=== PATIENT | female | born 1985 | race Caucasian/White ===

== ENCOUNTER 2017-04-26 08:56 | Emergency (ER) | payer SELFPAY ==
[~2017-04-26] VITALS: Ht 180.3 cm; Wt 77.0 kg
[2017-04-26 08:58] VITALS: BP 102/67; PULSE 74; RESP 20; TEMP 98.7; O2SAT 95
[2017-04-26] MEDS ORDERED: MACR100C2 PO (09:23)
--- NOTE | 2017-04-26 09:24 | PD ---
HPI Chief Complaint: Flank/Kidney Pain Time Seen by Provider: 09:09 Travel History International Travel<30 days: No Contact w/Intl Traveler<30days: No Traveled to known affect area: No History of Present Illness HPI Is a 32-year-old woman who presents to the emergency department complaining of sharp pelvic pain and back pain setting about 4 days ago with increased urination. No dysuria. No vaginal discharge or vaginal bleeding. Her last initial period was about 2 weeks ago. She is abnormal menstrual cycle since she had a ParaGard IUD placed about 4 years ago. She otherwise has been feeling generally well. No fevers or chills. No nausea or vomiting. She was incarcerated about 3 months ago and was diagnosed with chlamydia at that time. The ceiling time she's been treated for STI. She's not been sexually active since then. She has had kidney stones in the past but states that her pain was more severe at those times. History Past Medical History Narrative Medical Kidney Stones LMP: 3 weeks ago Social History Alcohol Use: No Tobacco Use: Yes Review of Systems Except as stated in HPI: all other systems reviewed are Neg Physical Exam Narrative GENERAL: Well-appearing 32-year-old woman, no acute distress. SKIN: Focused skin assessment warm/dry. NECK: Trachea midline. No JVD. CARDIOVASCULAR: Regular rate and rhythm. No murmur appreciated. RESPIRATORY: No accessory muscle use. Clear to auscultation. Breath sounds equal bilaterally. GASTROINTESTINAL: Abdomen soft, non-tender, nondistended. Hepatic and splenic margins not palpable. No CVA tenderness to percussion. MUSCULOSKELETAL: No obvious deformities. Data Data Last Documented VS Vital Signs Date Time Temp Pulse Resp B/P Pulse Ox O2 Delivery O2 Flow Rate FiO2 04/26/17 08:58 98.7 74 20 102/67 95 Room Air Orders Urinalysis - C+S If Indicated (04/26/17 09:09) Ed Urine Pregnancytest Poc (04/26/17 09:09) [facility] Medical Decision Making Medical Screen Exam Complete: Yes Emergency Medical Condition: Yes Differential Diagnosis UTI, STI, kidney stone, pyelonephritis, other Narrative Course Medical decision making This a 32 year-old woman presents to the emergency department complaining of pelvic pain, and polyuria suggestive of cystitis. She looks well. She's no abdominal tenderness or CVA tenderness to percussion. She has not been sexually active recently. Kidney stone and PID are also possible. We'll check urine, strongly suggestive of cystitis, we'll treat, otherwise reassess. Diagnosis Primary Impression: Acute cystitis Additional Instructions: Take antibiotics as prescribed. Return to the emergency department for any worsening abdominal pain, fevers, vomiting, or any other new or worsening symptoms. Follow up with your primary doctor in 3-5 days if you're not completely well. Med/Other Pt SpecificInfo: Prescription(s) given Scripts Nitrofurantoin Monohydrate Macrocrystals (Macrobid)100 Mg [id number] Mg PO BID 14 Days Ref 0 Prov:Danis Webber MD 04/26/17 Disposition: 01 DISCHARGE HOME Condition: Stable Danis Webber MD Apr 26, 2017 09:24
[2017-04-26 09:41] LABS: BLOOD, URINE NEG (NEG); GLUCOSE,URINE NEG (NEG); KETONE, URINE NEG (NEG); NITRITE,URINE NEG (NEG); SQUAMOUS EPITHELIAL CELL URINE 2 /hpf (0-5); URINE COLOR YELLOW (YELLW/STRAW)
[2017-04-26 09:43] LABS: COMMENT (UR) CULT NOT INDICATED; CULTURE IF INDICATED CULT NOT INDICATED
[2017-04-26] MEDS ORDERED: NAPR500 PO (09:57)
--- NOTE | 2017-04-26 09:58 | PD ---
Data Data Last Documented VS Vital Signs Date Time Temp Pulse Resp B/P Pulse Ox O2 Delivery O2 Flow Rate FiO2 04/26/17 08:58 98.7 74 20 102/67 95 Room Air Orders Urinalysis - C+S If Indicated (04/26/17 09:09) Ed Urine Pregnancytest Poc (04/26/17 09:09) Labs Laboratory Tests Test 04/26/17 09:10 Urine Color YELLOW Urine Turbidity CLEAR Urine pH 7.0 Urine Specific [place] 1.022 Urine Protein TRACE mg/dL Urine Glucose (UA) NEG mg/dL Urine Ketones NEG mg/dL Urine Occult Blood NEG Urine Nitrite NEG Urine Bilirubin NEG Urine Urobilinogen LESS THAN 2.0 MG/DL Urine Leukocyte Esterase NEG Urine RBC LESS THAN 1 /hpf Urine WBC 1 /hpf Urine Squamous Epithelial 2 /hpf Cells Microscopic Urinalysis Comment CULT NOT INDICATED MDM Supervised Visit with SEAN: No Narrative Course Previous note was inadvertently signed prior to patient's full evaluation. Patient with polyuria and flank pain felt to probably have a urinary tract infection. Urinalysis doesn't really support that. Wide GC and chlamydia on. She is not sexually active but did have treatment for chlamydia couple months ago. She is reportedly penicillin allergic and so they gave her azithromycin. We'll add GC and chlamydia onto her previous urine sample. We'll treat supportively with NSAIDs. Patient declines pelvic exam at this time but will follow-up is symptoms persist. Diagnosis Primary Impression: Pelvic pain in female Additional Instruction: Return to the emergency department for any worsening abdominal pain, fevers, vomiting, or any other new or worsening symptoms. Follow up with your primary doctor in 3-5 days if you're not completely well. Scripts Naproxen (Naprosyn)500 Mg [id number] Mg PO BID PRN (PAIN SCALE 1 TO 10) #20 TAB Prov:Danis Webber MD 04/26/17 Disposition: 01 DISCHARGE HOME Condition: Stable Danis Webber MD Apr 26, 2017 09:58
[2017-04-26] MEDS ORDERED: NAPROXEN 500 MG TAB PO ONE (10:00)
== END 2017-04-26 10:20 | disposition home or self-care (01) ==
LOC: NEPD 08:56
DX: R10.2 Pelvic and perineal pain (principal); R35.8 Other polyuria; M54.9 Dorsalgia, unspecified; Z87.442 Personal history of urinary calculi
CPT/HCPCS: 81001; 84703; 99283

== ENCOUNTER 2017-05-31 10:51 | Emergency (ER) | payer SELFPAY ==
[~2017-05-31 10:51] MED LIST: NAPR500 PO
[2017-05-31 10:55] VITALS: BP 115/77; PULSE 81; RESP 12; TEMP 98.2; O2SAT 99
--- NOTE | 2017-05-31 11:02 | PD ---
Physical Exam Date Seen by Provider: May 31, 2017 Time Seen by Provider: 11:00 Data Data Last Documented VS Vital Signs Date Time Temp Pulse Resp B/P Pulse Ox O2 Delivery O2 Flow Rate FiO2 05/31/17 10:55 98.2 81 12 115/77 99 MDM Supervised Visit with SEAN: No Narrative Course 32 YO F with complaint of 3 day history of 6/10 posterior ear pain radiating to the jaw. --F/C. Vitals reviewed. Patient seen in triage, awaiting bed placement. Demetria Everett May 31, 2017 11:01
[2017-05-31] MEDS ORDERED: NAPR500T PO (11:31)
--- NOTE | 2017-05-31 11:31 | PD ---
HPI Chief Complaint: Pain: Acute or Chronic Time Seen by Provider: 11:06 Travel History International Travel<30 days: No Contact w/Intl Traveler<30days: No Traveled to known affect area: No History of Present Illness HPI This is a 32-year-old female who presents to the emergency department with pain in her left face that's been going on for about 3 days, constant, moderate severity, radiating from behind her ear down her left jaw. She denies any fevers or chills and denies any discharge from her ear. She says she's been feeling a clicking sensation in her left jaw. She also has some wisdom teeth or haven't completely come in. 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 [facility] Social History Alcohol Use: No Tobacco Use: Yes Substance Use: No Allergies-Medications (Allergen,Severity, Reaction): Coded Allergies: Penicillin (Verified Allergy, Unknown, 04/26/17) Reported Meds & Prescriptions Reported Meds & Active Scripts Active Naprosyn (Naproxen) 500 Mg Tab 500 Mg PO BID PRN Review of Systems Except as stated in HPI: all other systems reviewed are Neg Physical Exam Narrative GENERAL:Well appearing, no acute distress SKIN: Focused skin assessment warm and dry. HEAD: Atraumatic. Normocephalic. EYES: Pupils equal and round. No injection or drainage. ENT: Moist mucous membranes. Tender to palpation over the left temporomandibular joint. No focal tenderness along the posterior left molars. No swelling. Tympanic membrane on the left is normal in appearance with no drainage in the ear canal or pain with manipulation of the auricle. NECK: Trachea midline. CARDIOVASCULAR: Regular rate and rhythm. No murmur appreciated. RESPIRATORY: Clear to auscultation. Breath sounds equal bilaterally. GASTROINTESTINAL: Abdomen soft, non-tender, nondistended. MUSCULOSKELETAL: No obvious deformities. NEUROLOGICAL: Awake and alert. No obvious cranial nerve deficits. Moving all extremities. PSYCHIATRIC: Appropriate mood and affect; insight and judgment normal. Data Data Last Documented VS Vital Signs Date Time Temp Pulse Resp B/P Pulse Ox O2 Delivery O2 Flow Rate FiO2 05/31/17 10:55 98.2 81 12 115/77 99 MDM Medical Decision Making Medical Screen Exam Complete: Yes Emergency Medical Condition: Yes Interpretation(s) Afebrile, no tachycardia, normotensive Differential Diagnosis TMJ pain, otitis media, otitis externa, mastoiditis, dental abscess Narrative Course This is a 32-year-old female who presents to the emergency department with pain along the left jaw. She has a clicking sensation in the jaw. I suspect she has TMJ pain. I think she would benefit from anti-inflammatories and she was given information regarding behavioral modification to help alleviate the symptoms. She otherwise appears well and I think is appropriate for outpatient management. Diagnosis Primary Impression: Temporomandibular joint (TMJ) pain Qualified Code: M26.622 - Arthralgia of left temporomandibular joint Patient Instructions: General Instructions Additional Instructions: If you develop swelling in your face, fevers or chills return to the emergency room. Med/Other Pt SpecificInfo: Prescription(s) given Scripts Naproxen 500 Mg Gib127 Mg PO BID PRN (PAIN SCALE 4 TO 10) #20 TAB Prov:Kassandra Corrales MD 05/31/17 Disposition: 01 DISCHARGE HOME Condition: Stable Kassandra Corrales MD May 31, 2017 11:31
[2017-05-31] MEDS ORDERED: NAPROXEN 500 MG TAB PO ONE (11:45)
== END 2017-05-31 11:39 | disposition home or self-care (01) ==
LOC: NEPD 10:51
DX: M26.622 Arthralgia of left temporomandibular joint (principal); F17.290 Nicotine dependence, other tobacco product, uncomplicated
CPT/HCPCS: 99283

== ENCOUNTER 2017-07-14 13:14 | Emergency (ER) | payer SELFPAY ==
[~2017-07-14] VITALS: Ht 180.3 cm; Wt 73.0 kg
[~2017-07-14 13:14] MED LIST changes: +NAPR500T PO
[2017-07-14 13:15] VITALS: BP 96/51; PULSE 82; RESP 20; TEMP 98.7; O2SAT 97
[2017-07-14 13:59] LABS: BLOOD, URINE NEG (NEG); COMMENT (UR) CULT NOT INDICATED; CULTURE IF INDICATED CULT NOT INDICATED; GLUCOSE,URINE NEG (NEG); KETONE, URINE NEG (NEG); MUCUS URINE FEW /lpf (OCC); NITRITE,URINE NEG (NEG); SQUAMOUS EPITHELIAL CELL URINE 2 /hpf (0-5); URINE COLOR YELLOW (YELLW/STRAW)
--- NOTE | 2017-07-14 14:06 | PD ---
HPI Chief Complaint: Complaint Time Seen by Provider: 14:02 Travel History International Travel<30 days: No Contact w/Intl Traveler<30days: No Traveled to known affect area: No History of Present Illness HPI 32-year-old female came to the emergency room with history of pelvic pain and pelvic discharge for past couple days. Patient has history of UTI and kidney stones and says this feels like that. She is currently at a drug rehabilitation facility. Vital signs are stable. There was a UA done in triage and it was negative for UTI or hematuria. Pain is in the pelvic area going down to the lower back and it is constant. Aggravating or relieving factors. Patient has past history of chlamydia in 2004. [facility] Past Medical History Narrative Medical List of her past medical, surgical, social and family history is reviewed from the nursing note. ?: Unknown Social History Alcohol Use: No Tobacco Use: Yes Substance Use: No Allergies-Medications (Allergen,Severity, Reaction): Coded Allergies: amoxicillin (Verified Allergy, Intermediate, hives, 07/14/17) penicillin G (Unverified Allergy, Unknown, 07/14/17) Comments List of her allergies reviewed from the nursing note. Reported Meds & Prescriptions Reported Meds & Active Scripts Active Flagyl (Metronidazole) 250 Mg Tab 250 Mg PO TID [address] (Doxycycline Hyclate) 100 Mg Tab 100 Mg PO BID 7 Days Reported Buspirone (Buspirone HCl) 5 Mg Tab 5 Mg PO BID Neurontin (Gabapentin) 400 Mg Cap 400 Mg PO TID Trazodone (Trazodone HCl) 50 Mg Tab 50 Mg PO HS Zoloft (Sertraline HCl) 50 Mg Tab 50 Mg PO DAILY Narrative Medication List of her home medications reviewed from the nursing note. Review of Systems Except as stated in HPI: all other systems reviewed are Neg Physical Exam Narrative GENERAL: Awake, alert, mild distress SKIN: Focused skin assessment warm/dry. HEAD: Atraumatic. Normocephalic. EYES: Pupils equal and round. No scleral icterus. No injection or drainage. ENT: No nasal bleeding or discharge. Mucous membranes pink and moist. NECK: Trachea midline. No JVD. CARDIOVASCULAR: Regular rate and rhythm. No murmur appreciated. RESPIRATORY: No accessory muscle use. Clear to auscultation. Breath sounds equal bilaterally. GASTROINTESTINAL: Abdomen soft, non-tender, nondistended. Hepatic and splenic margins not palpable. MUSCULOSKELETAL: No obvious deformities. No clubbing. No cyanosis. No edema. : External inspection was within normal limit. Speculum exam showed yellowish to brownish colored discharge, positive CMT, no adnexal tenderness, IUD thread out of the cervix NEUROLOGICAL: Awake and alert. No obvious cranial nerve deficits. Motor grossly within normal limits. Normal speech. PSYCHIATRIC: Appropriate mood and affect; insight and judgment normal. Data Data Last Documented VS Vital Signs Date Time Temp Pulse Resp B/P (MAP) Pulse Ox O2 Delivery O2 Flow Rate FiO2 07/14/17 15:21 128/78 (95) 100 07/14/17 13:15 98.7 82 20 Room Air Orders Orders Urinalysis - C+S If Indicated (07/14/17 13:30) Ed Urine Pregnancytest Poc (07/14/17 13:30) Gc And Chlamydia Pcr (07/14/17 14:10) Wet Prep Profile (07/14/17 14:10) Doxycycline (Vibratab) (07/14/17 14:45) Metronidazole (Flagyl) (07/14/17 14:45) Ceftriaxone Inj (Rocephin Inj) (07/14/17 14:45) Lidocaine 1% Inj (50 Ml) (Xylocaine 1% I (07/14/17 14:45) Labs Laboratory Tests Test 07/14/17 13:15 07/14/17 14:30 Urine Color YELLOW Urine Turbidity CLEAR Urine pH 6.0 Urine Specific [place] 1.025 Urine Protein TRACE mg/dL Urine Glucose (UA) NEG mg/dL Urine Ketones NEG mg/dL Urine Occult Blood NEG Urine Nitrite NEG Urine Bilirubin NEG Urine Urobilinogen 2.0 MG/DL Urine Leukocyte Esterase TRACE Urine RBC 1 /hpf Urine WBC 1 /hpf Urine Squamous Epithelial Cells 2 /hpf Urine Mucus FEW /lpf Microscopic Urinalysis Comment CULT NOT INDICATED Clue Cells (Wet Prep) NONE SEEN Vaginal Trichomonas (Wet Prep) NONE SEEN Vaginal Yeast (Wet Prep) NONE SEEN Chlamydia trachomatis DNA (PCR) NOT DETECTED Neisseria gonorrhoeae DNA (PCR) NOT DETECTED MDM Medical Decision Making Medical Screen Exam Complete: Yes Emergency Medical Condition: Yes Medical Record Reviewed: Yes Differential Diagnosis Cervicitis, PID, STD Narrative Course 2:46 PM given the exam findings and suspicious for PID. Patient will be getting IM ceftriaxone, by mouth doxycycline and by mouth Flagyl. I have answered all her questions to the best of my ability. Patient will be discharged home after that. Procedures EKG Prior to Arrival: No Diagnosis Primary Impression: PID (acute pelvic inflammatory disease) Additional Impression: Pelvic pain in female Referrals: Primary Care Physician Additional Instructions: Please take your medication as per the prescription direction. You can take Tylenol/Motrin/Advil/ibuprofen for pain. Return to the ER patient worsens or any other new concerns. Otherwise follow-up with the [employer]. Med/Other Pt SpecificInfo: Prescription(s) given Scripts Metronidazole (Flagyl) 250 Mg Tab 250 MG PO TID for Infection for 7 Days, TAB 0 Refills Prov: Rolando Cai MD 07/14/[address] (Doxycycline Hyclate DR) 100 Mg Tab 100 MG PO BID for Infection for 7 Days, #14 TAB 0 Refills Prov: Rolando Cai MD 07/14/17 Disposition: 01 DISCHARGE HOME Condition: Stable Rolando Cai MD Jul 14, 2017 14:06
[2017-07-14] MEDS ORDERED: BUSP5TAB PO (14:17)
[2017-07-14] MEDS ORDERED: NEUR400C PO (14:17)
[2017-07-14] MEDS ORDERED: ZOLO50TA PO (14:17)
[2017-07-14] MEDS ORDERED: TRAZ50TA12 PO (14:17)
[2017-07-14] MEDS ORDERED: metroNIDAZOLE 500 MG TAB PO ONE (14:45)
[2017-07-14] MEDS ORDERED: DOXYCYCLINE HYCLATE 100 MG TAB PO ONE (14:45)
[2017-07-14] MEDS ORDERED: LIDOCAINE HCL 1% 50 ML VIAL IM ONE (14:45)
[2017-07-14] MEDS ORDERED: cefTRIAXone 250 MG VIAL IM ONE (14:45)
[2017-07-14] MEDS ORDERED: DOXY1TAB6 PO (14:48)
[2017-07-14] MEDS ORDERED: METR250 PO (14:48)
[2017-07-14 15:21] VITALS: BP 128/78
[2017-07-14 17:13] LABS: CHLAMYDIA PCR NOT DETECTED (NOT DETECT); NEISSERIA PCR NOT DETECTED (NOT DETECT)
== END 2017-07-14 15:31 | disposition home or self-care (01) ==
LOC: NEPD 13:14
DX: N73.0 Acute parametritis and pelvic cellulitis (principal); Z72.0 Tobacco use
CPT/HCPCS: 81001; 84703; 87210; 87491; 87591; 96372; 99284; J0696

== ENCOUNTER 2017-11-27 17:31 | Emergency (ER) | payer SELFPAY ==
[~2017-11-27] VITALS: Ht 177.8 cm; Wt 75.0 kg
[~2017-11-27 17:31] MED LIST changes: +BUSP5TAB PO; +DOXY1TAB6 PO; +METR250 PO; -NAPR500 PO; -NAPR500T PO; +NEUR400C PO; +TRAZ50TA12 PO; +ZOLO50TA PO
[2017-11-27 17:32] VITALS: BP 141/64; PULSE 99; RESP 18; TEMP 98.2; O2SAT 99
--- NOTE | 2017-11-27 19:44 | PD ---
HPI Chief Complaint: Cold / Flu Symptoms Time Seen by Provider: 19:38 Travel History International Travel<30 days: No Contact w/Intl Traveler<30days: No Traveled to known affect area: No History of Present Illness HPI 32-year-old female presents for evaluation. For the past 5 days she has been having cough, congestion, now bilateral ear pressure as well. The cough is productive with green/yellow mucus. She has been having fevers as high as 101 at home. Symptoms are moderate, no aggravating or alleviating factors. Denies rash or recent travel. No sick contacts. She has no other complaints at this time. PFS Past Medical History Anxiety: Yes Depression: Yes ?: Not LMP: IUD Past Surgical History Surgical History: No Previous Surgery Social History Alcohol Use: No Tobacco Use: Yes (/ PPD) Substance Use: No Allergies-Medications (Allergen,Severity, Reaction): Coded Allergies: amoxicillin (Verified Allergy, Intermediate, hives, 07/14/17) penicillin G (Unverified Allergy, Unknown, 07/14/17) Reported Meds & Prescriptions Reported Meds & Active Scripts Active Proair Hfa 8.5 GM Inh (Albuterol Sulfate) 90 Mcg/Act Aer 2 Puff INH Q4-6H PRN 108 mcg/actuation Prednisone 20 Mg Tab 20 Mg PO BID 5 Days Azithromycin 250 Mg Tab 250 Mg PO DIRECTED Take 2 tabs (500 mg) on day 1 then 1 tab daily x 4 days. Flagyl (Metronidazole) 250 Mg Tab 250 Mg PO TID [address] (Doxycycline Hyclate) 100 Mg Tab 100 Mg PO BID 7 Days Reported Buspirone (Buspirone HCl) 5 Mg Tab 5 Mg PO BID Neurontin (Gabapentin) 400 Mg Cap 400 Mg PO TID Trazodone (Trazodone HCl) 50 Mg Tab 50 Mg PO HS Zoloft (Sertraline HCl) 50 Mg Tab 50 Mg PO DAILY Review of Systems Except as stated in HPI: all other systems reviewed are Neg Physical Exam Narrative GENERAL: Well-developed well-nourished female no acute distress SKIN: Warm and dry. HEAD: Atraumatic. Normocephalic. EYES: Pupils equal and round. No scleral icterus. No injection or drainage. ENT: No nasal bleeding or discharge. Mucous membranes pink and moist. Bilaterally the tympanic membranes are bulging and erythematous. NECK: Trachea midline. No JVD. No lymphadenopathy. CARDIOVASCULAR: Regular rate and rhythm. No murmur appreciated. RESPIRATORY: No accessory muscle use. Diffuse inspiratory and expiratory wheezing noted. GASTROINTESTINAL: Abdomen soft, non-tender, nondistended. Hepatic and splenic margins not palpable. MUSCULOSKELETAL: No obvious deformities. No clubbing. No cyanosis. No edema. NEUROLOGICAL: Awake and alert. No obvious cranial nerve deficits. Motor grossly within normal limits. Normal speech. PSYCHIATRIC: Appropriate mood and affect; insight and judgment normal. Data Data Last Documented VS Vital Signs Date Time Temp Pulse Resp B/P (MAP) Pulse Ox O2 Delivery O2 Flow Rate FiO2 11/27/17 20:07 99 21 11/27/17 17:32 98.2 99 18 141/64 (89) Orders Orders Influenzae A/B Antigen (11/27/17 19:42) Albuterol-Ipratropium Neb (Duoneb Neb) (11/27/17 19:45) Chest, Pa & Lat (11/27/17 19:42) Ed Discharge Order (11/27/17 20:30) MDM Medical Decision Making Medical Screen Exam Complete: Yes Emergency Medical Condition: Yes Medical Record Reviewed: Yes Differential Diagnosis Influenza, pneumonia, reactive airway disease, bronchitis, otitis media Narrative Course 32-year-old female presents with 5 days of fevers, cough, congestion, bilateral ear pressure. On examination she has diffuse wheezing. A chest x-ray will be obtained. The patient will be given DuoNeb treatment. An influenza antigen test has been ordered. Chest x-ray is normal. Influenza antigen is negative. She feels improved after DuoNeb treatment. Examination is consistent with bilateral otitis media, bronchitis. She is allergic to penicillin based products. She will be discharged with prednisone, albuterol, azithromycin. Diagnosis Primary Impression: Bronchitis Additional Impression: Bilateral otitis media Departure Forms: Tests/Procedures, Work Release Enter return to work date: Dec 08, 2017 Additional Instructions: Medication as prescribed. Stay well-hydrated and well-nourished. Return for any emergent medical conditions. Med/Other Pt SpecificInfo: Prescription(s) given Scripts Albuterol 8.5 GM Inh (Proair Hfa 8.5 GM Inh) 90 Mcg/Act Aer 2 PUFF INH Q4-6H Y for SHORTNESS OF BREATH, #1 INHALER 0 Refills 108 mcg/actuation Prov: Luisito Pulido MD 11/27/17 Prednisone (Prednisone) 20 Mg Tab 20 MG PO BID for 5 Days, #10 TAB 0 Refills Prov: Luisito Pulido MD 11/27/17 Azithromycin (Azithromycin) 250 Mg Tab 250 MG PO DIRECTED for Infection, #6 TAB 0 Refills Take 2 tabs (500 mg) on day 1 then 1 tab daily x 4 days. Prov: Luisito Pulido MD 11/27/17 Disposition: 01 DISCHARGE HOME Condition: Stable Joey Faria Nov 27, 2017 19:44
[2017-11-27 20:07] VITALS: O2SAT 99
[2017-11-27] MEDS: RESP: ALBUTEROL 2.5 MG/IPRATROPIUM 0.5 MG NEB (SCH) INH (20:07)
--- NOTE | 2017-11-27 20:24 | RADRPT ---
EXAM DATE/TIME: 11/27/2017 20:00 [place] COMPARISON: No previous studies available for comparison. INDICATIONS : Cough, shortness of breath, congestion, and chest tightness. MEDICAL HISTORY : None. SURGICAL HISTORY : None. ENCOUNTER: Initial ACUITY: 3 days PAIN SCORE: 6/10 LOCATION: Bilateral chest FINDINGS: PA and lateral views of the chest demonstrate the lungs to be symmetrically aerated without evidence of mass, infiltrate or effusion. The cardiomediastinal contours are unremarkable. Osseous structure s are intact. CONCLUSION: No acute disease. Chente Hoyt MD on November 27, 2017 at 20:21 Board Certified Radiologist. This report was verified electronically.
[2017-11-27] MEDS ORDERED: ALBUAER3 INH (20:30)
[2017-11-27] MEDS ORDERED: PRED20 PO (20:30)
[2017-11-27] MEDS ORDERED: AZIT250T3 PO (20:30)
== END 2017-11-27 20:37 | disposition home or self-care (01) ==
LOC: NEPK 17:31
DX: J40 Bronchitis, not specified as acute or chronic (principal); H66.93 Otitis media, unspecified, bilateral; F41.9 Anxiety disorder, unspecified; F32.9 Major depressive disorder, single episode, unspecified; F17.200 Nicotine dependence, unspecified, uncomplicated
CPT/HCPCS: 71046; 87804; 94640; 94664; 99284

== ENCOUNTER 2018-01-10 21:37 | Emergency (ER) | payer SELFPAY ==
[~2018-01-10] VITALS: Ht 177.8 cm; Wt 70.0 kg
[~2018-01-10 21:37] MED LIST changes: +ALBUAER3 INH; +AZIT250T3 PO; +PRED20 PO
[2018-01-10 22:10] VITALS: BP 110/56; PULSE 80; RESP 18; TEMP 99.1; O2SAT 99
[2018-01-11] MEDS ORDERED: SODIUM CHLOR 0.9% 1000 ML INJ 1,000 ML IV SCH (00:12)
[2018-01-11] MEDS ORDERED: SODIUM CHLORIDE 0.9% FLUSH 10 ML FLUSH IV FLUSH PRN (00:15)
[2018-01-11] MEDS ORDERED: ONDANSETRON HCL 4 MG/2 ML VIAL IVP ONE (00:15)
--- NOTE | 2018-01-11 00:17 | PD ---
HPI Chief Complaint: GI Complaint Time Seen by Provider: 00:08 Travel History International Travel<30 days: No Contact w/Intl Traveler<30days: No Traveled to known affect area: No History of Present Illness HPI 32-year-old female here for evaluation of possible food poisoning. The patient reports that she ate at a [place] restaurant for lunch, shortly after she developed nausea, vomiting, and diarrhea. She has had several episodes of vomiting and diarrhea and reports feeling generalized weakness. She has occasional abdominal cramps. She is not sure if she has had a fever. She reports that her son's grandmother who also ate at the restaurant with her has similar symptoms. PFSH Past Medical History Anxiety: Yes Depression: Yes Diminished Hearing: No Tetanus Vaccination: Unknown Influenza Vaccination: No ?: Not LMP: IUD Past Surgical History Surgical History: No Previous Surgery Social History Alcohol Use: No Tobacco Use: Yes (10/28 PPD) Substance Use: No Allergies-Medications (Allergen,Severity, Reaction): Coded Allergies: amoxicillin (Verified Allergy, Intermediate, hives, 01/10/18) penicillin G (Unverified Allergy, Unknown, 01/10/18) Reported Meds & Prescriptions Reported Meds & Active Scripts Active Proair Hfa 8.5 GM Inh (Albuterol Sulfate) 90 Mcg/Act Aer 2 Puff INH Q4-6H PRN 108 mcg/actuation Prednisone 20 Mg Tab 20 Mg PO BID 5 Days Azithromycin 250 Mg Tab 250 Mg PO DIRECTED Take 2 tabs (500 mg) on day 1 then 1 tab daily x 4 days. Flagyl (Metronidazole) 250 Mg Tab 250 Mg PO TID [address] (Doxycycline Hyclate) 100 Mg Tab 100 Mg PO BID 7 Days Reported Buspirone (Buspirone HCl) 5 Mg Tab 5 Mg PO BID Neurontin (Gabapentin) 400 Mg Cap 400 Mg PO TID Trazodone (Trazodone HCl) 50 Mg Tab 50 Mg PO HS Zoloft (Sertraline HCl) 50 Mg Tab 50 Mg PO DAILY Review of Systems Except as stated in HPI: all other systems reviewed are Neg Physical Exam Narrative GENERAL: Well-developed, well-nourished, comfortable, no apparent distress. SKIN: Focused skin assessment warm/dry. HEAD: Atraumatic. Normocephalic. EYES: Pupils equal and round. No scleral icterus. No injection or drainage. ENT: Mucous membranes pink and dry. NECK: Trachea midline. No JVD. CARDIOVASCULAR: Regular rate and rhythm. RESPIRATORY: No accessory muscle use. Clear to auscultation. Breath sounds equal bilaterally. GASTROINTESTINAL: Abdomen soft, non-tender, nondistended. MUSCULOSKELETAL: No obvious deformities. No clubbing. No cyanosis. No edema. NEUROLOGICAL: Awake and alert. No obvious cranial nerve deficits. Motor grossly within normal limits. Normal speech. PSYCHIATRIC: Appropriate mood and affect; insight and judgment normal. Data Data Last Documented VS Vital Signs Date Time Temp Pulse Resp B/P (MAP) Pulse Ox O2 Delivery O2 Flow Rate FiO2 01/10/18 22:10 99.1 80 18 110/56 (74) 99 Orders Orders Complete Blood Count With Diff (01/11/18 00:12) Comprehensive Metabolic Panel (01/11/18 00:12) Lipase (01/11/18 00:12) Prothrombin Time / Inr (Pt) (01/11/18 00:12) Act Partial Throm Time (Ptt) (01/11/18 00:12) Iv Access Insert/Monitor (01/11/18 00:12) Ecg Monitoring (01/11/18 00:12) Oximetry (01/11/18 00:12) Ondansetron Inj (Zofran Inj) (01/11/18 00:15) Sodium Chlor 0.9% 1000 Ml Inj (Ns 1000 M (01/11/18 00:12) Sodium Chloride 0.9% Flush (Ns Flush) (01/11/18 00:15) MDM Medical Decision Making Medical Screen Exam Complete: Yes Emergency Medical Condition: Yes Differential Diagnosis Gastroenteritis, food poisoning, metabolic abnormality, dehydration Narrative Course At approximately 1:00 AM at the end of my shift the patient was signed out to MYKE Faria to follow-up with labs, reassess, and disposition the patient. Luisito Pulido MD Jan 11, 2018 00:17
[2018-01-11 01:39] LABS: AUTOMATED NEUTROPHIL # 6.6 TH/MM3 (1.8-7.7); BASOPHIL % 0.4 % (0.0-2.0); EOSINOPHIL # 0.1 TH/MM3 (0-0.4); EOSINOPHIL % 0.9 % (0.0-4.0); HEMATOCRIT 39.2 % (35.0-46.0); HEMOGLOBIN 13.4 GM/DL (11.6-15.3); LYMPH % 19.8 % (9.0-44.0); LYMPHOCYTE # 1.8 TH/MM3 (1.0-4.8); MEAN CELL VOLUME 86.6 FL (80.0-100.0); MEAN CORPUSCULAR HEMOGLOBIN 29.7 PG (27.0-34.0); MEAN CORPUSCULAR HGB CONC 34.3 % (32.0-36.0); MEAN PLATELET VOLUME 9.7 FL (7.0-11.0); MONO % 5.1 % (0.0-8.0); MONOCYTE # 0.5 TH/MM3 (0-0.9); NEUT % 73.8 % (16.0-70.0); PLATELET COUNT 151 TH/MM3 (150-450); RED BLOOD COUNT 4.53 MIL/MM3 (4.00-5.30); RED CELL DISTRIBUTION WIDTH 14.6 % (11.6-17.2)
--- NOTE | 2018-01-11 01:49 | PD ---
Data Data Last Documented VS Vital Signs Date Time Temp Pulse Resp B/P (MAP) Pulse Ox O2 Delivery O2 Flow Rate FiO2 01/10/18 22:10 99.1 80 18 110/56 (74) 99 Orders Orders Complete Blood Count With Diff (01/11/18 00:12) Comprehensive Metabolic Panel (01/11/18 00:12) Lipase (01/11/18 00:12) Prothrombin Time / Inr (Pt) (01/11/18 00:12) Act Partial Throm Time (Ptt) (01/11/18 00:12) Iv Access Insert/Monitor (01/11/18 00:12) Ecg Monitoring (01/11/18 00:12) Oximetry (01/11/18 00:12) Ondansetron Inj (Zofran Inj) (01/11/18 00:15) Sodium Chlor 0.9% 1000 Ml Inj (Ns 1000 M (01/11/18 00:12) Sodium Chloride 0.9% Flush (Ns Flush) (01/11/18 00:15) Ed Discharge Order (01/11/18 02:21) Labs Laboratory Tests Test 01/11/18 01:12 White Blood Count 9.0 TH/MM3 Red Blood Count 4.53 MIL/MM3 Hemoglobin 13.4 GM/DL Hematocrit 39.2 % Mean Corpuscular Volume 86.6 FL Mean Corpuscular Hemoglobin 29.7 PG Mean Corpuscular Hemoglobin Concent 34.3 % Red Cell Distribution Width 14.6 % Platelet Count 151 TH/MM3 Mean Platelet Volume 9.7 FL Neutrophils (%) (Auto) 73.8 % Lymphocytes (%) (Auto) 19.8 % Monocytes (%) (Auto) 5.1 % Eosinophils (%) (Auto) 0.9 % Basophils (%) (Auto) 0.4 % Neutrophils # (Auto) 6.6 TH/MM3 Lymphocytes # (Auto) 1.8 TH/MM3 Monocytes # (Auto) 0.5 TH/MM3 Eosinophils # (Auto) 0.1 TH/MM3 Basophils # (Auto) 0.0 TH/MM3 CBC Comment DIFF FINAL Differential Comment Prothrombin Time 11.6 SEC Prothromb Time International Ratio 1.1 RATIO Activated Partial Thromboplast Time 28.7 SEC Blood Urea Nitrogen 9 MG/DL Creatinine 0.74 MG/DL Random Glucose 85 MG/DL Total Protein 6.6 GM/DL Albumin 3.1 GM/DL Calcium Level 7.6 MG/DL Alkaline Phosphatase 106 U/L Aspartate Amino Transf (AST/SGOT) 172 U/L Alanine Aminotransferase (ALT/SGPT) 152 U/L Total Bilirubin 0.5 MG/DL Sodium Level 141 MEQ/L Potassium Level 4.4 MEQ/L Chloride Level 107 MEQ/L Carbon Dioxide Level 27.2 MEQ/L Anion Gap 7 MEQ/L Estimat Glomerular Filtration Rate 92 ML/MIN Lipase 123 U/L MDM Medical Record Reviewed: Yes Supervised Visit with SEAN: No Narrative Course I assumed care of this patient pending lab work. Briefly this patient reports that she ate at a [employer] restaurant yesterday and has had nausea, vomiting, diarrhea since then. Her abdomen is soft and nontender. She received Zofran, IV fluids and she feels improved. Her lab work reveals elevated liver enzymes with an AST of 172 and ALT of 152. She has no history of hepatitis. Upon reexamination her symptoms have resolved. I recommended that she follow-up with her primary care physician for repeat liver enzyme tests in 1-2 weeks. She will be discharged with Zofran. Diagnosis Primary Impression: Gastroenteritis Departure Forms: Tests/Procedures, Work Release Enter return to work date: Jan 11, 2018 Additional Instruction: Medication as needed. Slowly advance diet as tolerated. Return for any acutely new or worsening symptoms. As discussed, your liver enzymes were elevated- AST 172, ALT 152 follow-up with primary care physician in 1-2 weeks for recheck. Med/Other Pt SpecificInfo: Prescription(s) given Scripts Ondansetron (Zofran) 4 Mg Tab 4 MG PO Q6HR Y for NAUSEA OR VOMITING, #20 TAB 0 Refills Prov: Chente Armas MD 01/11/18 Disposition: DISCHARGE HOME Condition: Stable Joey Faria Jan 11, 2018 01:49
[2018-01-11 02:03] LABS: ALKALINE PHOSPHATASE 106 U/L (45-117); ALT (GPT) 152 U/L (10-53); TOTAL BILIRUBIN ADULT 0.5 MG/DL (0.2-1.0); TOTAL PROTEIN 6.6 GM/DL (6.4-8.2)
[2018-01-11 02:04] LABS: ALBUMIN 3.1 GM/DL (3.4-5.0); AST (GOT) 172 U/L (15-37); BICARBONATE 27.2 MEQ/L (21.0-32.0); BLOOD UREA NITROGEN 9 MG/DL (7-18); CALCIUM 7.6 MG/DL (8.5-10.1); CHLORIDE 107 MEQ/L (98-107); CREATININE 0.74 MG/DL (0.50-1.00); GLOMERULAR FILTRATION RATE 92 ML/MIN (>89); GLUCOSE,RANDOM 85 MG/DL (74-106); SODIUM (NA) 141 MEQ/L (136-145)
[2018-01-11 02:06] LABS: INTERNATIONAL NORMALIZED RATIO 1.1 RATIO; PROTHROMBIN TIME - PATIENT 11.6 SEC (9.8-11.6)
[2018-01-11] MEDS ORDERED: ZOFR4TAB PO (02:19)
== END 2018-01-11 02:30 | disposition home or self-care (01) ==
LOC: NEPD 21:37
DX: K52.9 Noninfective gastroenteritis and colitis, unspecified (principal); R74.8 Abnormal levels of other serum enzymes; F41.9 Anxiety disorder, unspecified; F32.9 Major depressive disorder, single episode, unspecified; F17.200 Nicotine dependence, unspecified, uncomplicated
CPT/HCPCS: 80053; 83690; 85025; 85610; 85730; 96374; 99284; J2405; J7030

== ENCOUNTER 2018-08-27 19:32 | Inpatient (IN) ==
[2018-08-27] MEDS ORDERED: Acetaminophen 325 MG Tablet PO ONE (22:06)
[2018-08-27] MEDS ORDERED: Morphine Inj 4 MG/ML Vial IV.PUSH ONE (22:06)
--- NOTE | 2018-08-27 22:14 | ED ---
HPI General Chief complaint: Abdominal Pain Stated complaint: side pain Time Seen by Provider: 08/27/18 22:00 Source: patient Mode of arrival: ambulatory Limitations: no limitations History of Present Illness HPI narrative: 33-year-old female here for evaluation of left flank and left upper quadrant abdominal pain, fever, vaginal discharge. The symptoms have been going on for about 2 days. She states that 5 days ago she began having flulike symptoms with fever, upper respiratory symptoms. She states that the symptoms have been improving, however she now has left upper quadrant and left flank pain that has become worse over the last couple of days. Pain is sharp, constant, worse with movements and inspiration. Vaginal discharge is white and not foul-smelling. She is sexually active with one partner and believe she is in a monogamous relationship. She denies dysuria or hematuria. She does admit to history of IV drug use, but states that she last used 2 months ago. She denies midline vertebral pain. No urinary or bowel incontinence or retention. Related Data Home Medications Medication Instructions Recorded Confirmed No Known Home Medications 08/27/18 08/27/18 Allergies Allergy/AdvReac Type Severity Reaction Status Date / Time amoxicillin Allergy Intermediate hives Verified 08/27/18 22:10 penicillin G Allergy Unknown Hives Verified 08/27/18 22:10 Review of Systems ROS: all other systems reviewed are negative [facility] Medical History Medical History No pertinent past medical history (Acute) Surgical History Surgical History No pertinent past surgical history (Acute) Social History Social History Substance History: Past History Second Hand Smoke Exposure: Yes Smoking Status: Heavy tobacco smoker Tobacco Type: Cigarettes How Often Do You Have a Drink Containing Alcohol: Monthly or less Recent Travel in [facility] within the Last 8 Weeks: No Recent Out of Country Travel within the Last 8 Weeks: No Substance Abuse Detail Opiates: Substance Use Status: Early Remission Route Used Substance Abuse: Intravenously Reason for Use: Get High Immunization History Tetanus Immunization: Unsure Exam Narrative Exam Narrative: GENERAL: Well-developed, well-nourished, comfortable, no apparent distress. SKIN: Focused skin assessment warm/dry. No rash. HEAD: Atraumatic. Normocephalic. EYES: Pupils equal and round. No scleral icterus. No injection or drainage. ENT: Mucous membranes pink and dry. Pharynx with moderate erythema without exudates. Uvula is midline. Normal phonation. No drooling or stridor. NECK: Trachea midline. No JVD. No nuchal rigidity. CARDIOVASCULAR: Tachycardic, rate 115, regular. No murmur. RESPIRATORY: No accessory muscle use. Clear to auscultation. Breath sounds equal bilaterally. GASTROINTESTINAL: Abdomen soft, non-tender, nondistended. Hepatic and splenic margins not palpable. M[employer]: Exam performed in the presence of a female nurse. Normal external genitalia. Scant/whitish/[id number] vaginal discharge. Normal- appearing cervix. No CMT. No adnexal masses or tenderness MUSCULOSKELETAL: No obvious deformities. No clubbing. No cyanosis. No edema. No midline vertebral step-off or tenderness. Moderate left CVA tenderness. No right CVA tenderness. NEUROLOGICAL: Awake and alert. No obvious cranial nerve deficits. Motor grossly within normal limits. Normal speech. PSYCHIATRIC: Appropriate mood and affect; insight and judgment normal. Course Initial Documented Vital Signs Temperature 100.5 F H 08/27/18 19:39 Pulse Rate 114 H 08/27/18 19:39 Blood Pressure 140/67 08/27/18 19:39 Pulse Oximetry 96 08/27/18 19:39 Last Documented Vital Signs Temperature 100.5 F H 08/27/18 19:39 Pulse Rate 66 08/27/18 21:00 Respiratory Rate 18 08/28/18 00:30 Blood Pressure 140/67 08/27/18 19:39 Pulse Oximetry 97 08/27/18 21:00 Medical Decision Making MDM Narrative Medical decision making narrative: Initial vital signs show heart rate 114, blood pressure 140/67, pulse ox 96% on room air, oral temp of 100.5 F. Sepsis protocol initiated, the patient was given 1 g of IV Rocephin for suspected pyelonephritis given left flank pain with fever and history of pyelonephritis. CBC is remarkable for WBC 20.3. CMP is remarkable for potassium 3.0 which was replaced orally. UA is suggestive of UTI. Wet prep is positive for clue cells. Patient was given a dose of 500 mg of oral Flagyl. Frio screen is negative. Influenza is negative. CT abdomen pelvis: CONCLUSION: Cholelithiasis with dilatation of common bile duct but no discrete stone identified. MRCP could be performed for further evaluation if clinically indicated. Patient was made aware of all findings. She did have some relief of pain with morphine, however it did not completely resolved. She was given a dose of Toradol with further relief of her pain. On reassessment she still has left- sided pain. She does not have any right-sided abdominal pain or tenderness. There is negative Benson sign. She does have several gallstones with an abnormally dilated CBD. Her urine does show urobilinogen, although her serum bilirubin and LFTs are within normal range. There is no midline vertebral step- off or tenderness. She last used IV drugs 2 months ago. I do not suspect an epidural abscess. She was given 1 g of IV Rocephin for her UA findings as well as 500 mg of oral Flagyl for bacterial vaginosis. She will be admitted for further treatment and evaluation and likely MRCP. Case discussed with hospitalist Dr. Damian who will admit the patient to her service. Medical Screen Exam Complete: Yes Emergency Medical Condition: Yes Differential Diagnosis Differential Diagnosis: Pyelonephritis, pneumonia, UTI, sepsis, viral illness, mononucleosis, epidural abscess/discitis less likely, influenza, vulvovaginal candidiasis, PID, BV Lab Data Result diagrams: 08/27/18 22:35 08/27/18 22:35 POC Results POC Urine Results Negative Lab Results 08/27/18 08/27/18 08/27/18 Range/Units 22:30 22:35 22:35 WBC 20.3 H (4.0-11.0) th/mm3 RBC 5.06 (4.00-5.30) mil/mm3 Hgb 15.2 (11.6-15.3) gm/dL Hct 46.1 H (35.0-46.0) % MCV 91.1 (80.0-100.0) fL MCH 30.1 (27.0-34.0) pg MCHC 33.0 (32.0-36.0) % RDW 14.0 (11.6-17.2) % Plt Count 243 (150-450) th/mm3 MPV 9.1 (7.0-11.0) fL Neut % (Auto) 80.8 H (16.0-70.0) % Lymph % (Auto) 11.2 (9.0-44.0) % Frio % (Auto) 7.5 (0.0-8.0) % Eos % (Auto) 0.1 (0.0-4.0) % Baso % (Auto) 0.4 (0.0-2.0) % Neut # (Auto) 16.4 H (1.8-7.7) th/mm3 Lymph # (Auto) 2.3 (1.0-4.8) th/mm3 Frio # (Auto) 1.5 H (0.0-0.9) th/mm3 Eos # (Auto) 0.0 (0.0-0.4) th/mm3 Baso # (Auto) 0.1 (0.0-0.2) th/mm3 WBC Differential . Differential Comment Auto diff final PT 11.3 (9.8-11.6) sec INR 1.1 Ratio APTT 34.1 H (23.4-31.7) sec Sodium (136-145) meq/L Potassium (3.5-5.1) meq/L Chloride (98-107) meq/L Carbon Dioxide (21.0-32.0) meq/L Anion Gap (5-15) meq/L BUN (7-18) mg/dL Creatinine (0.50-1.00) mg/dL Estimated GFR (>89) mL/min Random Glucose (74-106) mg/dL Lactic Acid (0.4-2.0) mmol/L Calcium (8.5-10.1) mg/dL Total Bilirubin (0.2-1.0) mg/dL AST (15-37) U/L ALT (10-53) U/L Alkaline Phosphatase (45-117) U/L Total Protein (6.4-8.2) g/dL Albumin (3.4-5.0) g/dL Urine Color Yellow (Yellw/Straw) Urine Clarity Clear (Clear) Urine pH 6.0 (5.0-8.5) Ur Specific [place] 1.010 (1.002-1.035) Urine Protein Negative (Neg-Trace) mg/dL Urine Glucose (UA) Negative (Negative) mg/dL Urine Ketones Negative (Negative) mg/dL Urine Occult Blood Small H (Negative) Urine Nitrate Negative (Negative) Urine Bilirubin Negative (Negative) Urine Urobilinogen 2.0 H (Less than 2) mg/dL Ur Leukocyte Esterase Small H (Negative) Urine RBC 1 (0-3) /hpf Urine WBC 31 H (0-5) /hpf Ur Squamous Epith Cells 3 (0-5) /hpf Urine Bacteria Rare H (None) /hpf Urine Mucus Few H (Occasional) /lpf Micro UA Comment Culture indicated Ur Microscopic Review Not Reportable Urine Culture Comments Culture indicated Clue Cells (Wet Prep) (None Seen) Trichomonas (Wet Prep) (None Seen) Yeast (Wet Prep) (None Seen) Monoscreen (Neg) 08/27/18 08/27/18 08/27/18 Range/Units 22:35 22:35 22:40 WBC (4.0-11.0) th/mm3 RBC (4.00-5.30) mil/mm3 Hgb (11.6-15.3) gm/dL Hct (35.0-46.0) % MCV (80.0-100.0) fL MCH (27.0-34.0) pg MCHC (32.0-36.0) % RDW (11.6-17.2) % Plt Count (150-450) th/mm3 MPV (7.0-11.0) fL Neut % (Auto) (16.0-70.0) % Lymph % (Auto) (9.0-44.0) % Frio % (Auto) (0.0-8.0) % Eos % (Auto) (0.0-4.0) % Baso % (Auto) (0.0-2.0) % Neut # (Auto) (1.8-7.7) th/mm3 Lymph # (Auto) (1.0-4.8) th/mm3 Frio # (Auto) (0.0-0.9) th/mm3 Eos # (Auto) (0.0-0.4) th/mm3 Baso # (Auto) (0.0-0.2) th/mm3 WBC Differential Differential Comment PT (9.8-11.6) sec INR Ratio APTT (23.4-31.7) sec Sodium 139 (136-145) meq/L Potassium 3.0 L (3.5-5.1) meq/L Chloride 101 (98-107) meq/L Carbon Dioxide 26.7 (21.0-32.0) meq/L Anion Gap 11 (5-15) meq/L BUN 7 (7-18) mg/dL Creatinine 1.11 H (0.50-1.00) mg/dL Estimated GFR 57 L (>89) mL/min Random Glucose 93 (74-106) mg/dL Lactic Acid 1.9 (0.4-2.0) mmol/L Calcium 8.6 (8.5-10.1) mg/dL Total Bilirubin 0.6 (0.2-1.0) mg/dL AST 17 (15-37) U/L ALT 20 (10-53) U/L Alkaline Phosphatase 80 (45-117) U/L Total Protein 8.2 (6.4-8.2) g/dL Albumin 3.3 L (3.4-5.0) g/dL Urine Color (Yellw/Straw) Urine Clarity (Clear) Urine pH (5.0-8.5) Ur Specific [place] (1.002-1.035) Urine Protein (Neg-Trace) mg/dL Urine Glucose (UA) (Negative) mg/dL Urine Ketones (Negative) mg/dL Urine Occult Blood (Negative) Urine Nitrate (Negative) Urine Bilirubin (Negative) Urine Urobilinogen (Less than 2) mg/dL Ur Leukocyte Esterase (Negative) Urine RBC (0-3) /hpf Urine WBC (0-5) /hpf Ur Squamous Epith Cells (0-5) /hpf Urine Bacteria (None) /hpf Urine Mucus (Occasional) /lpf Micro UA Comment Ur Microscopic Review Urine Culture Comments Clue Cells (Wet Prep) (None Seen) Trichomonas (Wet Prep) (None Seen) Yeast (Wet Prep) (None Seen) Monoscreen Neg (Neg) 08/27/18 Range/Units 23:25 WBC (4.0-11.0) th/mm3 RBC (4.00-5.30) mil/mm3 Hgb (11.6-15.3) gm/dL Hct (35.0-46.0) % MCV (80.0-100.0) fL MCH (27.0-34.0) pg MCHC (32.0-36.0) % RDW (11.6-17.2) % Plt Count (150-450) th/mm3 MPV (7.0-11.0) fL Neut % (Auto) (16.0-70.0) % Lymph % (Auto) (9.0-44.0) % Frio % (Auto) (0.0-8.0) % Eos % (Auto) (0.0-4.0) % Baso % (Auto) (0.0-2.0) % Neut # (Auto) (1.8-7.7) th/mm3 Lymph # (Auto) (1.0-4.8) th/mm3 Frio # (Auto) (0.0-0.9) th/mm3 Eos # (Auto) (0.0-0.4) th/mm3 Baso # (Auto) (0.0-0.2) th/mm3 WBC Differential Differential Comment PT (9.8-11.6) sec INR Ratio APTT (23.4-31.7) sec Sodium (136-145) meq/L Potassium (3.5-5.1) meq/L Chloride (98-107) meq/L Carbon Dioxide (21.0-32.0) meq/L Anion Gap (5-15) meq/L BUN (7-18) mg/dL Creatinine (0.50-1.00) mg/dL Estimated GFR (>89) mL/min Random Glucose (74-106) mg/dL Lactic Acid (0.4-2.0) mmol/L Calcium (8.5-10.1) mg/dL Total Bilirubin (0.2-1.0) mg/dL AST (15-37) U/L ALT (10-53) U/L Alkaline Phosphatase (45-117) U/L Total Protein (6.4-8.2) g/dL Albumin (3.4-5.0) g/dL Urine Color (Yellw/Straw) Urine Clarity (Clear) Urine pH (5.0-8.5) Ur Specific [place] (1.002-1.035) Urine Protein (Neg-Trace) mg/dL Urine Glucose (UA) (Negative) mg/dL Urine Ketones (Negative) mg/dL Urine Occult Blood (Negative) Urine Nitrate (Negative) Urine Bilirubin (Negative) Urine Urobilinogen (Less than 2) mg/dL Ur Leukocyte Esterase (Negative) Urine RBC (0-3) /hpf Urine WBC (0-5) /hpf Ur Squamous Epith Cells (0-5) /hpf Urine Bacteria (None) /hpf Urine Mucus (Occasional) /lpf Micro UA Comment Ur Microscopic Review Urine Culture Comments Clue Cells (Wet Prep) Present H (None Seen) Trichomonas (Wet Prep) None seen (None Seen) Yeast (Wet Prep) None seen (None Seen) Monoscreen (Neg) Imaging Data Radiologist's impression: Abdomen/Pelvis CT 08/27/18 22:06 CONCLUSION: Cholelithiasis with dilatation of common bile duct but no discrete stone identified. MRCP could be performed for further evaluation if clinically indicated. Chest X-Ray 08/27/18 22:06 CONCLUSION: Negative examination. Discharge Plan Discharge Disposition Patient Disposition: 30 Still Patient Discharge Condition Condition: Stable Discharge Details Diagnosis: Sepsis, UTI (urinary tract infection), Bacterial vaginosis, Cholelithiasis, Common bile duct dilatation Physicians Team ED Provider: Luisito Pulido Primary Care Provider: Primary Care Haleigh Richard Rxs /Orders / Referrals /Forms Prescriptions: No Action No Known Home Medications RF: 0 Discharge Interventions Interventions: Vital Signs Last Done: 08/28/18 01:14 Status ED Status: With Doctor
[2018-08-27] MEDS ORDERED: Sod Chloride 0.9% Inj 800 ML IV.SIG SCH (22:15)
[2018-08-27] MEDS ORDERED: Sod Chloride 0.9% Inj 1,000 ML IV.SIG SCH (22:15)
--- NOTE | 2018-08-27 22:26 | XR ---
EXAM DATE: 08/27/2018 10:21 PM EDT AGE/SEX: 33 years / Female INDICATIONS: Left side lower chest pain. CLINICAL DATA: This is the patient's initial encounter. Patient reports that signs and symptoms have been present for 1 day and indicates a pain score of 8/10. MEDICAL/SURGICAL HISTORY: None. None. COMPARISON: [facility] – [place], [place]ST PA & LAT, 11/27/2017. . FINDINGS: A single AP view of the chest demonstrates the lungs to be symmetrically aerated without evidence of mass, infiltrate or effusion. The cardiomediastinal contours are unremarkable. Osseous structures a re intact. CONCLUSION: Negative examination. Electronically signed by: Colt Fernandez MD 08/27/2018 10:24 PM EDT
[2018-08-27 23:07] LABS: Baso # (Auto) 0.1 th/mm3 (0.0-0.2); Baso % (Auto) 0.4 % (0.0-2.0); Eos % (Auto) 0.1 % (0.0-4.0); Hematocrit 46.1 % (35.0-46.0); Hemoglobin 15.2 gm/dL (11.6-15.3); Lymph # (Auto) 2.3 th/mm3 (1.0-4.8); Lymph % (Auto) 11.2 % (9.0-44.0); Mean Corpuscular Hemoglobin 30.1 pg (27.0-34.0); Mean Corpuscular Volume 91.1 fL (80.0-100.0); Mean Platelet Volume 9.1 fL (7.0-11.0); Mono # (Auto) 1.5 th/mm3 (0.0-0.9); Mono % (Auto) 7.5 % (0.0-8.0); Neut # (Auto) 16.4 th/mm3 (1.8-7.7); Neut % (Auto) 80.8 % (16.0-70.0); Platelet Count 243 th/mm3 (150-450); Red Blood Count 5.06 mil/mm3 (4.00-5.30); White Blood Count 20.3 th/mm3 (4.0-11.0)
[2018-08-27 23:09] LABS: Bacteria,Urine Rare /hpf; Bilirubin,Urine Negative (Negative); Clarity,Urine Clear (Clear); Color,Urine Yellow (Yellw/Straw); Glucose,Urine (UA) Negative (Negative); Leukocyte Esterase,Urine Small (Negative); Mucus,Urine Few /lpf (Occasional); Nitrite,Urine Negative (Negative); Squamous Epithelial Cell,Urine 3 /hpf (0-5)
[2018-08-27 23:15] LABS: Mono Screen Neg (Neg)
[2018-08-27 23:18] LABS: Activated Partial Thrombo Time 34.1 sec (23.4-31.7); Albumin 3.3 g/dL (3.4-5.0); Anion Gap 11 meq/L (5-15); Aspartate Aminotransferase 17 U/L (15-37); Blood Urea Nitrogen 7 mg/dL (7-18); Calcium 8.6 mg/dL (8.5-10.1); Carbon Dioxide 26.7 meq/L (21.0-32.0); Chloride 101 meq/L (98-107); Glomerular Filtration Rate 57 mL/min (>89); Glucose,Random 93 mg/dL (74-106); INR 1.1 Ratio; Prothrombin Time 11.3 sec (9.8-11.6); Sodium 139 meq/L (136-145)
[2018-08-27 23:19] LABS: Alanine Aminotransferase 20 U/L (10-53)
[2018-08-27 23:21] LABS: Alkaline Phosphatase 80 U/L (45-117); Total Protein 8.2 g/dL (6.4-8.2)
[2018-08-27] MEDS ORDERED: Ketorolac Inj 30 MG/ML (IVP) Vial IV.PUSH ONE (23:33)
[2018-08-28] MEDS ORDERED: metroNIDAZOLE 500 MG Tablet PO ONE (00:03)
--- NOTE | 2018-08-28 00:46 | CT ---
EXAM DATE: 08/28/2018 12:11 AM EDT AGE/SEX: 33 years / Female INDICATIONS: Left upper quadrant pain radiating to left flank. CLINICAL DATA: This is the patient's initial encounter. Patient reports that signs and symptoms have been present for 3 days and indicates a pain score of 6/10. MEDICAL/SURGICAL HISTORY: Renal calculi. None. ORAL CONTRAST: No oral contrast ingested. RADIATION DOSE: 6.71 CTDI (mGy) COMPARISON: No prior exams available for comparison. TECHNIQUE: Multiple contiguous axial images were obtained through the abdomen and pelvis following b olus infusion of 97 ml Omnipaque 350 (iohexol) nonionic water-soluble contrast as a single exam dos e. No oral contrast ingested. Using automated exposure control and adjustment of the mA and/or kV ac cording to patient size, radiation dose was kept as low as reasonably achievable to obtain optimal di agnostic quality images. DICOM format image data is available electronically for review and comparis on. FINDINGS: There is parenchymal scarring bilaterally. The liver and spleen are normal in size and no focal defec ts are identified. There are multiple gallstones within the gallbladder without wall thickening or p ericholecystic fluid the largest measuring 4 mm. The pancreas demonstrates no evidence of mass and th ere is no dilatation of the pancreatic duct. The common bile duct is dilated to 13 mm but no stone is identified. MRCP could be performed for further evaluation if clinically indicated. The adrenal gla nds and kidneys appear normal bilaterally. No hydronephrosis or mass lesions are identified. Examination of the pelvis demonstrates no evidence of free fluid or pelvic mass. No abnormally enlarg ed inguinal or retroperitoneal lymph nodes are present. The bladder is unremarkable. Intrauterine dev ice is present in the expected position. CONCLUSION: Cholelithiasis with dilatation of common bile duct but no discrete stone identified. MRCP could be pe rformed for further evaluation if clinically indicated. Electronically signed by: Ricco Flood MD 08/28/2018 12:45 AM EDT
[2018-08-28] MEDS ORDERED: Acetaminophen 325 MG Tablet PO PRN (01:26)
[2018-08-28] MEDS ORDERED: Bisacodyl 10 MG Supp RECTAL PRN (01:26)
--- NOTE | 2018-08-28 02:05 | P.HPIM ---
History of Present Illness Primary Care Physician: No Primary Care Physician History of Present Illness: This is a 33-year-old female with no significant PMH who presented to the ER with complaints of left flank pain in addition to fever and vaginal discharge x2 days. Pain is intermittent, sharp, 10/10, non-radiating. Reports h/o IVDU, however no use in several months. On arrival, BP 101/52, HR 115, O2 sat 97% on RA, Temp 100.5. WBC 20.3. INR 1.1. K+ 3.0. Creatinine 1.11. UA positive for UTI. +Clue Cells. Chlamydia/Gonorrhoeae negative, Monoscreen negative. CT Abdomen/Pelvis with cholelithiasis, dilatation of CBD but no stone identified , recommendation for MRCP. CXR negative. S/p Rocephin and Flagyl PO in ER. - Diagnosis (1) Sepsis (2) UTI (urinary tract infection) (3) Bacterial vaginosis (4) Cholelithiasis Inpatient Certification: I certify that the inpatient services were ordered in accordance with Medicare regulations governing the order. This includes certification that hospital inpatient services are reasonable and necessary and in the case of services not specified as inpatient-only under 42 CFR 419.22(n), that they are appropriately provided as inpatient services in accordance to with the 2-midnight benchmark under 43 CFR 412.3(e) Estimated Total Length of Stay (Days): 2 Plans for Post Hospital Care: Not yet determined Review of Systems PAST FAMILY HISTORY: Reviewed. No h/o DM or CAD All other systems reviewed negative except as stated in HPI PMFSH - History History Provided By: Patient - Medical History Medical History: Medical History (Last Updated 08/27/18 @ 22:10 by Tam Campo Jr, RN) No pertinent past medical history - Surgical History Surgical History: Surgical History (Last Updated 08/27/18 @ 22:10 by Tam Campo Jr, RN) No pertinent past surgical history - Tobacco History Second Hand Smoke Exposure: Yes Tobacco Use In Past 30 Days: Yes Smoking Status: Heavy tobacco smoker Tobacco Type: Cigarettes - Alcohol History How Often Do You Have a Drink Containing Alcohol: Monthly or less - Substance Use History Substance History: Past History - Substance Use Type Opiates Status: Early Remission Route Used: Intravenously Reason for Use: Get High - Travel History Recent Travel in the [facility] Within the Last 8 Weeks: No Recent Travel Out of the Country Within the Last 8 Weeks: No - Immunization History Tetanus Immunization: Unsure Medications and Allergies Active Medications: Active Medications Acetaminophen (Tylenol) 650 mg PO Q4H PRN PRN Reason: Temp > 100.4 Al Hydroxide/Mg Hydroxide (Milk Of Magnesia Liq) 30 ml PO Q12H PRN PRN Reason: Mild Constipation Bisacodyl (Dulcolax Supp) 10 mg RECTAL DAILY PRN PRN Reason: SEVERE CONSITIPATION Sodium Chloride (Ns Inj) 1,000 mls @ 0 mls/hr IV.SIG .Q0M [facility] Last Infusion: 08/27/18 23:51 Dose: Infused Sodium Chloride (Ns Inj) 800 mls @ 0 mls/hr IV.SIG .Q0M [facility] Last Infusion: 08/28/18 01:17 Dose: Infused Ceftriaxone Sodium 1,000 mg/ (Sodium Chloride) 100 mls @ 200 mls/hr IV.SIG Q24H [facility] Sodium Chloride (Ns Inj) 1,000 mls @ 100 mls/hr IV.CONT .Q10H [facility] Lactulose (Lactulose Liq) 30 ml PO DAILY PRN PRN Reason: SEVERE CONSITIPATION Metronidazole (Flagyl) 500 mg PO BID [facility] Stop: 09/04/18 08:59 Morphine Sulfate (Morphine Inj) 2 mg IV.PUSH Q4H PRN PRN Reason: PAIN 6-10 Ondansetron HCl (Zofran Inj) 4 mg IV.PUSH Q6H PRN PRN Reason: NAUSEA OR VOMITING Senna/Docusate Sodium (Milagros-Colace) 1 tab PO BID [facility] Sennosides (Senokot) 17.2 mg PO Q12H PRN PRN Reason: Moderate Constipation Sodium Chloride (Ns Flush) 2 ml IV.FLUSH PRN PRN PRN Reason: FLUSH AFTER USING IV ACCESS Allergies Allergy/AdvReac Type Severity Reaction Status Date / Time amoxicillin Allergy Intermediate hives Verified 08/27/18 22:10 penicillin G Allergy Unknown Hives Verified 08/27/18 22:10 Home Medications Medication Instructions Recorded Confirmed Type No Known Home Medications 08/27/18 08/27/18 History Exam Vital signs: Vital Signs 08/27/18 19:39 08/27/18 21:00 08/27/18 22:00 Temperature 100.5 F H Pulse Rate 114 H 66 Respiratory Rate 18 Blood Pressure 140/67 Pulse Oximetry 96 97 98 08/27/18 23:00 08/27/18 23:10 08/28/18 00:30 Temperature Pulse Rate 70 Respiratory Rate 18 16 18 Blood Pressure 101/52 L Pulse Oximetry 97 08/28/18 01:14 Temperature Pulse Rate 79 Respiratory Rate 16 Blood Pressure 98/54 L Pulse Oximetry 98 Intake & Output 08/27/18 08/27/18 08/28/18 06:59 18:59 06:59 Intake Total 1899 190 Balance [id number] Weight 67.585 kg Intake: IV 1900 / 1900 NS Inj 800 ML @ Wide Open IV. 1800 / 1800 SIG .Q0M [facility] Rx#:[id number] Rocephin Inj 1,000 MG In NS Inj 100 / 100 100 ML @ 200 mls/hr IV.SIG ONCE ONE Rx#:[id number] Narrative: PE: GENERAL: Pleasant young white female in no acute distress. SKIN: Focused skin assessment warm and dry. HEENT: PERRLA, EOMI. No scleral icterus or conjunctival pallor. No lid lag or facial droop. CARDIOVASCULAR: Regular rate and rhythm. No obvious murmurs to auscultation. No chest tenderness to palpation. RESPIRATORY: No obvious rhonchi or wheezing. Clear to auscultation. Breath sounds equal bilaterally. GASTROINTESTINAL: Abdomen soft, left flank tenderness to palpation, nondistended. BS normal. MUSCULOSKELETAL: Extremities without clubbing, cyanosis, or edema. No obvious deformities. NEUROLOGICAL: Awake, alert and oriented x4. No focal neurologic deficits. Moving both upper and lower extremities spontaneously. PSYCHIATRIC: Appropriate mood and affect. Insight and judgment normal. Results - Labs CBC & Chem 7: 08/27/18 22:35 08/27/18 22:35 Labs: Short CBC 08/27/18 Range/Units 22:35 WBC 20.3 H (4.0-11.0) th/mm3 Hgb 15.2 (11.6-15.3) gm/dL Hct 46.1 H (35.0-46.0) % Plt Count 243 (150-450) th/mm3 [facility] 08/27/18 22:35 Sodium 139 Potassium 3.0 L Chloride 101 Carbon Dioxide 26.7 BUN 7 Creatinine 1.11 H Calcium 8.6 Liver Function 11/01/18 Range/Units 22:35 Total Bilirubin 0.6 (0.2-1.0) mg/dL AST 17 (15-37) U/L ALT 20 (10-53) U/L Alkaline Phosphatase 80 (45-117) U/L Albumin 3.3 L (3.4-5.0) g/dL Urine 08/27/18 Range/Units 22:30 Urine Color Yellow (Yellw/Straw) Urine Clarity Clear (Clear) Urine pH 6.0 (5.0-8.5) Ur Specific Eleele 1.010 (1.002-1.035) Urine Protein Negative (Neg-Trace) mg/dL Urine Glucose (UA) Negative (Negative) mg/dL - Imaging Impressions Abdomen/Pelvis CT 08/27/18 22:06 CONCLUSION: Cholelithiasis with dilatation of common bile duct but no discrete stone identified. MRCP could be performed for further evaluation if clinically indicated. Chest X-Ray 08/27/18 22:06 CONCLUSION: Negative examination. Caprini VTE Risk Assessment Caprini VTE Risk Assessment: No/Low Risk (score <= 1) Caprini Risk Assessment Model: Point Value = 1 Point Value = 2 Point Value = 3 Point Value = 5 Age 41-60 Minor surgery BMI > 25 kg/m2 Swollen legs Varicose veins or History of unexplained or recurrent spontaneous Oral contraceptives or hormone replacement Sepsis (< 1 month) Serious lung disease, including pneumonia (< 1 month) Abnormal pulmonary function Acute myocardial infarction Congestive heart failure (< 1 month) History of inflammatory bowel disease Medical patient at bed rest Age 61-74 Arthroscopic surgery Major open surgery (> 45 min) Laparoscopic surgery (> 45 min) Malignancy Confined to bed (> 72 hours) Immobilizing plaster cast Central venous access Age >= 75 History of VTE Family history of VTE Factor V Leiden Prothrombin [id number] Lupus anticoagulant Anticardiolipin antibodies Elevated serum homocysteine Heparin-induced thrombocytopenia Other congenital or acquired thrombophilia Stroke (< 1 month) Elective arthroplasty Hip, pelvis, or leg fracture Acute spinal cord injury (< 1 month) Prophylaxis Regimen: Total Risk Factor Score Risk Level Prophylaxis Regimen 0-1 Low Early ambulation 2 Moderate Order ONE of the following: *Sequential Compression Device (SCD) *Heparin 5000 units SQ BID 3-4 Higher Order ONE of the following medications: *Heparin 5000 units SQ TID *Enoxaparin/Lovenox 40 mg SQ daily (WT < 150 kg, CrCl > 30 mL/min) *Enoxaparin/Lovenox 30 mg SQ daily (WT < 150 kg, CrCl > 10-29 mL/min) *Enoxaparin/Lovenox 30 mg SQ BID (WT < 150 kg, CrCl > 30 mL/min) AND/OR *Sequential Compression Device (SCD) 5 or more Highest Order ONE of the following medications: *Heparin 5000 units SQ TID (Preferred with Epidurals) *Enoxaparin/Lovenox 40 mg SQ daily (WT < 150 kg, CrCl > 30 mL/min) *Enoxaparin/Lovenox 30 mg SQ daily (WT < 150 kg, CrCl > 10-29 mL/min) *Enoxaparin/Lovenox 30 mg SQ BID (WT < 150 kg, CrCl > 30 mL/min) AND *Sequential Compression Device (SCD) Assessment and Plan - Assessment (1) Sepsis Code(s): A41.9 - Sepsis, unspecified organism Status: Acute (2) UTI (urinary tract infection) Code(s): N39.0 - Urinary tract infection, site not specified Status: Acute (3) Bacterial vaginosis Code(s): N76.0 - Acute vaginitis; B96.89 - Other specified bacterial agents as the cause of diseases classified elsewhere Status: Acute (4) Cholelithiasis Code(s): K80.20 - Calculus of gallbladder without cholecystitis without obstruction Status: Acute - Plan A/P: 1. Sepsis: Temp 100.5, HR 114, WBC 20.3, Source-UTI, S/p Blood cultures, continue IV Rocephin, follow up cultures, IVF for hydration. 2. UTI: U/a w/ UTI, follow up cultures, continue IVF, IV Rocephin, monitor I/O , 3. Cholelithiasis: CT Abd/Pelvis w/ cholelithiasis and CBD dilatation, images reviewed, will check MRCP-IUD in place +copper. Consult GI/Gen Sx as needed depending on results of imaging. 4. Bacterial Vaginosis: S/p Flagyl PO in ER, will continue w/ Flagyl 500mg bid x7 days. 5. DVT Prophylaxis: SCD/Teds 6. Social work for d/c planning as needed. 7. Case discussed w/ ER physician at length, labs/records/imaging reviewed by me. (1) Sepsis Qualifiers: Sepsis type: sepsis due to unspecified organism Qualified Code(s): A41.9 - Sepsis, unspecified organism (2) UTI (urinary tract infection) Qualifiers: Urinary tract infection type: site unspecified Hematuria presence: with hematuria Qualified Code(s): N39.0 - Urinary tract infection, site not specified; R31.9 - Hematuria, unspecified (4) Cholelithiasis Qualifiers: Cholelithiasis location: gallbladder Cholecystitis presence: without cholecystitis Biliary obstruction: without biliary obstruction Qualified Code( s): K80.20 - Calculus of gallbladder without cholecystitis without obstruction
[2018-08-28] MEDS: Morphine Inj 4 MG/ML Vial IV.PUSH PRN ×5 (03:19→20:29)
[2018-08-28] MEDS: Sod Chloride 0.9% Inj 1,000 ML IV.CONT SCH ×2 (03:19→11:38)
[2018-08-28 06:10] LABS: Baso % (Auto) 0.2 % (0.0-2.0); Eos # (Auto) 0.1 th/mm3 (0.0-0.4); Eos % (Auto) 0.8 % (0.0-4.0); Hematocrit 37.9 % (35.0-46.0); Hemoglobin 12.6 gm/dL (11.6-15.3); Lymph # (Auto) 2.1 th/mm3 (1.0-4.8); Lymph % (Auto) 13.6 % (9.0-44.0); Mean Corpuscular HGB Conc 33.2 % (32.0-36.0); Mean Corpuscular Hemoglobin 30.5 pg (27.0-34.0); Mean Corpuscular Volume 91.8 fL (80.0-100.0); Mean Platelet Volume 8.8 fL (7.0-11.0); Mono # (Auto) 1.3 th/mm3 (0.0-0.9); Mono % (Auto) 8.5 % (0.0-8.0); Neut # (Auto) 11.7 th/mm3 (1.8-7.7); Neut % (Auto) 76.9 % (16.0-70.0); Platelet Count 187 th/mm3 (150-450); Red Blood Count 4.13 mil/mm3 (4.00-5.30); White Blood Count 15.2 th/mm3 (4.0-11.0)
[2018-08-28 06:53] LABS: Albumin 2.5 g/dL (3.4-5.0); Calcium 7.4 mg/dL (8.5-10.1); Carbon Dioxide 25.7 meq/L (21.0-32.0); Potassium 3.3 meq/L (3.5-5.1); Total Protein 6.4 g/dL (6.4-8.2)
[2018-08-28] MEDS: Senna/Docusate Sodium 8.6/50 MG Tablet PO SCH ×2 (08:21→21:22)
[2018-08-28] MEDS ORDERED: Influenza (Quadrivalent) Vaccine 0.5 ML Syringe IM ONE (09:00)
[2018-08-28] MEDS ORDERED: metroNIDAZOLE 500 MG Tablet PO SCH (09:00)
--- NOTE | 2018-08-28 10:13 | MR ---
EXAM DATE: 08/28/2018 9:34 AM EDT AGE/SEX: 33 years / Female INDICATIONS: Abdominal pain. CLINICAL DATA: This is the patient's initial encounter. Patient reports that signs and symptoms have been present for 2 days and indicates a pain score of 5/10. MEDICAL/SURGICAL HISTORY: None. None. COMPARISON: [facility], CT ABDOMEN & PELVIS W CONTRAST, 08/27/2018. . TECHNIQUE: Multiplanar, multisequence images of the abdomen were obtained without contrast including dedicated cholangiographic images. FINDINGS: Liver: The liver measures 19.8 cm in length and demonstrates normal signal intensity without fat or i siena deposition appreciated. No focal lesion is seen on this noncontrast examination. Bile ducts: No significant intrahepatic biliary ductal dilatation is present. The common hepatic duct measures 13 mm, the proximal common bile duct measures 11 mm, in the distal common bile duct measure s 6 mm. There are 2 very small filling defects in the distal common bile duct measuring between 2 and 3 mm. Gallbladder: There are multiple stones within the gallbladder. Gallbladder is distended but there is no wall thickening or pericholecystic fluid. Spleen: Mildly enlarged measuring 13.7 cm in length. Pancreas: Within normal limits. Main pancreatic duct is normal. Adrenals: Within normal limits. Kidneys: There is no hydronephrosis or mass. There is left perinephric inflammation primarily inferio rly and extending inferior to the left kidney in the perinephric space. Prior CT demonstrated possibl e heterogeneous enhancement near the lower pole. Other: Aorta is nonaneurysmal. No lymphadenopathy is visualized. The remaining surrounding structur es demonstrate no acute abnormality. CONCLUSION: 1. There is extrahepatic bile duct dilatation, as above with likely 2 tiny stones in the distal comm on duct measuring between 2 and 3 mm. 2. Gallbladder is distended and contains multiple stones. However, the gallbladder demonstrates no w all thickening or inflammatory change. 3. There is significant left perinephric inflammation and inflammation extending in the inferior per inephric space. Prior CT demonstrated questionable abnormal enhancement the lower pole. These finding s raise suspicion for pyelonephritis. Suggest correlating with clinical examination and a urinalysis. Electronically signed by: Dl Gordon MD 08/28/2018 10:12 AM EDT
--- NOTE | 2018-08-28 12:22 | P.CONGI ---
History of Present Illness Consult date: 08/28/18 Consult reason: Abnormal MRCP Stones in the common bile duct with dilatation Chief complaint: Sepsis, UTI, Cholelithiasis, Dilated CBD History of Present Illness: This patient is a 33-year-old female with no significant medical history. Patient does report past history of IV drug use but states she has not done so in months. Patient presented to the emergency room at [facility] on 08/28/2018 with complaints of left flank pain and fever. Patient describes the pain as intermittent and sharp. At this time patient denies left flank pain but does endorse left-sided lower abdominal pain that radiates to her back. She describes this pain as sharp in nature states it is is constant and rates at 7 out of 10 at this time. Onset of pain was 3 days ago. Patient denies any nausea or vomiting associated with pain. Patient denies any aggravating factors but does report being in a position as an alleviating factor. CT abdomen and pelvis shows cholelithiasis, dilatation of common bile duct but no identified stone. Our service has been consulted to evaluate patient in reference to abnormal MRCP with stones found in the common bile duct with dilatation present. Patient states she drinks EtOH socially and does smoke 1 pack/day cigarettes. She denies any family history of gastrointestinal disorders. Denies ever having had EGD or colonoscopy and states that she has 2-3 bowel movements a week with occasional constipation. <Ursula Desai - Last Filed: 08/28/18 12:10> Review of Systems All other systems reviewed negative except as stated in HPI <Ursula Desai - Last Filed: 08/28/18 12:10> PMFSH - History History Provided By: Patient - Medical History Medical History: Medical History (Last Updated 08/27/18 @ 22:10 by Tam Campo Jr, RN) No pertinent past medical history - Surgical History Surgical History: Surgical History (Last Updated 08/27/18 @ 22:10 by Tam Campo Jr, RN) No pertinent past surgical history - Tobacco History Second Hand Smoke Exposure: No Tobacco Use In Past 30 Days: Yes Smoking Status: Current every day smoker Tobacco Type: Cigarettes - Alcohol History How Often Do You Have a Drink Containing Alcohol: Monthly or less - Substance Use History Substance History: No History of Abuse - Substance Use Type Opiates Status: Early Remission Route Used: Intravenously Reason for Use: Get High - Travel History Recent Travel in the [place] Within the Last 8 Weeks: No Recent Travel Out of the Country Within the Last 8 Weeks: No - Immunization History Tetanus Immunization: Unsure Hx Influenza Vaccine This Season: No <DesaiUrsula - Last Filed: 08/28/18 12:10> - Medical History Medical History: Medical History (Last Updated 08/27/18 @ 22:10 by Tam Campo Jr RN) No pertinent past medical history - Surgical History Surgical History: Surgical History (Last Updated 08/27/18 @ 22:10 by Tam Campo Jr, RN) No pertinent past surgical history <Juan Bass - Last Filed: 08/28/18 15:39> Medications and Allergies Active Medications: Active Medications Acetaminophen (Tylenol) 650 mg PO Q4H PRN PRN Reason: Temp > 100.4 Al Hydroxide/Mg Hydroxide (Milk Of Magnesia Liq) 30 ml PO Q12H PRN PRN Reason: Mild Constipation Bisacodyl (Dulcolax Supp) 10 mg RECTAL DAILY PRN PRN Reason: SEVERE CONSITIPATION Sodium Chloride (Ns Inj) 1,000 mls @ 0 mls/hr IV.SIG .Q0M [facility] Last Infusion: 08/27/18 23:51 Dose: Infused Sodium Chloride (Ns Inj) 800 mls @ 0 mls/hr IV.SIG .Q0M [facility] Last Infusion: 08/28/18 01:17 Dose: Infused Ceftriaxone Sodium 1,000 mg/ (Sodium Chloride) 100 mls @ 200 mls/hr IV.SIG Q24H [facility] Sodium Chloride (Ns Inj) 1,000 mls @ 100 mls/hr IV.CONT .Q10H [facility] Last Admin: 08/28/18 11:38 Dose: Not Given Lactulose (Lactulose Liq) 30 ml PO DAILY PRN PRN Reason: SEVERE CONSITIPATION Metronidazole (Flagyl) 500 mg PO BID [facility] Stop: 09/04/18 08:59 Last Admin: 08/28/18 08:21 Dose: 500 mg Morphine Sulfate (Morphine Inj) 2 mg IV.PUSH Q4H PRN PRN Reason: PAIN 6-10 Last Admin: 08/28/18 11:33 Dose: 2 mg Ondansetron HCl (Zofran Inj) 4 mg IV.PUSH Q6H PRN PRN Reason: NAUSEA OR VOMITING Senna/Docusate Sodium (Milagros-Colace) 1 tab PO BID [facility] Last Admin: 08/28/18 08:21 Dose: 1 tab Sennosides (Senokot) 17.2 mg PO Q12H PRN PRN Reason: Moderate Constipation Sodium Chloride (Ns Flush) 2 ml IV.FLUSH PRN PRN PRN Reason: FLUSH AFTER USING IV ACCESS <Ursula Desai - Last Filed: 08/28/18 12:10> Active Medications: Active Medications Acetaminophen (Tylenol) 650 mg PO Q4H PRN PRN Reason: Temp > 100.4 Al Hydroxide/Mg Hydroxide (Milk Of Magnesia Liq) 30 ml PO Q12H PRN PRN Reason: Mild Constipation Bisacodyl (Dulcolax Supp) 10 mg RECTAL DAILY PRN PRN Reason: SEVERE CONSITIPATION Sodium Chloride (Ns Inj) 1,000 mls @ 0 mls/hr IV.SIG .Q0M [facility] Last Infusion: 08/27/18 23:51 Dose: Infused Sodium Chloride (Ns Inj) 800 mls @ 0 mls/hr IV.SIG .Q0M [facility] Last Infusion: 08/28/18 01:17 Dose: Infused Ceftriaxone Sodium 1,000 mg/ (Sodium Chloride) 100 mls @ 200 mls/hr IV.SIG Q24H [facility] Sodium Chloride (Ns Inj) 1,000 mls @ 100 mls/hr IV.CONT .Q10H [facility] Last Admin: 08/28/18 11:38 Dose: Not Given Levofloxacin/Dextrose (Levaquin 750 Mg Premix Inj) 150 mls @ 100 mls/hr IV.SIG Q24H [facility] Lactulose (Lactulose Liq) 30 ml PO DAILY PRN PRN Reason: SEVERE CONSITIPATION Metronidazole (Flagyl) 500 mg PO Q8H [facility] Stop: 09/04/18 15:59 Morphine Sulfate (Morphine Inj) 2 mg IV.PUSH Q4H PRN PRN Reason: PAIN 6-10 Last Admin: 08/28/18 11:33 Dose: 2 mg Ondansetron HCl (Zofran Inj) 4 mg IV.PUSH Q6H PRN PRN Reason: NAUSEA OR VOMITING Senna/Docusate Sodium (Milagros-Colace) 1 tab PO BID [facility] Last Admin: 08/28/18 08:21 Dose: 1 tab Sennosides (Senokot) 17.2 mg PO Q12H PRN PRN Reason: Moderate Constipation Sodium Chloride (Ns Flush) 2 ml IV.FLUSH PRN PRN PRN Reason: FLUSH AFTER USING IV ACCESS <Juan Bass - Last Filed: 08/28/18 15:39> Allergies Allergy/AdvReac Type Severity Reaction Status Date / Time amoxicillin Allergy Intermediate hives Verified 08/27/18 22:10 penicillin G Allergy Unknown Hives Verified 08/27/18 22:10 Home Medications Medication Instructions Recorded Confirmed Type No Known Home Medications 08/27/18 08/27/18 History Exam Vital signs: Vital Signs 08/27/18 19:39 08/27/18 21:00 08/27/18 22:00 Temperature 100.5 F H Pulse Rate 114 H 66 Respiratory Rate 18 Blood Pressure 140/67 Pulse Oximetry 96 97 98 08/27/18 23:00 08/27/18 23:10 08/28/18 00:30 Temperature Pulse Rate 70 Respiratory Rate 18 16 18 Blood Pressure 101/52 L Pulse Oximetry 97 08/28/18 01:14 08/28/18 03:00 08/28/18 03:21 Temperature 98.5 F Pulse Rate 79 80 Respiratory Rate 16 18 18 Blood Pressure 98/54 L 103/57 L Pulse Oximetry 98 97 08/28/18 04:00 08/28/18 08:00 Temperature 100.0 F H Pulse Rate 81 88 Respiratory Rate 16 Blood Pressure 94/50 L Pulse Oximetry 96 Intake & Output 08/27/18 08/28/18 08/28/18 18:59 06:59 18:59 Intake Total 1900 / 1900 Balance 1900 / 1900 Weight 67.585 kg Intake: IV 1900 / 1900 NS Inj 800 ML @ Wide Open IV. 1800 / 1800 SIG .Q0M [facility] Rx#:[id number] Rocephin Inj 1,000 MG In NS Inj 100 / 100 100 ML @ 200 mls/hr IV.SIG ONCE ONE Rx#:[id number] Other: # Voids 1 Weight On Admission 67.585 kg - Constitutional no acute distress - Routine HEENT Exam Head: Present: normocephalic - Routine Neck Exam Present: supple - Routine Respiratory Exam Present: CTA bilaterally. Absent: accessory muscle use - Routine Cardiovascular Exam Present: RRR - Routine Abdominal Exam Present: soft, normoactive bowel sounds. Absent: tenderness, distended, guarding, firm - Routine Extremities Exam Present: full ROM. Absent: edema - Routine Skin Exam Present: dry, warm - Routine Neurological Exam Present: alert, oriented X3 <Ursula Desai - Last Filed: 08/28/18 12:10> Vital signs: Vital Signs 08/27/18 19:39 08/27/18 21:00 08/27/18 22:00 Temperature 100.5 F H Pulse Rate 114 H 66 Respiratory Rate 18 Blood Pressure 140/67 Pulse Oximetry 96 97 98 08/27/18 23:00 08/27/18 23:10 08/28/18 00:30 Temperature Pulse Rate 70 Respiratory Rate 18 16 18 Blood Pressure 101/52 L Pulse Oximetry 97 08/28/18 01:14 08/28/18 03:00 08/28/18 03:21 Temperature 98.5 F Pulse Rate 79 80 Respiratory Rate 16 18 18 Blood Pressure 98/54 L 103/57 L Pulse Oximetry 98 97 08/28/18 04:00 08/28/18 08:00 08/28/18 12:00 Temperature 100.0 F H 100.0 F H Pulse Rate 81 88 79 Respiratory Rate 16 14 Blood Pressure 94/50 L 96/50 L Pulse Oximetry 96 97 Intake & Output 08/27/18 08/28/18 08/28/18 18:59 06:59 18:59 Intake Total 1900 / 1900 Balance 1900 / 1900 Weight 67.585 kg Intake: IV 1900 / 1900 NS Inj 800 ML @ Wide Open IV. 1800 / 1800 SIG .Q0M [facility] Rx#:[id number] Rocephin Inj 1,000 MG In NS Inj 100 / 100 100 ML @ 200 mls/hr IV.SIG ONCE ONE Rx#:[id number] Other: # Voids 1 Weight On Admission 67.585 kg <Juan Bass - Last Filed: 08/28/18 15:39> Results - Labs CBC & Chem 7: 08/28/18 05:29 08/28/18 05:29 Labs: Laboratory Results - last 24 hr 08/27/18 08/27/18 08/27/18 22:30 22:35 22:35 WBC 20.3 H RBC 5.06 Hgb 15.2 Hct 46.1 H MCV 91.1 MCH 30.1 MCHC 33.0 RDW 14.0 Plt Count 243 MPV 9.1 Neut % (Auto) 80.8 H Lymph % (Auto) 11.2 [place] % (Auto) 7.5 Eos % (Auto) 0.1 Baso % (Auto) 0.4 Neut # (Auto) 16.4 H Lymph # (Auto) 2.3 [place] # (Auto) 1.5 H Eos # (Auto) 0.0 Baso # (Auto) 0.1 WBC Differential . Differential Comment Auto diff final PT 11.3 INR 1.1 APTT 34.1 H Sodium Potassium Chloride Carbon Dioxide Anion Gap BUN Creatinine Estimated GFR Random Glucose Lactic Acid Calcium Prot Corrected Calcium Total Bilirubin AST ALT Alkaline Phosphatase Total Protein Albumin Beta HCG, Qual Urine Color Yellow Urine Clarity Clear Urine pH 6.0 Ur Specific [place] 1.010 Urine Protein Negative Urine Glucose (UA) Negative Urine Ketones Negative Urine Occult Blood Small H Urine Nitrate Negative Urine Bilirubin Negative Urine Urobilinogen 2.0 H Ur Leukocyte Esterase Small H Urine RBC 1 Urine WBC 31 H Ur Squamous Epith Cells 3 Urine Bacteria Rare H Urine Mucus Few H Micro UA Comment Culture indicated Ur Microscopic Review Not Reportable Urine Culture Comments Culture indicated Clue Cells (Wet Prep) Trichomonas (Wet Prep) Yeast (Wet Prep) Chlam trachomat DNA PCR Monoscreen N.gonorrhoeae DNA (PCR) 08/27/18 08/27/18 08/27/18 22:35 22:35 22:40 WBC RBC Hgb Hct MCV MCH MCHC RDW Plt Count MPV Neut % (Auto) Lymph % (Auto) [place] % (Auto) Eos % (Auto) Baso % (Auto) Neut # (Auto) Lymph # (Auto) [place] # (Auto) Eos # (Auto) Baso # (Auto) WBC Differential Differential Comment PT INR APTT Sodium 139 Potassium 3.0 L Chloride 101 Carbon Dioxide 26.7 Anion Gap 11 BUN 7 Creatinine 1.11 H Estimated GFR 57 L Random Glucose 93 Lactic Acid 1.9 Calcium 8.6 Prot Corrected Calcium Total Bilirubin 0.6 AST 17 ALT 20 Alkaline Phosphatase 80 Total Protein 8.2 Albumin 3.3 L Beta HCG, Qual Urine Color Urine Clarity Urine pH Ur Specific [place] Urine Protein Urine Glucose (UA) Urine Ketones Urine Occult Blood Urine Nitrate Urine Bilirubin Urine Urobilinogen Ur Leukocyte Esterase Urine RBC Urine WBC Ur Squamous Epith Cells Urine Bacteria Urine Mucus Micro UA Comment Ur Microscopic Review Urine Culture Comments Clue Cells (Wet Prep) Trichomonas (Wet Prep) Yeast (Wet Prep) Chlam trachomat DNA PCR Monoscreen Neg N.gonorrhoeae DNA (PCR) 08/27/18 08/27/18 08/28/18 23:25 23:25 05:29 WBC 15.2 H RBC 4.13 Hgb 12.6 D Hct 37.9 MCV 91.8 MCH 30.5 MCHC 33.2 RDW 14.0 Plt Count 187 MPV 8.8 Neut % (Auto) 76.9 H Lymph % (Auto) 13.6 [place] % (Auto) 8.5 H Eos % (Auto) 0.8 Baso % (Auto) 0.2 Neut # (Auto) 11.7 H Lymph # (Auto) 2.1 [place] # (Auto) 1.3 H Eos # (Auto) 0.1 Baso # (Auto) 0.0 WBC Differential . Differential Comment Auto diff final PT INR APTT Sodium Potassium Chloride Carbon Dioxide Anion Gap BUN Creatinine Estimated GFR Random Glucose Lactic Acid Calcium Prot Corrected Calcium Total Bilirubin AST ALT Alkaline Phosphatase Total Protein Albumin Beta HCG, Qual Urine Color Urine Clarity Urine pH Ur Specific [place] Urine Protein Urine Glucose (UA) Urine Ketones Urine Occult Blood Urine Nitrate Urine Bilirubin Urine Urobilinogen Ur Leukocyte Esterase Urine RBC Urine WBC Ur Squamous Epith Cells Urine Bacteria Urine Mucus Micro UA Comment Ur Microscopic Review Urine Culture Comments Clue Cells (Wet Prep) Present H Trichomonas (Wet Prep) None seen Yeast (Wet Prep) None seen Chlam trachomat DNA PCR Not detected Monoscreen N.gonorrhoeae DNA (PCR) Not detected 08/28/18 08/28/18 05:29 05:29 WBC RBC Hgb Hct MCV MCH MCHC RDW Plt Count MPV Neut % (Auto) Lymph % (Auto) [place] % (Auto) Eos % (Auto) Baso % (Auto) Neut # (Auto) Lymph # (Auto) [place] # (Auto) Eos # (Auto) Baso # (Auto) WBC Differential Differential Comment PT INR APTT Sodium 140 Potassium 3.3 L Chloride 107 Carbon Dioxide 25.7 Anion Gap 7 BUN 7 Creatinine 0.82 Estimated GFR 81 L Random Glucose 80 Lactic Acid Calcium 7.4 L* D Prot Corrected Calcium 7.8 L Total Bilirubin 0.4 AST 12 L ALT 16 Alkaline Phosphatase 63 Total Protein 6.4 D Albumin 2.5 L D Beta HCG, Qual Less than 1.0 Urine Color Urine Clarity Urine pH Ur Specific [place] Urine Protein Urine Glucose (UA) Urine Ketones Urine Occult Blood Urine Nitrate Urine Bilirubin Urine Urobilinogen Ur Leukocyte Esterase Urine RBC Urine WBC Ur Squamous Epith Cells Urine Bacteria Urine Mucus Micro UA Comment Ur Microscopic Review Urine Culture Comments Clue Cells (Wet Prep) Trichomonas (Wet Prep) Yeast (Wet Prep) Chlam trachomat DNA PCR Monoscreen N.gonorrhoeae DNA (PCR) - Imaging Impressions Abdomen/Pelvis CT 08/27/18 22:06 CONCLUSION: Cholelithiasis with dilatation of common bile duct but no discrete stone identified. MRCP could be performed for further evaluation if clinically indicated. Chest X-Ray 08/27/18 22:06 CONCLUSION: Negative examination. Cholangiopancreatography MRI 08/28/18 00:00 CONCLUSION: 1. There is extrahepatic bile duct dilatation, as above with likely 2 tiny stones in the distal common duct measuring between 2 and 3 mm. 2. Gallbladder is distended and contains multiple stones. However, the gallbladder demonstrates no wall thickening or inflammatory change. 3. There is significant left perinephric inflammation and inflammation extending in the inferior perinephric space. Prior CT demonstrated questionable abnormal enhancement the lower pole. These findings raise suspicion for pyelonephritis. Suggest correlating with clinical examination and a urinalysis. <Ursula Desai - Last Filed: 08/28/18 12:10> - Labs CBC & Chem 7: 08/28/18 05:29 08/28/18 05:29 Labs: Laboratory Results - last 24 hr 08/27/18 08/27/18 08/27/18 22:30 22:35 22:35 WBC 20.3 H RBC 5.06 Hgb 15.2 Hct 46.1 H MCV 91.1 MCH 30.1 MCHC 33.0 RDW 14.0 Plt Count 243 MPV 9.1 Neut % (Auto) 80.8 H Lymph % (Auto) 11.2 [place] % (Auto) 7.5 Eos % (Auto) 0.1 Baso % (Auto) 0.4 Neut # (Auto) 16.4 H Lymph # (Auto) 2.3 [place] # (Auto) 1.5 H Eos # (Auto) 0.0 Baso # (Auto) 0.1 WBC Differential . Differential Comment Auto diff final PT 11.3 INR 1.1 APTT 34.1 H Sodium Potassium Chloride Carbon Dioxide Anion Gap BUN Creatinine Estimated GFR Random Glucose Lactic Acid Calcium Prot Corrected Calcium Total Bilirubin AST ALT Alkaline Phosphatase Total Protein Albumin Beta HCG, Qual Urine Color Yellow Urine Clarity Clear Urine pH 6.0 Ur Specific [place] 1.010 Urine Protein Negative Urine Glucose (UA) Negative Urine Ketones Negative Urine Occult Blood Small H Urine Nitrate Negative Urine Bilirubin Negative Urine Urobilinogen 2.0 H Ur Leukocyte Esterase Small H Urine RBC 1 Urine WBC 31 H Ur Squamous Epith Cells 3 Urine Bacteria Rare H Urine Mucus Few H Micro UA Comment Culture indicated Ur Microscopic Review Not Reportable Urine Culture Comments Culture indicated Clue Cells (Wet Prep) Trichomonas (Wet Prep) Yeast (Wet Prep) Chlam trachomat DNA PCR Monoscreen N.gonorrhoeae DNA (PCR) 08/27/18 08/27/18 08/27/18 22:35 22:35 22:40 WBC RBC Hgb Hct MCV MCH MCHC RDW Plt Count MPV Neut % (Auto) Lymph % (Auto) [place] % (Auto) Eos % (Auto) Baso % (Auto) Neut # (Auto) Lymph # (Auto) [place] # (Auto) Eos # (Auto) Baso # (Auto) WBC Differential Differential Comment PT INR APTT Sodium 139 Potassium 3.0 L Chloride 101 Carbon Dioxide 26.7 Anion Gap 11 BUN 7 Creatinine 1.11 H Estimated GFR 57 L Random Glucose 93 Lactic Acid 1.9 Calcium 8.6 Prot Corrected Calcium Total Bilirubin 0.6 AST 17 ALT 20 Alkaline Phosphatase 80 Total Protein 8.2 Albumin 3.3 L Beta HCG, Qual Urine Color Urine Clarity Urine pH Ur Specific [place] Urine Protein Urine Glucose (UA) Urine Ketones Urine Occult Blood Urine Nitrate Urine Bilirubin Urine Urobilinogen Ur Leukocyte Esterase Urine RBC Urine WBC Ur Squamous Epith Cells Urine Bacteria Urine Mucus Micro UA Comment Ur Microscopic Review Urine Culture Comments Clue Cells (Wet Prep) Trichomonas (Wet Prep) Yeast (Wet Prep) Chlam trachomat DNA PCR Monoscreen Neg N.gonorrhoeae DNA (PCR) 08/27/18 08/27/18 08/28/18 23:25 23:25 05:29 WBC 15.2 H RBC 4.13 Hgb 12.6 D Hct 37.9 MCV 91.8 MCH 30.5 MCHC 33.2 RDW 14.0 Plt Count 187 MPV 8.8 Neut % (Auto) 76.9 H Lymph % (Auto) 13.6 [place] % (Auto) 8.5 H Eos % (Auto) 0.8 Baso % (Auto) 0.2 Neut # (Auto) 11.7 H Lymph # (Auto) 2.1 [place] # (Auto) 1.3 H Eos # (Auto) 0.1 Baso # (Auto) 0.0 WBC Differential . Differential Comment Auto diff final PT INR APTT Sodium Potassium Chloride Carbon Dioxide Anion Gap BUN Creatinine Estimated GFR Random Glucose Lactic Acid Calcium Prot Corrected Calcium Total Bilirubin AST ALT Alkaline Phosphatase Total Protein Albumin Beta HCG, Qual Urine Color Urine Clarity Urine pH Ur Specific [place] Urine Protein Urine Glucose (UA) Urine Ketones Urine Occult Blood Urine Nitrate Urine Bilirubin Urine Urobilinogen Ur Leukocyte Esterase Urine RBC Urine WBC Ur Squamous Epith Cells Urine Bacteria Urine Mucus Micro UA Comment Ur Microscopic Review Urine Culture Comments Clue Cells (Wet Prep) Present H Trichomonas (Wet Prep) None seen Yeast (Wet Prep) None seen Chlam trachomat DNA PCR Not detected Monoscreen N.gonorrhoeae DNA (PCR) Not detected 08/28/18 08/28/18 05:29 05:29 WBC RBC Hgb Hct MCV MCH MCHC RDW Plt Count MPV Neut % (Auto) Lymph % (Auto) [place] % (Auto) Eos % (Auto) Baso % (Auto) Neut # (Auto) Lymph # (Auto) [place] # (Auto) Eos # (Auto) Baso # (Auto) WBC Differential Differential Comment PT INR APTT Sodium 140 Potassium 3.3 L Chloride 107 Carbon Dioxide 25.7 Anion Gap 7 BUN 7 Creatinine 0.82 Estimated GFR 81 L Random Glucose 80 Lactic Acid Calcium 7.4 L* D Prot Corrected Calcium 7.8 L Total Bilirubin 0.4 AST 12 L ALT 16 Alkaline Phosphatase 63 Total Protein 6.4 D Albumin 2.5 L D Beta HCG, Qual Less than 1.0 Urine Color Urine Clarity Urine pH Ur Specific [place] Urine Protein Urine Glucose (UA) Urine Ketones Urine Occult Blood Urine Nitrate Urine Bilirubin Urine Urobilinogen Ur Leukocyte Esterase Urine RBC Urine WBC Ur Squamous Epith Cells Urine Bacteria Urine Mucus Micro UA Comment Ur Microscopic Review Urine Culture Comments Clue Cells (Wet Prep) Trichomonas (Wet Prep) Yeast (Wet Prep) Chlam trachomat DNA PCR Monoscreen N.gonorrhoeae DNA (PCR) - Imaging Impressions Abdomen/Pelvis CT 08/27/18 22:06 CONCLUSION: Cholelithiasis with dilatation of common bile duct but no discrete stone identified. MRCP could be performed for further evaluation if clinically indicated. Chest X-Ray 08/27/18 22:06 CONCLUSION: Negative examination. Cholangiopancreatography MRI 08/28/18 00:00 CONCLUSION: 1. There is extrahepatic bile duct dilatation, as above with likely 2 tiny stones in the distal common duct measuring between 2 and 3 mm. 2. Gallbladder is distended and contains multiple stones. However, the gallbladder demonstrates no wall thickening or inflammatory change. 3. There is significant left perinephric inflammation and inflammation extending in the inferior perinephric space. Prior CT demonstrated questionable abnormal enhancement the lower pole. These findings raise suspicion for pyelonephritis. Suggest correlating with clinical examination and a urinalysis. <Juan Bass - Last Filed: 08/28/18 15:39> Assessment and Plan (1) Cholelithiasis Status: Acute Code(s): K80.20 - Calculus of gallbladder without cholecystitis without obstruction (2) Common bile duct dilatation Status: Acute Code(s): K83.8 - Other specified diseases of biliary tract - Plan This patient is a 33-year-old female with no significant medical history. Patient does report past history of IV drug use but states she has not done so in months. Patient presented to the emergency room at [facility] on 08/28/2018 with complaints of left flank pain and fever. Patient describes the pain as intermittent and sharp. At this time patient denies left flank pain but does endorse left-sided lower abdominal pain that radiates to her back. She describes this pain as sharp in nature states it is is constant and rates at 7 out of 10 at this time. Onset of pain was 3 days ago. Patient denies any nausea or vomiting associated with pain. Patient denies any aggravating factors but does report being in a position as an alleviating factor. CT abdomen and pelvis shows cholelithiasis, dilatation of common bile duct but no identified stone. Our service has been consulted to evaluate patient in reference to abnormal MRCP with stones found in the common bile duct with dilatation present. Patient states she drinks EtOH socially and does smoke 1 pack/day cigarettes. She denies any family history of gastrointestinal disorders. Denies ever having had EGD or colonoscopy and states that she has 2-3 bowel movements a week with occasional constipation Choledocholithiasis 08/28/2018 MRCP-- 1. There is extrahepatic bile duct dilatation, as above with likely 2 tiny stones in the distal common duct measuring between 2 and 3 mm. 2. Gallbladder is distended and contains multiple stones. However, the gallbladder demonstrates no wall thickening or inflammatory change. 3. There is significant left perinephric inflammation and inflammation extending in the inferior perinephric space. Prior CT demonstrated questionable abnormal enhancement the lower pole. These findings raise suspicion for pyelonephritis. Suggest correlating with clinical examination and a urinalysis. WBC 15.2 hemoglobin 12.6 hematocrit 37.9 total bilirubin 0.4 AST 12 ALT 16 alk phos 63 Plan -N.p.o. -ERCP today -IV hydration -Monitor labs -Noted general surgery consult for gallbladder distention -Analgesics/antiemetics as per attending -Supportive care -Further recommendations to follow based on patient status and findings This patient has been seen by myself and Dr. Bass and this note is written on his behalf - Attending Attestation Dr. Bass <Ursula Desai - Last Filed: 08/28/18 12:10> (1) Cholelithiasis Status: Acute Code(s): K80.20 - Calculus of gallbladder without cholecystitis without obstruction (2) Common bile duct dilatation Status: Acute Code(s): K83.8 - Other specified diseases of biliary tract - Plan Patient seen and examined Agree with above Monitor labs Continue with current supportive care The plan is to proceed with an ERCP further recommendations she will follow <Juan Bass - Last Filed: 08/28/18 15:39> <Ursula Desai - Last Filed: 08/28/18 12:10> (1) Cholelithiasis Qualifiers: Cholelithiasis location: gallbladder Cholecystitis presence: without cholecystitis Biliary obstruction: without biliary obstruction Qualified Code( s): K80.20 - Calculus of gallbladder without cholecystitis without obstruction <Juan Bass - Last Filed: 08/28/18 15:39> (1) Cholelithiasis Qualifiers: Cholelithiasis location: gallbladder Cholecystitis presence: without cholecystitis Biliary obstruction: without biliary obstruction Qualified Code( s): K80.20 - Calculus of gallbladder without cholecystitis without obstruction
--- NOTE | 2018-08-28 12:51 | P.PNADD ---
Addendum to Inpatient Note Additional information: Patient seen/examined. Came in with abdominal pain, fever, chills. Imaging studies indicate CBD dilatation, acute cholecystitis. We consulted GI and GS. GI will likely do ERCP today. Pt is NPO currently. She was started on Flagyl due to BV. We will change Flagyl to 500mg Q8 and add Levaquin 750mg Qday. Levaquin + Flagyl will give Gram negative and anaerobic coverage. Patient is allergic to PCN.
[2018-08-28] MEDS ORDERED: Sincalide Inj 5 MCG Vial ONE (16:15)
[2018-08-28] MEDS ORDERED: Sincalide Inj 5 MCG Vial IM ONE (16:32)
--- NOTE | 2018-08-28 16:54 | P.PCN ---
Date of procedure: 08/28/18 Pre-op diagnosis: Choledocholithiasis as evidenced on MRCP Procedure: PROCEDURE PERFORMED [] PROCEDURE: The procedure, risks and benefits were discussed with Patient/POA and informed consent was obtained. Anesthesia sedated Patient with Diprivan. Patient was placed in prone position. ERCP: Patient was placed in a prone position. The Pentax videoscope was introduced through the oropharynx and advanced to the second portion of the duodenum where the ampula was identified. FINDINGS: The ampulla appeared to be unremarkable and within normal limits initial cannulation was that of the pancreatic duct several cannulations were made of the pancreatic duct and a such a 5 Georgian 3 cm pancreatic stent was placed to reduce risk of pancreatitis and indomethacin 100 mg suppositories were given needle-knife was performed in order to allow for bile duct cannulation again several attempts were made with no cannulation then Kinevac was given but no secretions were noted finally prior to giving up I was able to obtain cannulation of the common bile duct which appeared to be significantly dilated to about 15 mm with a gradual tapering towards the ampulla 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 a generous sphincterotomy was performed then using the 15 mm balloon we were able to perform 2 sweeps with no stones noted to be coming out and no filling defects were seen in the bile duct and subsequently the procedure was terminated ESTIMATED BLOOD LOSS: None SPECIMENS REMOVED: None COMPLICATIONS: None 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
--- NOTE | 2018-08-28 17:04 | FL ---
EXAM DATE: 08/28/2018 4:57 PM EDT AGE/SEX: 33 years / Female INDICATIONS: ERCP. CLINICAL DATA: This is the patient's initial encounter. Patient reports that signs and symptoms have been present for 1 day and indicates a pain score of Nonresponsive. MEDICAL/SURGICAL HISTORY: None. None. COMPARISON: [facility] – [place], MRCP W/O CONTRAST, 08/28/2018. . FINDINGS: An ERCP was performed by the ordering physician. The images demonstrate cannulation of the common bi le duct and opacification of the central intrahepatic and extrahepatic bile ducts. The common bile du ct is dilated with smooth tapering to the ampulla. One of the images demonstrates filling defect in t he midportion, likely an air bubble given the size. CONCLUSION: Dilated common bile duct. Please refer to endoscopist report for further details. Electronically signed by: Dl Gordon MD 08/28/2018 5:03 PM EDT
[2018-08-28] MEDS: metroNIDAZOLE 500 MG Tablet PO SCH (17:50)
--- NOTE | 2018-08-28 18:52 | ECG ---
Date Performed: 08/28/2018 Time Performed: 02:18:01 PTAGE: 33 years EKG: Sinus rhythm WITH FIRST DEGREE AV BLOCK ABNORMAL ECG NO PREVIOUS TRACING DOCTOR: Reynold Montoya Interpretating Date/Time 08/28/2018 18:51:18
[2018-08-29] MEDS: metroNIDAZOLE 500 MG Tablet PO SCH ×4 (00:25→23:00)
[2018-08-29] MEDS: Sod Chloride 0.9% Inj 1,000 ML IV.CONT SCH ×3 (00:27→11:39)
[2018-08-29] MEDS: Morphine Inj 4 MG/ML Vial IV.PUSH PRN ×4 (04:12→22:55)
[2018-08-29] MEDS ORDERED: Bupivacaine/Epinephrine PF Inj 0.5% 30 ML Vial ONE (07:12)
[2018-08-29] MEDS: Senna/Docusate Sodium 8.6/50 MG Tablet PO SCH ×2 (08:20→20:56)
[2018-08-29] MEDS ORDERED: Ketamine Inj 50 MG/5 ML Syringe IV.PUSH ONE (08:37)
[2018-08-29] MEDS ORDERED: HYDROmorphone PF Inj 1 MG/ML Ampul ONE (08:38)
[2018-08-29] MEDS ORDERED: Iohexol Inj 350 MG/ML 100 ML Bottle (for RAD Diag) IVCONTRAST ONE (08:57)
--- NOTE | 2018-08-29 09:50 | XR ---
EXAM DATE: 08/29/2018 9:44 AM EDT AGE/SEX: 33 years / Female INDICATIONS: Lap matti. CLINICAL DATA: This is the patient's initial encounter. Patient reports that signs and symptoms have been present for 1 day and indicates a pain score of Nonresponsive. MEDICAL/SURGICAL HISTORY: None. . ERCP. [place] [facility] [place]. . FINDINGS: The common duct and intrahepatic biliary ducts are opacified. Common duct appears dilated. It is agai n tapered distally. Possible faint filling defects in the duct distally on one of the views. CONCLUSI ON: Dilated common duct again seen. Please refer to surgical report for further details. Electronically signed by: Damion Reese MD 08/29/2018 9:48 AM EDT
[2018-08-29] MEDS ORDERED: fentaNYL Citrate Inj 100 MCG/2 ML Ampul ONE (10:08)
[2018-08-29] MEDS ORDERED: *morphine SULFATE 4 MG/ML PERIprocedure ONLY ONE ×2 (10:15→10:39)
--- NOTE | 2018-08-29 10:25 | P.OP ---
- Preoperative Diagnosis (1) Choledocholithiasis with acute cholecystitis with obstruction (2) Cholelithiasis (3) Common bile duct dilatation - Postoperative Diagnosis (1) Choledocholithiasis with acute cholecystitis with obstruction Date of procedure: 08/29/18 Procedure: Laparoscopic cholecystectomy with intraoperative cholangiogram with intraoperative use of fluoroscopy Surgeon: Shin Joy MD Drywall Hanger Helper: Shoshana Christensen CFA Estimated blood loss (mL): 50 IV fluids (mL): 1,100 Pathology: other (Gallbladder and contents to pathology) Operation and Findings: Patient was taken to the operating room and placed on the operating table in the supine position. After an adequate level of general endotracheal anesthesia was achieved the abdomen was prepped and draped in the usual fashion. Time-out was taken, confirming the correct patient, site, and procedure to be performed. Skin and subcutaneous tissue was infiltrated with local anesthetic and incision made in the umbilicus. The peritoneal cavity was directly visualized. A 12 mm balloon trocar was inserted and the balloon inflated. The abdomen was insufflated. The patient was placed in reverse Trendelenburg position. Three 5 mm trocars were then placed, with the first to the right of the falciform ligament and the second and third in the right subcostal region. All entered the abdominal cavity under direct vision uneventfully. The fundus of the gallbladder was grasped and retracted upward. Omental adhesions were taken down off of the gallbladder with both electrocautery and blunt dissection. The infundibulum was retracted laterally. The cystic artery was circumferentially dissected, doubly clipped proximally, singly clipped on the gallbladder side and divided. The cystic duct was circumferentially dissected as well and a single clip placed on the gallbladder side. A cystic ductotomy was made and an Jewell cholangiocatheter brought in via separate stab incision. A cholangiocatheter was inserted and secured in the to the cystic duct with an Endo Clip. Cholangiogram was obtained as the patient had ERCP the previous day and as there was some difficulty with cannulating the duct, the undersigned wanted to confirm that all filling defects were cleared. Real-time cholangio-gram was obtained under fluoroscopy; however, while the contrast filled the common bile duct, common hepatic duct, right and left hepatic ducts and some of the right hepatic radicles, no contrast flowed into the duodenum. 1 mg of glucagon was given IV and after waiting 3-5 minutes, repeat cholangiogram failed to demonstrate any flow of contrast into the duodenum. This was felt to be due to swelling at the papilla and thus no further manipulations were made. The cholangiocatheter was removed and the cystic duct divided. The cystic duct was secured with a 0 PDS Endoloop and 3 endoclips to help minimize the chance of any bile leakage while the papillary swelling resolved. The gallbladder was then dissected off of the liver bed with electrodissection. The gallbladder was placed into an Endo Catch device and removed via the umbilical port while observing via the upper 5 mm trocar site. The liver bed was made hemostatic with electrocautery. The cystic artery stump and cystic duct stump are seen to be clean and dry. All irrigation was aspirated from the abdominal cavity. Insufflation was discontinued and the upper abdominal trocars removed under direct vision. During desufflation, no bleeding was noted from the upper abdominal trocar sites. The laparoscope and umbilical port were then removed. The fascia was closed in the umbilicus with two figure- of-eight 0 Vicryl sutures and a single simple interrupted 0 Vicryl suture. The remaining local anesthetic was injected into each of the trocar sites. The skin was closed at each of the trocar sites with 4-0 Vicryl in an interrupted buried fashion. All sites were dressed with Steri-Strips. The patient was extubated and taken back to the recovery room in stable condition. Sponge and needle counts were reported to be correct. Patient tolerated the procedure extremely well.
[2018-08-29] MEDS: Potassium Chlor 10 mEq Premix 10 MEQ/100 ML PIGGYBACK IV.SIG SCH ×8 (10:48→18:28)
--- NOTE | 2018-08-29 12:33 | P.PNGI ---
Subjective Interval history: Pt is resting in bed, had cholecystectomy earlier today, having some mild abd tenderness. <Alonso Sanchez - Last Filed: 08/29/18 12:23> Physical Exam Vital signs: Vital Signs 08/28/18 16:45 08/28/18 20:15 08/29/18 00:00 Temperature 97.0 F L 98.3 F 98.2 F Pulse Rate 68 45 L Respiratory Rate 22 20 20 Blood Pressure 111/70 118/68 102/67 Pulse Oximetry 98 99 99 08/29/18 04:00 08/29/18 07:00 08/29/18 08:00 Temperature 98.6 F 99.6 F Pulse Rate 67 42 L 74 Respiratory Rate 20 20 17 Blood Pressure 126/74 116/73 Pulse Oximetry 98 94 L 08/29/18 10:00 08/29/18 10:15 08/29/18 10:30 Temperature 99.6 F Pulse Rate 90 80 70 Respiratory Rate 17 20 13 Blood Pressure 106/57 L 105/61 106/61 Pulse Oximetry 94 L 92 L 97 08/29/18 10:41 08/29/18 10:45 08/29/18 11:00 Temperature 99.1 F Pulse Rate 68 69 Respiratory Rate 15 14 14 Blood Pressure 106/59 L 104/58 L Pulse Oximetry 97 97 Intake & Output 08/28/18 08/29/18 08/29/18 18:59 06:59 18:59 Intake Total 1200 / 1200 1900 / 1900 2300 / 2300 Output Total 400 / 400 50 / 50 Balance 1200 / 1200 1500 / 1500 2250 / 2250 Weight 73.4 kg Intake: IV 200 / 200 1900 / 1900 1200 / 1200 NS Inj 1,000 ML @ 150 mls/hr IV 200 / 200 1800 / 1800 1000 / 1000 .CONT .Q6H40M [facility] Rx#:[id number] KCl 10 mEq Premix Inj 10 meq In 100 / 100 100 ml @ 100 mls/hr IV.SIG Q1H [facility] Rx#:[id number] Rocephin Inj 2,000 MG In NS Inj 100 / 100 100 ML @ 200 mls/hr IV.SIG Q24H [facility] Rx#:[id number] Flagyl 500 MG Inj 100 ML @ 0 100 / 100 mls/hr IV.SIG .STK-MED ONE Rx#: [id number] Oral 0 / 0 Anesthesia Amount 1000 / 1000 1100 / 1100 Output: Emesis 400 / 400 Estimated Blood Loss 50 / 50 Other: # Voids 7 3 Date of Last Bowel Movement 08/28/18 08/28/18 # Emeses 1 Narrative: GENERAL: Pleasant young white female in no acute distress. SKIN: warm and dry. HEENT: PERRLA CARDIOVASCULAR: Regular rate and rhythm. RESPIRATORY: No obvious rhonchi or wheezing. Clear to auscultation. Breath sounds equal bilaterally. GASTROINTESTINAL: Abdomen soft, mild tenderness to palpation, nondistended. BS normal. MUSCULOSKELETAL: Extremities without clubbing, cyanosis, or edema. No obvious deformities. NEUROLOGICAL: Awake, alert and oriented x4. PSYCHIATRIC: Appropriate mood and affect. Insight and judgment normal. <Alonso Sanchez - Last Filed: 08/29/18 12:23> Vital signs: Vital Signs 08/28/18 16:45 08/28/18 20:15 08/29/18 00:00 Temperature 97.0 F L 98.3 F 98.2 F Pulse Rate 68 45 L Respiratory Rate 22 20 20 Blood Pressure 111/70 118/68 102/67 Pulse Oximetry 98 99 99 08/29/18 04:00 08/29/18 07:00 08/29/18 08:00 Temperature 98.6 F 99.6 F Pulse Rate 67 42 L 74 Respiratory Rate 20 20 17 Blood Pressure 126/74 116/73 Pulse Oximetry 98 94 L 08/29/18 10:00 08/29/18 10:15 08/29/18 10:30 Temperature 99.6 F Pulse Rate 90 80 70 Respiratory Rate 17 20 13 Blood Pressure 106/57 L 105/61 106/61 Pulse Oximetry 94 L 92 L 97 08/29/18 10:41 08/29/18 10:45 08/29/18 11:00 Temperature 99.1 F Pulse Rate 68 69 Respiratory Rate 15 14 14 Blood Pressure 106/59 L 104/58 L Pulse Oximetry 97 97 Intake & Output 08/28/18 08/29/18 08/29/18 18:59 06:59 18:59 Intake Total 1200 / 1200 1900 / 1900 2400 / 2400 Output Total 400 / 400 50 / 50 Balance 1200 / 1200 1500 / 1500 2350 / 2350 Weight 73.4 kg Intake: IV 200 / 200 1900 / 1900 1300 / 1300 NS Inj 1,000 ML @ 150 mls/hr IV 200 / 200 1800 / 1800 1000 / 1000 .CONT .Q6H40M [facility] Rx#:[id number] KCl 10 mEq Premix Inj 10 meq In 200 / 200 100 ml @ 100 mls/hr IV.SIG Q1H [facility] Rx#:[id number] Rocephin Inj 2,000 MG In NS Inj 100 / 100 100 ML @ 200 mls/hr IV.SIG Q24H [facility] Rx#:[id number] Flagyl 500 MG Inj 100 ML @ 0 100 / 100 mls/hr IV.SIG .STK-MED ONE Rx#: [id number] Oral 0 / 0 Anesthesia Amount 1000 / 1000 1100 / 1100 Output: Emesis 400 / 400 Estimated Blood Loss 50 / 50 Other: # Voids 7 3 Date of Last Bowel Movement 08/28/18 08/28/18 # Emeses 1 <Cassandra Stahl - Last Filed: 08/29/18 14:10> Results - Labs CBC & Chem 7: 08/28/18 05:29 08/28/18 05:29 Laboratory Results - last 24 hr 08/27/18 22:30 Urine Color Yellow Urine Clarity Clear Urine pH 6.0 Ur Specific Drummond 1.010 Urine Protein Negative Urine Glucose (UA) Negative Urine Ketones Negative Urine Occult Blood Small H Urine Nitrate Negative Urine Bilirubin Negative Urine Urobilinogen 2.0 H Ur Leukocyte Esterase Small H Urine RBC 1 Urine WBC 31 H Ur Squamous Epith Cells 3 Urine Bacteria Rare H Urine Mucus Few H Micro UA Comment Culture indicated Urine Culture Comments Culture indicated Microbiology 08/27/18 22:30 Clean Catch Urine Urine Culture - Final Escherichia coli 08/27/18 22:35 Blood - Peripheral Aerobic Blood Culture - Preliminary No growth in 2 days 08/27/18 22:35 Blood - Peripheral Anaerobic Blood Culture - Preliminary No growth in 2 days 08/27/18 22:40 Blood - Peripheral Aerobic Blood Culture - Preliminary No growth in 2 days 08/27/18 22:40 Blood - Peripheral Anaerobic Blood Culture - Preliminary No growth in 2 days - Imaging Impressions GI Procedure 08/28/18 00:00 CONCLUSION: Dilated common bile duct. Please refer to endoscopist report for further details. Cholangiogram,Operative 08/29/18 00:00 The common duct and intrahepatic biliary ducts are opacified. Common duct appears dilated. It is again tapered distally. Possible faint filling defects in the duct distally on one of the views. CONCLUSION: Dilated common duct again seen. Please refer to surgical report for further details. <Alonso Sanchez - Last Filed: 08/29/18 12:23> - Labs CBC & Chem 7: 08/29/18 12:13 08/29/18 12:13 Laboratory Results - last 24 hr 08/29/18 08/29/18 12:13 12:13 WBC 18.8 H RBC 3.92 L Hgb 12.3 Hct 35.3 MCV 90.1 MCH 31.3 MCHC 34.7 RDW 13.9 Plt Count 201 MPV 8.9 Sodium 139 Potassium 3.8 Chloride 108 H Carbon Dioxide 24.0 Anion Gap 7 BUN 10 Creatinine 0.60 Estimated GFR Greater than 89 Random Glucose 148 H Calcium 7.6 L Total Bilirubin 2.8 H AST 112 H ALT 50 Alkaline Phosphatase 212 H Total Protein 6.1 L Albumin 2.3 L Microbiology 08/27/18 22:30 Clean Catch Urine Urine Culture - Final Escherichia coli 08/27/18 22:35 Blood - Peripheral Aerobic Blood Culture - Preliminary No growth in 2 days 08/27/18 22:35 Blood - Peripheral Anaerobic Blood Culture - Preliminary No growth in 2 days 08/27/18 22:40 Blood - Peripheral Aerobic Blood Culture - Preliminary No growth in 2 days 08/27/18 22:40 Blood - Peripheral Anaerobic Blood Culture - Preliminary No growth in 2 days - Imaging Impressions GI Procedure 08/28/18 00:00 CONCLUSION: Dilated common bile duct. Please refer to endoscopist report for further details. Cholangiogram,Operative 08/29/18 00:00 The common duct and intrahepatic biliary ducts are opacified. Common duct appears dilated. It is again tapered distally. Possible faint filling defects in the duct distally on one of the views. CONCLUSION: Dilated common duct again seen. Please refer to surgical report for further details. 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 There is extrahepatic bile duct dilatation, as above with likely 2 tiny stones in the distal common duct measuring between 2 and 3 mm. 2. Gallbladder is distended and contains multiple stones. However, the gallbladder demonstrates no wall thickening or inflammatory change. 3. There is significant left perinephric inflammation and inflammation extending in the inferior perinephric space. Prior CT demonstrated questionable abnormal enhancement the lower pole. These findings raise suspicion for pyelonephritis. Suggest correlating with clinical examination and a urinalysis. CT abdomen and pelvis shows cholelithiasis, dilatation of common bile duct but no identified stone. - Gallstones- S/P cholecystectomy today Plan - Diet per GS - KUB in one week if pancreatic stent still there, will need EGD for stent removal - Supportive care - Monitor labs - GI will sign off This patient has been seen by myself and Dr. Stahl and this note is written on her behalf <Alonso Sanchez - Last Filed: 08/29/18 12:23> (1) Cholelithiasis Status: Acute Code(s): K80.20 - Calculus of gallbladder without cholecystitis without obstruction (2) Common bile duct dilatation Status: Acute Code(s): K83.8 - Other specified diseases of biliary tract - Attending Attestation seen, examined agree with above <Cassandra Stahl - Last Filed: 08/29/18 14:10> <Alonso Sanchez - Last Filed: 08/29/18 12:23> (1) Cholelithiasis Qualifiers: Cholelithiasis location: gallbladder Cholecystitis presence: without cholecystitis Biliary obstruction: without biliary obstruction Qualified Code( s): K80.20 - Calculus of gallbladder without cholecystitis without obstruction <Cassandra Stahl - Last Filed: 08/29/18 14:10> (1) Cholelithiasis Qualifiers: Cholelithiasis location: gallbladder Cholecystitis presence: without cholecystitis Biliary obstruction: without biliary obstruction Qualified Code( s): K80.20 - Calculus of gallbladder without cholecystitis without obstruction
[2018-08-29 12:52] LABS: Hematocrit 35.3 % (35.0-46.0); Hemoglobin 12.3 gm/dL (11.6-15.3); Mean Corpuscular HGB Conc 34.7 % (32.0-36.0); Mean Corpuscular Hemoglobin 31.3 pg (27.0-34.0); Mean Corpuscular Volume 90.1 fL (80.0-100.0); Mean Platelet Volume 8.9 fL (7.0-11.0); Platelet Count 201 th/mm3 (150-450); Red Blood Count 3.92 mil/mm3 (4.00-5.30); Red Cell Distribution Width 13.9 % (11.6-17.2); White Blood Count 18.8 th/mm3 (4.0-11.0)
[2018-08-29 13:20] LABS: Alanine Aminotransferase 50 U/L (10-53); Albumin 2.3 g/dL (3.4-5.0); Alkaline Phosphatase 212 U/L (45-117); Anion Gap 7 meq/L (5-15); Aspartate Aminotransferase 112 U/L (15-37); Blood Urea Nitrogen 10 mg/dL (7-18); Calcium 7.6 mg/dL (8.5-10.1); Chloride 108 meq/L (98-107); Glomerular Filtration Rate Greater Than 89 mL/min (>89); Glucose,Random 148 mg/dL (74-106); Potassium 3.8 meq/L (3.5-5.1); Sodium 139 meq/L (136-145); Total Protein 6.1 g/dL (6.4-8.2)
--- NOTE | 2018-08-29 14:33 | P.PNIM ---
Subjective Interval history: This is a 33-year-old female with no significant PMH who presented to the ER with complaints of left flank pain in addition to fever and vaginal discharge x2 days. Pain is intermittent, sharp, 10/10, non-radiating. Reports h/o IVDU, however no use in several months. On arrival, BP 101/52, HR 115, O2 sat 97% on RA, Temp 100.5. WBC 20.3. INR 1.1. K+ 3.0. Creatinine 1.11. UA positive for UTI. +Clue Cells. Chlamydia/Gonorrhoeae negative, Monoscreen negative. CT Abdomen/Pelvis with cholelithiasis, dilatation of CBD but no stone identified , recommendation for MRCP. CXR negative. S/p Rocephin and Flagyl PO in ER. Patient actually tolerated Ceftriaxone IV. We will continue Ceftriaxone 2g and D /C Levaquin. Also, continue Flagyl for BV. Discussed with Dr. Joy (Gen Surg) who is planning to perform cholecystectomy at 8AM on 08/29/2018. Patient can likely be discharged later after surgery per Dr. Joy. Additional information: Patient seen/examined. Came in with abdominal pain, fever, chills. Imaging studies indicate CBD dilatation, acute cholecystitis. We consulted GI and GS. GI DID ERCP 08-28. Pt is NPO currently. She was started on Flagyl due to BV. We will change Flagyl to 500mg Q8 and add Levaquin 750mg Qday. Levaquin + Flagyl will give Gram negative and anaerobic coverage. Patient is allergic to PCN. 08-29 HAD ERCP WITH STENT PLACEMENT AND SPHINCTEROTOMY PERFORMED BY GI ON 08-28 HAD LAP CHOLECYSTECTOMY TODAY BY SURGERY A.m. labs Pain control per surgery Discussed with RN and patient and case management Physical Exam Vital signs: Vital Signs 08/28/18 16:45 08/28/18 20:15 08/29/18 00:00 Temperature 97.0 F L 98.3 F 98.2 F Pulse Rate 68 45 L Respiratory Rate 22 20 20 Blood Pressure 111/70 118/68 102/67 Pulse Oximetry 98 99 99 08/29/18 04:00 08/29/18 07:00 08/29/18 08:00 Temperature 98.6 F 99.6 F Pulse Rate 67 42 L 74 Respiratory Rate 20 20 17 Blood Pressure 126/74 116/73 Pulse Oximetry 98 94 L 08/29/18 10:00 08/29/18 10:15 08/29/18 10:30 Temperature 99.6 F Pulse Rate 90 80 70 Respiratory Rate 17 20 13 Blood Pressure 106/57 L 105/61 106/61 Pulse Oximetry 94 L 92 L 97 08/29/18 10:41 08/29/18 10:45 08/29/18 11:00 Temperature 99.1 F Pulse Rate 68 69 Respiratory Rate 15 14 14 Blood Pressure 106/59 L 104/58 L Pulse Oximetry 97 97 Intake & Output 08/28/18 08/29/18 08/29/18 18:59 06:59 18:59 Intake Total 1200 / 1200 1900 / 1900 2400 / 2400 Output Total 400 / 400 50 / 50 Balance 1200 / 1200 1500 / 1500 2350 / 2350 Weight 73.4 kg Intake: IV 200 / 200 1900 / 1900 1300 / 1300 NS Inj 1,000 ML @ 150 mls/hr IV 200 / 200 1800 / 1800 1000 / 1000 .CONT .Q6H40M [facility] Rx#:[id number] KCl 10 mEq Premix Inj 10 meq In 200 / 200 100 ml @ 100 mls/hr IV.SIG Q1H [facility] Rx#:[id number] Rocephin Inj 2,000 MG In NS Inj 100 / 100 100 ML @ 200 mls/hr IV.SIG Q24H [facility] Rx#:[id number] Flagyl 500 MG Inj 100 ML @ 0 100 / 100 mls/hr IV.SIG .STK-MED ONE Rx#: [id number] Oral 0 / 0 Anesthesia Amount 1000 / 1000 1100 / 1100 Output: Emesis 400 / 400 Estimated Blood Loss 50 / 50 Other: # Voids 7 3 Date of Last Bowel Movement 08/28/18 08/28/18 # Emeses 1 Narrative: GENERAL: Pleasant young white female in no acute distress. SKIN: warm and dry. HEENT: PERRLA EOMI CARDIOVASCULAR: Regular rate and rhythm. S1-S2 no S3 or S4 RESPIRATORY: No obvious rhonchi or wheezing. Clear to auscultation. Breath sounds equal bilaterally. GASTROINTESTINAL: Abdomen soft, mild tenderness to palpation, nondistended. BS normal. MUSCULOSKELETAL: Extremities without clubbing, cyanosis, or edema. No obvious deformities. NEUROLOGICAL: Awake, alert and oriented x4. PSYCHIATRIC: Appropriate mood and affect. Insight and judgment normal. Results - Labs CBC & Chem 7: 08/29/18 12:13 08/29/18 12:13 Laboratory Results - last 24 hr 08/29/18 08/29/18 12:13 12:13 WBC 18.8 H RBC 3.92 L Hgb 12.3 Hct 35.3 MCV 90.1 MCH 31.3 MCHC 34.7 RDW 13.9 Plt Count 201 MPV 8.9 Sodium 139 Potassium 3.8 Chloride 108 H Carbon Dioxide 24.0 Anion Gap 7 BUN 10 Creatinine 0.60 Estimated GFR Greater than 89 Random Glucose 148 H Calcium 7.6 L Total Bilirubin 2.8 H AST 112 H ALT 50 Alkaline Phosphatase 212 H Total Protein 6.1 L Albumin 2.3 L Microbiology 08/27/18 22:30 Clean Catch Urine Urine Culture - Final Escherichia coli 08/27/18 22:35 Blood - Peripheral Aerobic Blood Culture - Preliminary No growth in 2 days 08/27/18 22:35 Blood - Peripheral Anaerobic Blood Culture - Preliminary No growth in 2 days 08/27/18 22:40 Blood - Peripheral Aerobic Blood Culture - Preliminary No growth in 2 days 08/27/18 22:40 Blood - Peripheral Anaerobic Blood Culture - Preliminary No growth in 2 days - Imaging Impressions GI Procedure 08/28/18 00:00 CONCLUSION: Dilated common bile duct. Please refer to endoscopist report for further details. Cholangiogram,Operative 08/29/18 00:00 The common duct and intrahepatic biliary ducts are opacified. Common duct appears dilated. It is again tapered distally. Possible faint filling defects in the duct distally on one of the views. CONCLUSION: Dilated common duct again seen. Please refer to surgical report for further details. - Procedures Most importantly patient will need to have the pancreatic stent removed if it does not fall out by itself within the next week or so Patient to have a KUB of the abdomen in 1 week and based on that we will make a decision about going in to remove the pancreatic stent Addendum Documented By: Juan Bass MD 08/28/[id number] Addendum Signed By: <Electronically signed by Juan Bass MD> 12/14 Date of procedure: 08/28/18 Pre-op diagnosis: Choledocholithiasis as evidenced on MRCP Procedure: PROCEDURE PERFORMED [] PROCEDURE: The procedure, risks and benefits were discussed with Patient/POA and informed consent was obtained. Anesthesia sedated Patient with Diprivan. Patient was placed in prone position. ERCP: Patient was placed in a prone position. The Pentax videoscope was introduced through the oropharynx and advanced to the second portion of the duodenum where the ampula was identified. FINDINGS: The ampulla appeared to be unremarkable and within normal limits initial cannulation was that of the pancreatic duct several cannulations were made of the pancreatic duct and a such a 5 Welsh 3 cm pancreatic stent was placed to reduce risk of pancreatitis and indomethacin 100 mg suppositories were given needle-knife was performed in order to allow for bile duct cannulation again several attempts were made with no cannulation then Kinevac was given but no secretions were noted finally prior to giving up I was able to obtain cannulation of the common bile duct which appeared to be significantly dilated to about 15 mm with a gradual tapering towards the ampulla 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 a generous sphincterotomy was performed then using the 15 mm balloon we were able to perform 2 sweeps with no stones noted to be coming out and no filling defects were seen in the bile duct and subsequently the procedure was terminated ESTIMATED BLOOD LOSS: None SPECIMENS REMOVED: None COMPLICATIONS: None 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 PLAN: Patient is probably better served having a laparoscopic cholecystectomy Will start with clear liquid diets and be aggressive with hydration so as to reduce potential pancreatitis Further recommendations she will depend on her hospital course [place]est[place] [facility] [place] Surgeon: Juan Bass Condition: stable Disposition: floor Documented By: Juan Bass MD (1) Choledocholithiasis with acute cholecystitis with obstruction (2) Cholelithiasis (3) Common bile duct dilatation - Postoperative Diagnosis (1) Choledocholithiasis with acute cholecystitis with obstruction Date of procedure: 08/29/18 Procedure: Laparoscopic cholecystectomy with intraoperative cholangiogram with intraoperative use of fluoroscopy Surgeon: Shin Joy MD Halver Machine Operator: Shoshana Christensen CFA Estimated blood loss (mL): 50 IV fluids (mL): 1,100 Pathology: other (Gallbladder and contents to pathology) Operation and Findings: Patient was taken to the operating room and placed on the operating table in the supine position. After an adequate level of general endotracheal anesthesia was achieved the abdomen was prepped and draped in the usual fashion. Time-out was taken, confirming the correct patient, site, and procedure to be performed. Skin and subcutaneous tissue was infiltrated with local anesthetic and incision made in the umbilicus. The peritoneal cavity was directly visualized. A 12 mm balloon trocar was inserted and the balloon inflated. The abdomen was insufflated. The patient was placed in reverse Trendelenburg position. Three 5 mm trocars were then placed, with the first to the right of the falciform ligament and the second and third in the right subcostal region. All entered the abdominal cavity under direct vision uneventfully. The fundus of the gallbladder was grasped and retracted upward. Omental adhesions were taken down off of the gallbladder with both electrocautery and blunt dissection. The infundibulum was retracted laterally. The cystic artery was circumferentially dissected, doubly clipped proximally, singly clipped on the gallbladder side and divided. The cystic duct was circumferentially dissected as well and a single clip placed on the gallbladder side. A cystic ductotomy was made and an Jewell cholangiocatheter brought in via separate stab incision. A cholangiocatheter was inserted and secured in the to the cystic duct with an Endo Clip. Cholangiogram was obtained as the patient had ERCP the previous day and as there was some difficulty with cannulating the duct, the undersigned wanted to confirm that all filling defects were cleared. Real-time cholangio-gram was obtained under fluoroscopy; however, while the contrast filled the common bile duct, common hepatic duct, right and left hepatic ducts and some of the right hepatic radicles, no contrast flowed into the duodenum. 1 mg of glucagon was given IV and after waiting 3-5 minutes, repeat cholangiogram failed to demonstrate any flow of contrast into the duodenum. This was felt to be due to swelling at the papilla and thus no further manipulations were made. The cholangiocatheter was removed and the cystic duct divided. The cystic duct was secured with a 0 PDS Endoloop and 3 endoclips to help minimize the chance of any bile leakage while the papillary swelling resolved. The gallbladder was then dissected off of the liver bed with electrodissection. The gallbladder was placed into an Endo Catch device and removed via the umbilical port while observing via the upper 5 mm trocar site. The liver bed was made hemostatic with electrocautery. The cystic artery stump and cystic duct stump are seen to be clean and dry. All irrigation was aspirated from the abdominal cavity. Insufflation was discontinued and the upper abdominal trocars removed under direct vision. During desufflation, no bleeding was noted from the upper abdominal trocar sites. The laparoscope and umbilical port were then removed. The fascia was closed in the umbilicus with two figure- of-eight 0 Vicryl sutures and a single simple interrupted 0 Vicryl suture. The remaining local anesthetic was injected into each of the trocar sites. The skin was closed at each of the trocar sites with 4-0 Vicryl in an interrupted buried fashion. All sites were dressed with Steri-Strips. The patient was extubated and taken back to the recovery room in stable condition. Sponge and needle counts were reported to be correct. Patient tolerated the procedure extremely well. Documented By: Shin Joy MD 08/29/18 1016 Assessment and Plan - Assessment (1) Sepsis Code(s): A41.9 - Sepsis, unspecified organism Status: Acute (2) UTI (urinary tract infection) Code(s): N39.0 - Urinary tract infection, site not specified Status: Acute (3) Bacterial vaginosis Code(s): N76.0 - Acute vaginitis; B96.89 - Other specified bacterial agents as the cause of diseases classified elsewhere Status: Acute (4) Cholelithiasis Code(s): K80.20 - Calculus of gallbladder without cholecystitis without obstruction Status: Acute - Plan 1. Sepsis: Temp 100.5, HR 114, WBC 20.3, Source-UTI, S/p Blood cultures, continue IV Rocephin, follow up cultures, IVF for hydration. 2. UTI: U/a w/ UTI, follow up cultures, continue IVF, IV Rocephin, monitor I/O , 3. Cholelithiasis: CT Abd/Pelvis w/ cholelithiasis and CBD dilatation, images reviewed, will check MRCP-IUD in place +copper. Consult GI/Gen Sx as needed depending on results of imaging. Status post ERCP and stent placement and sphincterotomy August 28 status post laparoscopic cholecystectomy with intraoperative cholangiogram with intraoperative use of fluoroscopy by Dr. Joy on August 29 4. Bacterial Vaginosis: S/p Flagyl PO in ER, will continue w/ Flagyl 500mg bid x7 days. 5. DVT Prophylaxis: SCD/Teds Remains on Flagyl and Rocephin Pain control per surgery A.m. labs Await clearance from surgery and GI Discussed with RN and patient and case management Code Status: Full code Discussed Condition With: RN and patient and case management Discharge Planning: Pending GI and surgical clearance (1) Sepsis Qualifiers: Sepsis type: sepsis due to unspecified organism Qualified Code(s): A41.9 - Sepsis, unspecified organism (2) UTI (urinary tract infection) Qualifiers: Urinary tract infection type: site unspecified Hematuria presence: with hematuria Qualified Code(s): N39.0 - Urinary tract infection, site not specified; R31.9 - Hematuria, unspecified (4) Cholelithiasis Qualifiers: Cholelithiasis location: gallbladder Cholecystitis presence: without cholecystitis Biliary obstruction: without biliary obstruction Qualified Code( s): K80.20 - Calculus of gallbladder without cholecystitis without obstruction
[2018-08-29] MEDS: Zolpidem Tartrate 5 MG Tablet PO PRN (20:56)
[2018-08-30] MEDS: Sod Chloride 0.9% Inj 1,000 ML IV.CONT SCH ×5 (00:11→21:32)
[2018-08-30] MEDS: Morphine Inj 4 MG/ML Vial IV.PUSH PRN ×6 (01:36→22:05)
[2018-08-30 08:11] LABS: Baso % (Auto) 0.1 % (0.0-2.0); Hematocrit 33.1 % (35.0-46.0); Hemoglobin 11.2 gm/dL (11.6-15.3); Lymph # (Auto) 0.9 th/mm3 (1.0-4.8); Lymph % (Auto) 5.9 % (9.0-44.0); Mean Corpuscular HGB Conc 33.8 % (32.0-36.0); Mean Corpuscular Hemoglobin 30.2 pg (27.0-34.0); Mean Corpuscular Volume 89.4 fL (80.0-100.0); Mean Platelet Volume 8.8 fL (7.0-11.0); Mono # (Auto) 0.7 th/mm3 (0.0-0.9); Mono % (Auto) 4.8 % (0.0-8.0); Neut % (Auto) 89.2 % (16.0-70.0); Platelet Count 240 th/mm3 (150-450); Red Cell Distribution Width 13.9 % (11.6-17.2); White Blood Count 14.5 th/mm3 (4.0-11.0)
[2018-08-30 08:31] LABS: Alanine Aminotransferase 100 U/L (10-53); Alkaline Phosphatase 264 U/L (45-117); Anion Gap 7 meq/L (5-15); Aspartate Aminotransferase 157 U/L (15-37); Blood Urea Nitrogen 8 mg/dL (7-18); Calcium 7.3 mg/dL (8.5-10.1); Carbon Dioxide 26.2 meq/L (21.0-32.0); Chloride 110 meq/L (98-107); Glomerular Filtration Rate Greater Than 89 mL/min (>89); Glucose,Random 91 mg/dL (74-106); Lipase 145 U/L (73-393); Potassium 3.7 meq/L (3.5-5.1); Sodium 143 meq/L (136-145); Total Protein 5.4 g/dL (6.4-8.2)
[2018-08-30] MEDS ORDERED: Naloxone Inj 0.4 MG/ML Vial IV.PUSH PRN (09:04)
[2018-08-30] MEDS: metroNIDAZOLE 500 MG Tablet PO SCH ×2 (09:11→15:36)
[2018-08-30] MEDS: Senna/Docusate Sodium 8.6/50 MG Tablet PO SCH ×2 (09:11→21:32)
[2018-08-30] MEDS: oxyCODONE/Acetaminophen 10/325 Tablet PO PRN ×3 (09:28→21:33)
--- NOTE | 2018-08-30 14:26 | P.PNIM ---
Subjective Interval history: This is a 33-year-old female with no significant PMH who presented to the ER with complaints of left flank pain in addition to fever and vaginal discharge x2 days. Pain is intermittent, sharp, 10/10, non-radiating. Reports h/o IVDU, however no use in several months. On arrival, BP 101/52, HR 115, O2 sat 97% on RA, Temp 100.5. WBC 20.3. INR 1.1. K+ 3.0. Creatinine 1.11. UA positive for UTI. +Clue Cells. Chlamydia/Gonorrhoeae negative, Monoscreen negative. CT Abdomen/Pelvis with cholelithiasis, dilatation of CBD but no stone identified , recommendation for MRCP. CXR negative. S/p Rocephin and Flagyl PO in ER. Patient actually tolerated Ceftriaxone IV. We will continue Ceftriaxone 2g and D /C Levaquin. Also, continue Flagyl for BV. Discussed with Dr. Joy (Gen Surg) who is planning to perform cholecystectomy at 8AM on 08/29/2018. Patient can likely be discharged later after surgery per Dr. Joy. Additional information: Patient seen/examined. Came in with abdominal pain, fever, chills. Imaging studies indicate CBD dilatation, acute cholecystitis. We consulted GI and GS. GI DID ERCP 08-28. Pt is NPO currently. She was started on Flagyl due to BV. We will change Flagyl to 500mg Q8 and add Levaquin 750mg Qday. Levaquin + Flagyl will give Gram negative and anaerobic coverage. Patient is allergic to PCN. 08-29 HAD ERCP WITH STENT PLACEMENT AND SPHINCTEROTOMY PERFORMED BY GI ON 08-28 HAD LAP CHOLECYSTECTOMY TODAY BY SURGERY A.m. labs Pain control per surgery Discussed with RN and patient and case management 08-30 PATIENT IS STILL HAVING LOTS OF PAIN STATES PASSING GAS NO BOWEL MOVEMENT NOT EATING A FULL DIET YET DW RN AND PT AND CM AM LABS HOPEFULLY HOME IN NEXT 24 TO 48HOURS MAY BE A DIFFICULT DISCHARGE DUE TO PAIN WITH HX OF IVDU Physical Exam Vital signs: Vital Signs 08/29/18 16:00 08/29/18 18:00 08/29/18 19:45 Temperature 98 F 98.0 F Pulse Rate 110 H 72 73 Respiratory Rate 16 18 Blood Pressure 106/67 105/72 Pulse Oximetry 96 96 08/29/18 22:00 08/29/18 22:59 08/30/18 00:00 Temperature 98.4 F Pulse Rate 74 80 84 Respiratory Rate 17 17 Blood Pressure 114/71 Pulse Oximetry 92 L 08/30/18 03:43 08/30/18 08:00 08/30/18 12:00 Temperature 99.5 F 99.2 F 98.8 F Pulse Rate 77 77 77 Respiratory Rate 18 18 18 Blood Pressure 115/67 122/69 120/56 L Pulse Oximetry 94 L 90 L 92 L Intake & Output 08/29/18 08/30/18 08/30/18 19:59 06:59 18:59 Intake Total 1000 / 1000 Output Total Balance 1000 / 1000 Weight Intake: IV 1000 / 1000 NS Inj 1,000 ML @ 150 mls/hr IV 1000 / 1000 .CONT .Q6H40M [facility] Rx#:[id number] KCl 10 mEq Premix Inj 10 meq In 100 ml @ 100 mls/hr IV.SIG Q1H [facility] Rx#:[id number] Rocephin Inj 2,000 MG In NS Inj 100 ML @ 200 mls/hr IV.SIG Q24H [facility] Rx#:[id number] Flagyl 500 MG Inj 100 ML @ 0 mls/hr IV.SIG .STK-MED ONE Rx#: [id number] Oral Anesthesia Amount Output: Estimated Blood Loss Other: # Voids Date of Last Bowel Movement # Bowel Movements Narrative: GENERAL: Pleasant young white female in no acute distress. Pain out of proportion to what is expected SKIN: warm and dry. Head is normocephalic atraumatic HEENT: PERRLA EOMI tongue is midline Neck is supple there is no JVD good range of motion CARDIOVASCULAR: Regular rate and rhythm. S1-S2 no S3 or S4 RESPIRATORY: No obvious rhonchi or wheezing. Clear to auscultation. Breath sounds equal bilaterally. GASTROINTESTINAL: Abdomen soft, mild tenderness to palpation, nondistended. BS normal. MUSCULOSKELETAL: Extremities without clubbing, cyanosis, or edema. No obvious deformities. NEUROLOGICAL: Awake, alert and oriented x4. PSYCHIATRIC: Appropriate mood and affect. Insight and judgment normal. Results - Labs CBC & Chem 7: 08/30/18 06:53 08/30/18 06:33 Laboratory Results - last 24 hr 08/30/18 08/30/18 06:33 06:53 WBC 14.5 H RBC 3.70 L Hgb 11.2 L Hct 33.1 L MCV 89.4 MCH 30.2 MCHC 33.8 RDW 13.9 Plt Count 240 MPV 8.8 Neut % (Auto) 89.2 H Lymph % (Auto) 5.9 L [place] % (Auto) 4.8 Eos % (Auto) 0.0 Baso % (Auto) 0.1 Neut # (Auto) 13.0 H Lymph # (Auto) 0.9 L [place] # (Auto) 0.7 Eos # (Auto) 0.0 Baso # (Auto) 0.0 WBC Differential . Differential Comment Auto diff final Sodium 143 Potassium 3.7 Chloride 110 H Carbon Dioxide 26.2 Anion Gap 7 BUN 8 Creatinine 0.58 Estimated GFR Greater than 89 Random Glucose 91 Calcium 7.3 L* Prot Corrected Calcium 8.2 L Total Bilirubin 3.0 H AST 157 H ALT 100 H Alkaline Phosphatase 264 H Total Protein 5.4 L D Albumin 2.0 L Lipase 145 Microbiology 08/27/18 22:35 Blood - Peripheral Aerobic Blood Culture - Preliminary No growth in 3 days 08/27/18 22:35 Blood - Peripheral Anaerobic Blood Culture - Preliminary No growth in 3 days 08/27/18 22:40 Blood - Peripheral Aerobic Blood Culture - Preliminary No growth in 3 days 08/27/18 22:40 Blood - Peripheral Anaerobic Blood Culture - Preliminary No growth in 3 days 08/27/18 22:30 Clean Catch Urine Urine Culture - Final Escherichia coli - Imaging ITS Impressions Abdomen/Pelvis CT 08/27/18 22:06 CONCLUSION: Cholelithiasis with dilatation of common bile duct but no discrete stone identified. MRCP could be performed for further evaluation if clinically indicated. Chest X-Ray 08/27/18 22:06 CONCLUSION: Negative examination. Cholangiopancreatography MRI 08/28/18 00:00 CONCLUSION: 1. There is extrahepatic bile duct dilatation, as above with likely 2 tiny stones in the distal common duct measuring between 2 and 3 mm. 2. Gallbladder is distended and contains multiple stones. However, the gallbladder demonstrates no wall thickening or inflammatory change. 3. There is significant left perinephric inflammation and inflammation extending in the inferior perinephric space. Prior CT demonstrated questionable abnormal enhancement the lower pole. These findings raise suspicion for pyelonephritis. Suggest correlating with clinical examination and a urinalysis. GI Procedure 08/28/18 00:00 CONCLUSION: Dilated common bile duct. Please refer to endoscopist report for further details. Cholangiogram,Operative 08/29/18 00:00 The common duct and intrahepatic biliary ducts are opacified. Common duct appears dilated. It is again tapered distally. Possible faint filling defects in the duct distally on one of the views. CONCLUSION: Dilated common duct again seen. Please refer to surgical report for further details. - Procedures Most importantly patient will need to have the pancreatic stent removed if it does not fall out by itself within the next week or so Patient to have a KUB of the abdomen in 1 week and based on that we will make a decision about going in to remove the pancreatic stent Addendum Documented By: Juan Bass MD 08/28/[id number] Addendum Signed By: <Electronically signed by Juan Bass MD> 12/14 Date of procedure: 08/28/18 Pre-op diagnosis: Choledocholithiasis as evidenced on MRCP Procedure: PROCEDURE PERFORMED [] PROCEDURE: The procedure, risks and benefits were discussed with Patient/POA and informed consent was obtained. Anesthesia sedated Patient with Diprivan. Patient was placed in prone position. ERCP: Patient was placed in a prone position. The Pentax videoscope was introduced through the oropharynx and advanced to the second portion of the duodenum where the ampula was identified. FINDINGS: The ampulla appeared to be unremarkable and within normal limits initial cannulation was that of the pancreatic duct several cannulations were made of the pancreatic duct and a such a 5 Persian 3 cm pancreatic stent was placed to reduce risk of pancreatitis and indomethacin 100 mg suppositories were given needle-knife was performed in order to allow for bile duct cannulation again several attempts were made with no cannulation then Kinevac was given but no secretions were noted finally prior to giving up I was able to obtain cannulation of the common bile duct which appeared to be significantly dilated to about 15 mm with a gradual tapering towards the ampulla 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 a generous sphincterotomy was performed then using the 15 mm balloon we were able to perform 2 sweeps with no stones noted to be coming out and no filling defects were seen in the bile duct and subsequently the procedure was terminated ESTIMATED BLOOD LOSS: None SPECIMENS REMOVED: None COMPLICATIONS: None 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 Documented By: Juan Bass MD (1) Choledocholithiasis with acute cholecystitis with obstruction (2) Cholelithiasis (3) Common bile duct dilatation - Postoperative Diagnosis (1) Choledocholithiasis with acute cholecystitis with obstruction Date of procedure: 08/29/18 Procedure: Laparoscopic cholecystectomy with intraoperative cholangiogram with intraoperative use of fluoroscopy Surgeon: Shin Joy MD Car Clerk Pullman: Shoshana Christensen CFA Estimated blood loss (mL): 50 IV fluids (mL): 1,100 Pathology: other (Gallbladder and contents to pathology) Operation and Findings: Patient was taken to the operating room and placed on the operating table in the supine position. After an adequate level of general endotracheal anesthesia was achieved the abdomen was prepped and draped in the usual fashion. Time-out was taken, confirming the correct patient, site, and procedure to be performed. Skin and subcutaneous tissue was infiltrated with local anesthetic and incision made in the umbilicus. The peritoneal cavity was directly visualized. A 12 mm balloon trocar was inserted and the balloon inflated. The abdomen was insufflated. The patient was placed in reverse Trendelenburg position. Three 5 mm trocars were then placed, with the first to the right of the falciform ligament and the second and third in the right subcostal region. All entered the abdominal cavity under direct vision uneventfully. The fundus of the gallbladder was grasped and retracted upward. Omental adhesions were taken down off of the gallbladder with both electrocautery and blunt dissection. The infundibulum was retracted laterally. The cystic artery was circumferentially dissected, doubly clipped proximally, singly clipped on the gallbladder side and divided. The cystic duct was circumferentially dissected as well and a single clip placed on the gallbladder side. A cystic ductotomy was made and an Jewell cholangiocatheter brought in via separate stab incision. A cholangiocatheter was inserted and secured in the to the cystic duct with an Endo Clip. Cholangiogram was obtained as the patient had ERCP the previous day and as there was some difficulty with cannulating the duct, the undersigned wanted to confirm that all filling defects were cleared. Real-time cholangio-gram was obtained under fluoroscopy; however, while the contrast filled the common bile duct, common hepatic duct, right and left hepatic ducts and some of the right hepatic radicles, no contrast flowed into the duodenum. 1 mg of glucagon was given IV and after waiting 3-5 minutes, repeat cholangiogram failed to demonstrate any flow of contrast into the duodenum. This was felt to be due to swelling at the papilla and thus no further manipulations were made. The cholangiocatheter was removed and the cystic duct divided. The cystic duct was secured with a 0 PDS Endoloop and 3 endoclips to help minimize the chance of any bile leakage while the papillary swelling resolved. The gallbladder was then dissected off of the liver bed with electrodissection. The gallbladder was placed into an Endo Catch device and removed via the umbilical port while observing via the upper 5 mm trocar site. The liver bed was made hemostatic with electrocautery. The cystic artery stump and cystic duct stump are seen to be clean and dry. All irrigation was aspirated from the abdominal cavity. Insufflation was discontinued and the upper abdominal trocars removed under direct vision. During desufflation, no bleeding was noted from the upper abdominal trocar sites. The laparoscope and umbilical port were then removed. The fascia was closed in the umbilicus with two figure- of-eight 0 Vicryl sutures and a single simple interrupted 0 Vicryl suture. The remaining local anesthetic was injected into each of the trocar sites. The skin was closed at each of the trocar sites with 4-0 Vicryl in an interrupted buried fashion. All sites were dressed with Steri-Strips. The patient was extubated and taken back to the recovery room in stable condition. Sponge and needle counts were reported to be correct. Patient tolerated the procedure extremely well. Documented By: Shin Joy MD 08/29/18 1016 Assessment and Plan - Assessment (1) Sepsis Code(s): A41.9 - Sepsis, unspecified organism Status: Acute (2) UTI (urinary tract infection) Code(s): N39.0 - Urinary tract infection, site not specified Status: Acute (3) Bacterial vaginosis Code(s): N76.0 - Acute vaginitis; B96.89 - Other specified bacterial agents as the cause of diseases classified elsewhere Status: Acute (4) Cholelithiasis Code(s): K80.20 - Calculus of gallbladder without cholecystitis without obstruction Status: Acute - Plan 1. Sepsis: Temp 100.5, HR 114, WBC 20.3, Source-UTI, S/p Blood cultures, continue IV Rocephin, follow up cultures, IVF for hydration. 2. UTI: U/a w/ UTI, follow up cultures, continue IVF, IV Rocephin, monitor I/O , 3. Cholelithiasis: CT Abd/Pelvis w/ cholelithiasis and CBD dilatation, images reviewed, will check MRCP-IUD in place +copper. Consult GI/Gen Sx as needed depending on results of imaging. Status post ERCP and stent placement and sphincterotomy August 28 status post laparoscopic cholecystectomy with intraoperative cholangiogram with intraoperative use of fluoroscopy by Dr. Joy on August 29 4. Bacterial Vaginosis: S/p Flagyl PO in ER, will continue w/ Flagyl 500mg bid x7 days. 5. DVT Prophylaxis: SCD/Teds Remains on Flagyl and Rocephin Pain control per surgery A.m. labs Await clearance from surgery and GI Discussed with RN and patient and case management Started on oral pain medications Still having lots of pain But has a history of IVDU Code Status: Full code Discussed Condition With: RN and patient Discharge Planning: Pending GI and surgical clearance And pain control (1) Sepsis Qualifiers: Sepsis type: sepsis due to unspecified organism Qualified Code(s): A41.9 - Sepsis, unspecified organism (2) UTI (urinary tract infection) Qualifiers: Urinary tract infection type: site unspecified Hematuria presence: with hematuria Qualified Code(s): N39.0 - Urinary tract infection, site not specified; R31.9 - Hematuria, unspecified (4) Cholelithiasis Qualifiers: Cholelithiasis location: gallbladder Cholecystitis presence: without cholecystitis Biliary obstruction: without biliary obstruction Qualified Code( s): K80.20 - Calculus of gallbladder without cholecystitis without obstruction
--- NOTE | 2018-08-30 16:11 | P.PNGS ---
Subjective Patient reports: still having pain, no flatus, no bowel movement Interval history: DAILY PROGRESS NOTE FOR SURGICAL ATTENDING, DR. MIMI GRIFFITH Patient still in pain Does not want to go home Points throughout her abdomen where her pain is located Is trying to get up to move around Physical Exam Vital signs: Vital Signs 08/29/18 18:00 08/29/18 19:45 08/29/18 22:00 Temperature 98.0 F Pulse Rate 72 73 74 Respiratory Rate 18 17 Blood Pressure 105/72 Pulse Oximetry 96 08/29/18 22:59 08/30/18 00:00 08/30/18 03:43 Temperature 98.4 F 99.5 F Pulse Rate 80 84 77 Respiratory Rate 17 18 Blood Pressure 114/71 115/67 Pulse Oximetry 92 L 94 L 08/30/18 08:00 08/30/18 12:00 Temperature 99.2 F 98.8 F Pulse Rate 77 77 Respiratory Rate 18 18 Blood Pressure 122/69 120/56 L Pulse Oximetry 90 L 92 L Intake & Output 08/29/18 08/30/18 08/30/18 19:59 06:59 18:59 Intake Total 1000 / 1000 Output Total Balance 1000 / 1000 Weight Intake: IV 1000 / 1000 NS Inj 1,000 ML @ 150 mls/hr IV 1000 / 1000 .CONT .Q6H40M [facility] Rx#:[id number] KCl 10 mEq Premix Inj 10 meq In 100 ml @ 100 mls/hr IV.SIG Q1H [facility] Rx#:[id number] Rocephin Inj 2,000 MG In NS Inj 100 ML @ 200 mls/hr IV.SIG Q24H [facility] Rx#:[id number] Flagyl 500 MG Inj 100 ML @ 0 mls/hr IV.SIG .STK-MED ONE Rx#: [id number] Oral Anesthesia Amount Output: Estimated Blood Loss Other: # Voids Date of Last Bowel Movement # Bowel Movements Narrative: Alert oriented Obvious discomfort No shortness of breath Abdomen postsurgical pain at the surgical sites no rebound or guarding Still has significant soreness in her upper abdomen Extremities moves all extremities well no clubbing cyanosis or edema Results - Labs 08/30/18 06:53 08/30/18 06:33 Laboratory Results - last 24 hr 08/30/18 08/30/18 06:33 06:53 WBC 14.5 H RBC 3.70 L Hgb 11.2 L Hct 33.1 L MCV 89.4 MCH 30.2 MCHC 33.8 RDW 13.9 Plt Count 240 MPV 8.8 Neut % (Auto) 89.2 H Lymph % (Auto) 5.9 L [place] % (Auto) 4.8 Eos % (Auto) 0.0 Baso % (Auto) 0.1 Neut # (Auto) 13.0 H Lymph # (Auto) 0.9 L [place] # (Auto) 0.7 Eos # (Auto) 0.0 Baso # (Auto) 0.0 WBC Differential . Differential Comment Auto diff final Sodium 143 Potassium 3.7 Chloride 110 H Carbon Dioxide 26.2 Anion Gap 7 BUN 8 Creatinine 0.58 Estimated GFR Greater than 89 Random Glucose 91 Calcium 7.3 L* Prot Corrected Calcium 8.2 L Total Bilirubin 3.0 H AST 157 H ALT 100 H Alkaline Phosphatase 264 H Total Protein 5.4 L D Albumin 2.0 L Lipase 145 - Imaging Imaging: ITS Impressions Abdomen/Pelvis CT 08/27/18 22:06 CONCLUSION: Cholelithiasis with dilatation of common bile duct but no discrete stone identified. MRCP could be performed for further evaluation if clinically indicated. Chest X-Ray 08/27/18 22:06 CONCLUSION: Negative examination. Cholangiopancreatography MRI 08/28/18 00:00 CONCLUSION: 1. There is extrahepatic bile duct dilatation, as above with likely 2 tiny stones in the distal common duct measuring between 2 and 3 mm. 2. Gallbladder is distended and contains multiple stones. However, the gallbladder demonstrates no wall thickening or inflammatory change. 3. There is significant left perinephric inflammation and inflammation extending in the inferior perinephric space. Prior CT demonstrated questionable abnormal enhancement the lower pole. These findings raise suspicion for pyelonephritis. Suggest correlating with clinical examination and a urinalysis. GI Procedure 08/28/18 00:00 CONCLUSION: Dilated common bile duct. Please refer to endoscopist report for further details. Cholangiogram,Operative 08/29/18 00:00 The common duct and intrahepatic biliary ducts are opacified. Common duct appears dilated. It is again tapered distally. Possible faint filling defects in the duct distally on one of the views. CONCLUSION: Dilated common duct again seen. Please refer to surgical report for further details. Additional studies: Intraoperative cholangiogram results FINDINGS: The common duct and intrahepatic biliary ducts are opacified. Common duct appears dilated. It is again tapered distally. Possible faint filling defects in the duct distally on one of the views. CONCLUSION: Dilated common duct again seen. Please refer to surgical report for further details. Assessment and Plan - Assessment (1) Status post laparoscopic cholecystectomy Code(s): Z90.49 - Acquired absence of other specified parts of digestive tract Status: Acute (2) Cholelithiasis Code(s): K80.20 - Calculus of gallbladder without cholecystitis without obstruction Status: Acute (3) Common bile duct dilatation Code(s): K83.8 - Other specified diseases of biliary tract Status: Acute - Plan 33-year-old female status post laparoscopic cholecystectomy with intraoperative cholangiogram Postop day 1 still having significant abdominal discomfort slight elevation of her liver enzymes as well may be soft postsurgical Official IOC in the operating room shows questionable filling defect We will keep overnight recheck LFTs in the morning - Attending Attestation NOTE FOR SURGICAL ATTENDING, DR. MMII GRIFFITH I agree with above assessment and plan. The exam, history, and the medical decision-making described in the above note were completed with the assistance of the mid-level provider. I reviewed and agree with the findings presented. I attest that I had a [id number] encounter with the patient on the same day, and personally performed and documented my assessment and findings in the medical record. The following services were provided during this hospital visit: Chart data review, vital sign assessments/reviewing monitor data Review of consultations notes if present. Medication orders/review and/or management Ordering and/or reviewing lab tests Ordering and/or interpreting/reviewing x-rays and/or diagnostic studies Care of the patient and discussion of the patient with the care team Documentation time To help prompt me to consider important information that might be impacting today's encounter and assessment, Information from prior notes written by myself or my colleagues may have been "brought forward/copy and pasted" into today's note. (2) Cholelithiasis Qualifiers: Cholelithiasis location: gallbladder Cholecystitis presence: without cholecystitis Biliary obstruction: without biliary obstruction Qualified Code( s): K80.20 - Calculus of gallbladder without cholecystitis without obstruction
[2018-08-30] MEDS: Zolpidem Tartrate 5 MG Tablet PO PRN (21:33)
[2018-08-31] MEDS: Morphine Inj 4 MG/ML Vial IV.PUSH PRN ×6 (01:59→22:19)
[2018-08-31] MEDS: oxyCODONE/Acetaminophen 10/325 Tablet PO PRN ×4 (03:35→21:51)
--- NOTE | 2018-08-31 05:09 | XR ---
EXAM DATE: 08/31/2018 4:46 AM EST AGE/SEX: 33 years / Female INDICATIONS: Evaluate for pneumonia. Chest pain. Cough, Congestion. CLINICAL DATA: This is the patient's subsequent encounter. Patient reports that signs and symptoms h ave been present for 4 - 6 days and indicates a pain score of 5/10. MEDICAL/SURGICAL HISTORY: Sepsis. Smoker. Cholecystectomy. COMPARISON: [facility], CHEST 1V SINGLE AP, 08/27/2018. . FINDINGS: Hazy bibasilar pleural-parenchymal opacities are present. Cardiac contours are unremarkable. CONCLUSION: Hazy bibasilar pleural-parenchymal opacities. Electronically signed by: Dl Souza MD 08/31/2018 5:08 AM EST
[2018-08-31 05:48] LABS: Baso % (Auto) 0.2 % (0.0-2.0); Eos # (Auto) 0.1 th/mm3 (0.0-0.4); Eos % (Auto) 0.6 % (0.0-4.0); Hematocrit 31.4 % (35.0-46.0); Hemoglobin 10.5 gm/dL (11.6-15.3); Lymph # (Auto) 1.4 th/mm3 (1.0-4.8); Lymph % (Auto) 15.2 % (9.0-44.0); Mean Corpuscular HGB Conc 33.5 % (32.0-36.0); Mean Corpuscular Hemoglobin 30.4 pg (27.0-34.0); Mean Corpuscular Volume 90.8 fL (80.0-100.0); Mean Platelet Volume 8.1 fL (7.0-11.0); Mono # (Auto) 0.6 th/mm3 (0.0-0.9); Mono % (Auto) 6.4 % (0.0-8.0); Neut # (Auto) 6.9 th/mm3 (1.8-7.7); Neut % (Auto) 77.6 % (16.0-70.0); Platelet Count 249 th/mm3 (150-450); Red Blood Count 3.46 mil/mm3 (4.00-5.30); Red Cell Distribution Width 14.1 % (11.6-17.2); White Blood Count 8.9 th/mm3 (4.0-11.0)
[2018-08-31 06:24] LABS: Alanine Aminotransferase 77 U/L (10-53); Albumin 1.8 g/dL (3.4-5.0); Alkaline Phosphatase 251 U/L (45-117); Amylase 31 U/L (25-115); Anion Gap 7 meq/L (5-15); Aspartate Aminotransferase 66 U/L (15-37); Blood Urea Nitrogen 9 mg/dL (7-18); Calcium 7.1 mg/dL (8.5-10.1); Carbon Dioxide 25.1 meq/L (21.0-32.0); Chloride 111 meq/L (98-107); Glomerular Filtration Rate Greater Than 89 mL/min (>89); Glucose,Random 82 mg/dL (74-106); Lipase 160 U/L (73-393); Magnesium 1.5 mg/dL (1.5-2.5); Phosphorus 2.6 mg/dL (2.5-4.9); Potassium 3.4 meq/L (3.5-5.1); Sodium 143 meq/L (136-145); Total Protein 4.9 g/dL (6.4-8.2)
--- NOTE | 2018-08-31 09:03 | P.PN ---
Subjective Interval history: Still quite painful; no flatus or BM yet Physical Exam Vital signs: Vital Signs 08/30/18 09:13 08/30/18 12:00 08/30/18 13:00 Temperature 98.8 F Pulse Rate 77 77 Respiratory Rate 16 18 Blood Pressure 120/56 L Pulse Oximetry 92 L 08/30/18 14:06 08/30/18 16:00 08/30/18 17:00 Temperature 99.5 F Pulse Rate 68 68 Respiratory Rate 16 18 Blood Pressure 118/79 Pulse Oximetry 94 L 08/30/18 18:24 08/30/18 20:00 08/31/18 00:00 Temperature 99.6 F 98.8 F Pulse Rate 73 73 Respiratory Rate 16 16 17 Blood Pressure 103/68 106/75 Pulse Oximetry 93 L 91 L 08/31/18 00:07 08/31/18 04:00 08/31/18 08:00 Temperature 99.3 F 98 F Pulse Rate 60 70 56 L Respiratory Rate 18 18 Blood Pressure 121/79 127/68 Pulse Oximetry 90 L 93 L Intake & Output 08/30/18 08/31/18 08/31/18 18:59 06:59 18:59 Intake Total 2100 / 2100 1200 / 1200 100 / 100 Balance 2100 / 2100 1200 / 1200 100 / 100 Weight 75 kg Intake: IV 2100 / 2100 1200 / 1200 100 / 100 NS Inj 1,000 ML @ 150 mls/hr IV 2000 / 2000 1000 / 1000 .CONT .Q6H40M [facility] Rx#:[id number] Ofirmev Inj 1,000 mg In 100 ml 100 / 100 100 / 100 100 / 100 @ 400 mls/hr IV.SIG Q6H [facility] Rx# :[id number] Rocephin Inj 2,000 MG In NS Inj 100 / 100 100 ML @ 200 mls/hr IV.SIG Q24H [facility] Rx#:[id number] Other: # Voids 3 3 Date of Last Bowel Movement 08/28/18 08/28/18 - Constitutional mild distress - Routine Abdominal Exam Present: soft, tenderness (diffusely tender) Results - Labs CBC & Chem 7: 08/31/18 05:09 08/31/18 05:09 Laboratory Results - last 24 hr 08/31/18 08/31/18 05:09 05:09 WBC 8.9 RBC 3.46 L Hgb 10.5 L Hct 31.4 L MCV 90.8 MCH 30.4 MCHC 33.5 RDW 14.1 Plt Count 249 MPV 8.1 Neut % (Auto) 77.6 H Lymph % (Auto) 15.2 Tyrrell % (Auto) 6.4 Eos % (Auto) 0.6 Baso % (Auto) 0.2 Neut # (Auto) 6.9 Lymph # (Auto) 1.4 Tyrrell # (Auto) 0.6 Eos # (Auto) 0.1 Baso # (Auto) 0.0 WBC Differential . Differential Comment Auto diff final Sodium 143 Potassium 3.4 L Chloride 111 H Carbon Dioxide 25.1 Anion Gap 7 BUN 9 Creatinine 0.52 Estimated GFR Greater than 89 Random Glucose 82 Calcium 7.1 L* Prot Corrected Calcium 8.3 L Phosphorus 2.6 Magnesium 1.5 Total Bilirubin 0.8 Direct Bilirubin 0.6 H Indirect Bilirubin 0.2 AST 66 H ALT 77 H Alkaline Phosphatase 251 H Total Protein 4.9 L Albumin 1.8 L Amylase 31 Lipase 160 Microbiology 08/27/18 22:35 Blood - Peripheral Aerobic Blood Culture - Preliminary No growth in 3 days 08/27/18 22:35 Blood - Peripheral Anaerobic Blood Culture - Preliminary No growth in 3 days 08/27/18 22:40 Blood - Peripheral Aerobic Blood Culture - Preliminary No growth in 3 days 08/27/18 22:40 Blood - Peripheral Anaerobic Blood Culture - Preliminary No growth in 3 days - Imaging Impressions Chest X-Ray 08/31/18 00:00 CONCLUSION: Hazy bibasilar pleural-parenchymal opacities. - Procedures Most importantly patient will need to have the pancreatic stent removed if it does not fall out by itself within the next week or so Patient to have a KUB of the abdomen in 1 week and based on that we will make a decision about going in to remove the pancreatic stent Addendum Documented By: Juan Bass MD 08/28/[id number] Addendum Signed By: <Electronically signed by Juan Bass MD> 12/14 Date of procedure: 08/28/18 Pre-op diagnosis: Choledocholithiasis as evidenced on MRCP Procedure: PROCEDURE PERFORMED [] PROCEDURE: The procedure, risks and benefits were discussed with Patient/POA and informed consent was obtained. Anesthesia sedated Patient with Diprivan. Patient was placed in prone position. ERCP: Patient was placed in a prone position. The Pentax videoscope was introduced through the oropharynx and advanced to the second portion of the duodenum where the ampula was identified. FINDINGS: The ampulla appeared to be unremarkable and within normal limits initial cannulation was that of the pancreatic duct several cannulations were made of the pancreatic duct and a such a 5 Estonian 3 cm pancreatic stent was placed to reduce risk of pancreatitis and indomethacin 100 mg suppositories were given needle-knife was performed in order to allow for bile duct cannulation again several attempts were made with no cannulation then Kinevac was given but no secretions were noted finally prior to giving up I was able to obtain cannulation of the common bile duct which appeared to be significantly dilated to about 15 mm with a gradual tapering towards the ampulla 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 a generous sphincterotomy was performed then using the 15 mm balloon we were able to perform 2 sweeps with no stones noted to be coming out and no filling defects were seen in the bile duct and subsequently the procedure was terminated ESTIMATED BLOOD LOSS: None SPECIMENS REMOVED: None COMPLICATIONS: None 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 PLAN: Patient is probably better served having a laparoscopic cholecystectomy Will start with clear liquid diets and be aggressive with hydration so as to reduce potential pancreatitis Further recommendations she will depend on her hospital course [place] [facility] [place]: Juan Bass Condition: stable Disposition: floor Documented By: Juan Bass MD (1) Choledocholithiasis with acute cholecystitis with obstruction (2) Cholelithiasis (3) Common bile duct dilatation - Postoperative Diagnosis (1) Choledocholithiasis with acute cholecystitis with obstruction Date of procedure: 08/29/18 Procedure: Laparoscopic cholecystectomy with intraoperative cholangiogram with intraoperative use of fluoroscopy Surgeon: Shin Joy MD Screen Cutter And Trimmer: Shoshana Christensen CFA Estimated blood loss (mL): 50 IV fluids (mL): 1,100 Pathology: other (Gallbladder and contents to pathology) Operation and Findings: Patient was taken to the operating room and placed on the operating table in the supine position. After an adequate level of general endotracheal anesthesia was achieved the abdomen was prepped and draped in the usual fashion. Time-out was taken, confirming the correct patient, site, and procedure to be performed. Skin and subcutaneous tissue was infiltrated with local anesthetic and incision made in the umbilicus. The peritoneal cavity was directly visualized. A 12 mm balloon trocar was inserted and the balloon inflated. The abdomen was insufflated. The patient was placed in reverse Trendelenburg position. Three 5 mm trocars were then placed, with the first to the right of the falciform ligament and the second and third in the right subcostal region. All entered the abdominal cavity under direct vision uneventfully. The fundus of the gallbladder was grasped and retracted upward. Omental adhesions were taken down off of the gallbladder with both electrocautery and blunt dissection. The infundibulum was retracted laterally. The cystic artery was circumferentially dissected, doubly clipped proximally, singly clipped on the gallbladder side and divided. The cystic duct was circumferentially dissected as well and a single clip placed on the gallbladder side. A cystic ductotomy was made and an Jewell cholangiocatheter brought in via separate stab incision. A cholangiocatheter was inserted and secured in the to the cystic duct with an Endo Clip. Cholangiogram was obtained as the patient had ERCP the previous day and as there was some difficulty with cannulating the duct, the undersigned wanted to confirm that all filling defects were cleared. Real-time cholangio-gram was obtained under fluoroscopy; however, while the contrast filled the common bile duct, common hepatic duct, right and left hepatic ducts and some of the right hepatic radicles, no contrast flowed into the duodenum. 1 mg of glucagon was given IV and after waiting 3-5 minutes, repeat cholangiogram failed to demonstrate any flow of contrast into the duodenum. This was felt to be due to swelling at the papilla and thus no further manipulations were made. The cholangiocatheter was removed and the cystic duct divided. The cystic duct was secured with a 0 PDS Endoloop and 3 endoclips to help minimize the chance of any bile leakage while the papillary swelling resolved. The gallbladder was then dissected off of the liver bed with electrodissection. The gallbladder was placed into an Endo Catch device and removed via the umbilical port while observing via the upper 5 mm trocar site. The liver bed was made hemostatic with electrocautery. The cystic artery stump and cystic duct stump are seen to be clean and dry. All irrigation was aspirated from the abdominal cavity. Insufflation was discontinued and the upper abdominal trocars removed under direct vision. During desufflation, no bleeding was noted from the upper abdominal trocar sites. The laparoscope and umbilical port were then removed. The fascia was closed in the umbilicus with two figure- of-eight 0 Vicryl sutures and a single simple interrupted 0 Vicryl suture. The remaining local anesthetic was injected into each of the trocar sites. The skin was closed at each of the trocar sites with 4-0 Vicryl in an interrupted buried fashion. All sites were dressed with Steri-Strips. The patient was extubated and taken back to the recovery room in stable condition. Sponge and needle counts were reported to be correct. Patient tolerated the procedure extremely well. Documented By: Shin Joy MD 08/29/18 1016 Assessment and Plan - Assessment (1) Status post laparoscopic cholecystectomy Code(s): Z90.49 - Acquired absence of other specified parts of digestive tract Status: Acute (2) Cholelithiasis Code(s): K80.20 - Calculus of gallbladder without cholecystitis without obstruction Status: Acute Plan: POD #2 lap cholecystectomy; still painful Lipase normal; T bili normal; transaminases normalizing Will need to continue IV pain meds for now; discharge in next day or so (3) Common bile duct dilatation Code(s): K83.8 - Other specified diseases of biliary tract Status: Acute - Plan Discussed Condition With: Patient Nurse - Attending Attestation I attest that I had a [id number] encounter with the patient on the same day, and personally performed and documented my assessment and findings in the medical record. The following services were provided during this hospital visit: Chart data review, vital sign assessments/reviewing monitor data Review of consultation notes if present Medication orders/review and/or management Ordering and/or reviewing lab tests Ordering and/or interpreting/reviewing x-rays and/or diagnostic studies Care of the patient and discussion of the patient with the care team Documentation time To help prompt me to consider important information that might be impacting today's encounter and assessment, Information from prior notes written by myself or my colleagues may have been "brought forward/copy and pasted" into today's note. (2) Cholelithiasis Qualifiers: Cholelithiasis location: gallbladder Cholecystitis presence: without cholecystitis Biliary obstruction: without biliary obstruction Qualified Code( s): K80.20 - Calculus of gallbladder without cholecystitis without obstruction
[2018-08-31] MEDS: Senna/Docusate Sodium 8.6/50 MG Tablet PO SCH ×2 (09:39→21:51)
[2018-08-31] MEDS: metroNIDAZOLE 500 MG Tablet PO SCH ×3 (09:39→16:44)
--- NOTE | 2018-08-31 11:53 | P.PNIM ---
Subjective Interval history: This is a 33-year-old female with no significant PMH who presented to the ER with complaints of left flank pain in addition to fever and vaginal discharge x2 days. Pain is intermittent, sharp, 10/10, non-radiating. Reports h/o IVDU, however no use in several months. On arrival, BP 101/52, HR 115, O2 sat 97% on RA, Temp 100.5. WBC 20.3. INR 1.1. K+ 3.0. Creatinine 1.11. UA positive for UTI. +Clue Cells. Chlamydia/Gonorrhoeae negative, Monoscreen negative. CT Abdomen/Pelvis with cholelithiasis, dilatation of CBD but no stone identified , recommendation for MRCP. CXR negative. S/p Rocephin and Flagyl PO in ER. Patient actually tolerated Ceftriaxone IV. We will continue Ceftriaxone 2g and D /C Levaquin. Also, continue Flagyl for BV. Discussed with Dr. Joy (Gen Surg) who is planning to perform cholecystectomy at 8AM on 08/29/2018. Patient can likely be discharged later after surgery per Dr. Joy. Additional information: Patient seen/examined. Came in with abdominal pain, fever, chills. Imaging studies indicate CBD dilatation, acute cholecystitis. We consulted GI and GS. GI DID ERCP 08-28. Pt is NPO currently. She was started on Flagyl due to BV. We will change Flagyl to 500mg Q8 and add Levaquin 750mg Qday. Levaquin + Flagyl will give Gram negative and anaerobic coverage. Patient is allergic to PCN. 08-29 HAD ERCP WITH STENT PLACEMENT AND SPHINCTEROTOMY PERFORMED BY GI ON 08-28 HAD LAP CHOLECYSTECTOMY TODAY BY SURGERY A.m. labs Pain control per surgery Discussed with RN and patient and case management 11-4 PATIENT IS STILL HAVING LOTS OF PAIN STATES PASSING GAS NO BOWEL MOVEMENT NOT EATING A FULL DIET YET DW RN AND PT AND CM AM LABS HOPEFULLY HOME IN NEXT 24 TO 48HOURS MAY BE A DIFFICULT DISCHARGE DUE TO PAIN WITH HX OF IVDU 11-5 NOT CLEARED BY SURGERY STATES "I AM IN TOO MUCH PAIN TO GO HOME" HAD BMS TODAY PASSING GAS HOPEFULLY HOME TOMORROW AM LABS DW RN AND PT AND CM Physical Exam Vital signs: Vital Signs 08/30/18 12:00 08/30/18 13:00 08/30/18 14:06 Temperature 98.8 F Pulse Rate 77 77 Respiratory Rate 18 16 Blood Pressure 120/56 L Pulse Oximetry 92 L 08/30/18 16:00 08/30/18 17:00 08/30/18 18:24 Temperature 99.5 F Pulse Rate 68 68 Respiratory Rate 18 16 Blood Pressure 118/79 Pulse Oximetry 94 L 08/30/18 20:00 08/31/18 00:00 08/31/18 00:07 Temperature 99.6 F 98.8 F Pulse Rate 73 73 60 Respiratory Rate 16 17 Blood Pressure 103/68 106/75 Pulse Oximetry 93 L 91 L 08/31/18 04:00 08/31/18 08:00 Temperature 99.3 F 98 F Pulse Rate 70 56 L Respiratory Rate 18 18 Blood Pressure 121/79 127/68 Pulse Oximetry 90 L 93 L Intake & Output 08/30/18 08/31/18 08/31/18 18:59 06:59 18:59 Intake Total 2100 / 2100 1200 / 1200 100 / 100 Balance 2100 / 2100 1200 / 1200 100 / 100 Weight 75 kg Intake: IV 2100 / 2100 1200 / 1200 100 / 100 NS Inj 1,000 ML @ 150 mls/hr IV 2000 / 2000 1000 / 1000 .CONT .Q6H40M [facility] Rx#:[id number] Ofirmev Inj 1,000 mg In 100 ml 100 / 100 100 / 100 100 / 100 @ 400 mls/hr IV.SIG Q6H [facility] Rx# :[id number] Rocephin Inj 2,000 MG In NS Inj 100 / 100 100 ML @ 200 mls/hr IV.SIG Q24H [facility] Rx#:[id number] Other: # Voids 3 3 Date of Last Bowel Movement 08/28/18 08/28/18 08/28/18 Narrative: GENERAL: Pleasant young white female in no acute distress. Pain out of proportion to what is expected SKIN: warm and dry. Head is normocephalic atraumatic HEENT: PERRLA EOMI tongue is midline Neck is supple there is no JVD good range of motion CARDIOVASCULAR: Regular rate and rhythm. S1-S2 no S3 or S4 RESPIRATORY: No obvious rhonchi or wheezing. Clear to auscultation. Breath sounds equal bilaterally. GASTROINTESTINAL: Abdomen soft, mild tenderness to palpation, nondistended. BS normal. MUSCULOSKELETAL: Extremities without clubbing, cyanosis, or edema. No obvious deformities. NEUROLOGICAL: Awake, alert and oriented x4. PSYCHIATRIC: Appropriate mood and affect. Insight and judgment normal. Results - Labs CBC & Chem 7: 08/31/18 05:09 08/31/18 05:09 Laboratory Results - last 24 hr 08/31/18 08/31/18 05:09 05:09 WBC 8.9 RBC 3.46 L Hgb 10.5 L Hct 31.4 L MCV 90.8 MCH 30.4 MCHC 33.5 RDW 14.1 Plt Count 249 MPV 8.1 Neut % (Auto) 77.6 H Lymph % (Auto) 15.2 [place] % (Auto) 6.4 Eos % (Auto) 0.6 Baso % (Auto) 0.2 Neut # (Auto) 6.9 Lymph # (Auto) 1.4 [place] # (Auto) 0.6 Eos # (Auto) 0.1 Baso # (Auto) 0.0 WBC Differential . Differential Comment Auto diff final Sodium 143 Potassium 3.4 L Chloride 111 H Carbon Dioxide 25.1 Anion Gap 7 BUN 9 Creatinine 0.52 Estimated GFR Greater than 89 Random Glucose 82 Calcium 7.1 L* Prot Corrected Calcium 8.3 L Phosphorus 2.6 Magnesium 1.5 Total Bilirubin 0.8 Direct Bilirubin 0.6 H Indirect Bilirubin 0.2 AST 66 H ALT 77 H Alkaline Phosphatase 251 H Total Protein 4.9 L Albumin 1.8 L Amylase 31 Lipase 160 Microbiology 08/27/18 22:35 Blood - Peripheral Aerobic Blood Culture - Preliminary No growth in 4 days 08/27/18 22:35 Blood - Peripheral Anaerobic Blood Culture - Preliminary No growth in 4 days 08/27/18 22:40 Blood - Peripheral Aerobic Blood Culture - Preliminary No growth in 4 days 08/27/18 22:40 Blood - Peripheral Anaerobic Blood Culture - Preliminary No growth in 4 days - Imaging Impressions Chest X-Ray 08/31/18 00:00 CONCLUSION: Hazy bibasilar pleural-parenchymal opacities. - Procedures Most importantly patient will need to have the pancreatic stent removed if it does not fall out by itself within the next week or so Patient to have a KUB of the abdomen in 1 week and based on that we will make a decision about going in to remove the pancreatic stent Addendum Documented By: Juan Bass MD 08/28/18 [id number] Addendum Signed By: <Electronically signed by Juan Bass MD> 12/14 1655 Date of procedure: 08/28/18 Pre-op diagnosis: Choledocholithiasis as evidenced on MRCP Procedure: PROCEDURE PERFORMED [] PROCEDURE: The procedure, risks and benefits were discussed with Patient/POA and informed consent was obtained. Anesthesia sedated Patient with Diprivan. Patient was placed in prone position. ERCP: Patient was placed in a prone position. The Pentax videoscope was introduced through the oropharynx and advanced to the second portion of the duodenum where the ampula was identified. FINDINGS: The ampulla appeared to be unremarkable and within normal limits initial cannulation was that of the pancreatic duct several cannulations were made of the pancreatic duct and a such a 5 [place] 3 cm pancreatic stent was placed to reduce risk of pancreatitis and indomethacin 100 mg suppositories were given needle-knife was performed in order to allow for bile duct cannulation again several attempts were made with no cannulation then Kinevac was given but no secretions were noted finally prior to giving up I was able to obtain cannulation of the common bile duct which appeared to be significantly dilated to about 15 mm with a gradual tapering towards the ampulla 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 a generous sphincterotomy was performed then using the 15 mm balloon we were able to perform 2 sweeps with no stones noted to be coming out and no filling defects were seen in the bile duct and subsequently the procedure was terminated ESTIMATED BLOOD LOSS: None SPECIMENS REMOVED: None COMPLICATIONS: None 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 Documented By: Juan Bass MD (1) Choledocholithiasis with acute cholecystitis with obstruction (2) Cholelithiasis (3) Common bile duct dilatation - Postoperative Diagnosis (1) Choledocholithiasis with acute cholecystitis with obstruction Date of procedure: 08/29/18 Procedure: Laparoscopic cholecystectomy with intraoperative cholangiogram with intraoperative use of fluoroscopy Surgeon: Shin Joy MD Cable Tower Operator: Shoshana Christensen CFA Estimated blood loss (mL): 50 IV fluids (mL): 1,100 Pathology: other (Gallbladder and contents to pathology) Operation and Findings: Patient was taken to the operating room and placed on the operating table in the supine position. After an adequate level of general endotracheal anesthesia was achieved the abdomen was prepped and draped in the usual fashion. Time-out was taken, confirming the correct patient, site, and procedure to be performed. Skin and subcutaneous tissue was infiltrated with local anesthetic and incision made in the umbilicus. The peritoneal cavity was directly visualized. A 12 mm balloon trocar was inserted and the balloon inflated. The abdomen was insufflated. The patient was placed in reverse Trendelenburg position. Three 5 mm trocars were then placed, with the first to the right of the falciform ligament and the second and third in the right subcostal region. All entered the abdominal cavity under direct vision uneventfully. The fundus of the gallbladder was grasped and retracted upward. Omental adhesions were taken down off of the gallbladder with both electrocautery and blunt dissection. The infundibulum was retracted laterally. The cystic artery was circumferentially dissected, doubly clipped proximally, singly clipped on the gallbladder side and divided. The cystic duct was circumferentially dissected as well and a single clip placed on the gallbladder side. A cystic ductotomy was made and an Jewell cholangiocatheter brought in via separate stab incision. A cholangiocatheter was inserted and secured in the to the cystic duct with an Endo Clip. Cholangiogram was obtained as the patient had ERCP the previous day and as there was some difficulty with cannulating the duct, the undersigned wanted to confirm that all filling defects were cleared. Real-time cholangio-gram was obtained under fluoroscopy; however, while the contrast filled the common bile duct, common hepatic duct, right and left hepatic ducts and some of the right hepatic radicles, no contrast flowed into the duodenum. 1 mg of glucagon was given IV and after waiting 3-5 minutes, repeat cholangiogram failed to demonstrate any flow of contrast into the duodenum. This was felt to be due to swelling at the papilla and thus no further manipulations were made. The cholangiocatheter was removed and the cystic duct divided. The cystic duct was secured with a 0 PDS Endoloop and 3 endoclips to help minimize the chance of any bile leakage while the papillary swelling resolved. The gallbladder was then dissected off of the liver bed with electrodissection. The gallbladder was placed into an Endo Catch device and removed via the umbilical port while observing via the upper 5 mm trocar site. The liver bed was made hemostatic with electrocautery. The cystic artery stump and cystic duct stump are seen to be clean and dry. All irrigation was aspirated from the abdominal cavity. Insufflation was discontinued and the upper abdominal trocars removed under direct vision. During desufflation, no bleeding was noted from the upper abdominal trocar sites. The laparoscope and umbilical port were then removed. The fascia was closed in the umbilicus with two figure- of-eight 0 Vicryl sutures and a single simple interrupted 0 Vicryl suture. The remaining local anesthetic was injected into each of the trocar sites. The skin was closed at each of the trocar sites with 4-0 Vicryl in an interrupted buried fashion. All sites were dressed with Steri-Strips. The patient was extubated and taken back to the recovery room in stable condition. Sponge and needle counts were reported to be correct. Patient tolerated the procedure extremely well. Documented By: Shin Joy MD 08/29/18 1016 Assessment and Plan - Assessment (1) Sepsis Code(s): A41.9 - Sepsis, unspecified organism Status: Acute (2) UTI (urinary tract infection) Code(s): N39.0 - Urinary tract infection, site not specified Status: Acute (3) Bacterial vaginosis Code(s): N76.0 - Acute vaginitis; B96.89 - Other specified bacterial agents as the cause of diseases classified elsewhere Status: Acute (4) Cholelithiasis Code(s): K80.20 - Calculus of gallbladder without cholecystitis without obstruction Status: Acute - Plan 1. Sepsis: Temp 100.5, HR 114, WBC 20.3, Source-UTI, S/p Blood cultures, continue IV Rocephin, follow up cultures, IVF for hydration. 2. UTI: U/a w/ UTI, follow up cultures, continue IVF, IV Rocephin, monitor I/O , 3. Cholelithiasis: CT Abd/Pelvis w/ cholelithiasis and CBD dilatation, images reviewed, will check MRCP-IUD in place +copper. Consult GI/Gen Sx as needed depending on results of imaging. Status post ERCP and stent placement and sphincterotomy August 28 status post laparoscopic cholecystectomy with intraoperative cholangiogram with intraoperative use of fluoroscopy by Dr. Joy on August 29 4. Bacterial Vaginosis: S/p Flagyl PO in ER, will continue w/ Flagyl 500mg bid x7 days. 5. DVT Prophylaxis: SCD/Teds Remains on Flagyl and Rocephin Pain control per surgery A.m. labs Await clearance from surgery and GI Discussed with RN and patient and case management Started on oral pain medications Still having lots of pain But has a history of IVDU NOT CLEARED BY SURGERY HOPEFULLY HOME TOMORROW Code Status: FULL CODE Discussed Condition With: RN AND PT AND CM Discharge Planning: Pending GI and surgical clearance And pain control (1) Sepsis Qualifiers: Sepsis type: sepsis due to unspecified organism Qualified Code(s): A41.9 - Sepsis, unspecified organism (2) UTI (urinary tract infection) Qualifiers: Urinary tract infection type: site unspecified Hematuria presence: with hematuria Qualified Code(s): N39.0 - Urinary tract infection, site not specified; R31.9 - Hematuria, unspecified (4) Cholelithiasis Qualifiers: Cholelithiasis location: gallbladder Cholecystitis presence: without cholecystitis Biliary obstruction: without biliary obstruction Qualified Code( s): K80.20 - Calculus of gallbladder without cholecystitis without obstruction
[2018-09-01] MEDS: Zolpidem Tartrate 5 MG Tablet PO PRN ×2 (00:35→20:46)
[2018-09-01] MEDS: metroNIDAZOLE 500 MG Tablet PO SCH ×3 (00:35→15:33)
[2018-09-01] MEDS: Morphine Inj 4 MG/ML Vial IV.PUSH PRN ×6 (02:16→22:29)
[2018-09-01] MEDS: oxyCODONE/Acetaminophen 10/325 Tablet PO PRN ×3 (04:22→17:40)
[2018-09-01 06:48] LABS: Baso # (Auto) 0.1 th/mm3 (0.0-0.2); Baso % (Auto) 0.5 % (0.0-2.0); Eos # (Auto) 0.1 th/mm3 (0.0-0.4); Eos % (Auto) 0.7 % (0.0-4.0); Hematocrit 35.2 % (35.0-46.0); Hemoglobin 11.8 gm/dL (11.6-15.3); Lymph # (Auto) 1.3 th/mm3 (1.0-4.8); Mean Corpuscular HGB Conc 33.5 % (32.0-36.0); Mean Corpuscular Hemoglobin 30.4 pg (27.0-34.0); Mean Corpuscular Volume 90.7 fL (80.0-100.0); Mean Platelet Volume 8.2 fL (7.0-11.0); Mono # (Auto) 0.5 th/mm3 (0.0-0.9); Mono % (Auto) 4.2 % (0.0-8.0); Neut # (Auto) 8.9 th/mm3 (1.8-7.7); Neut % (Auto) 82.6 % (16.0-70.0); Platelet Count 296 th/mm3 (150-450); Red Blood Count 3.88 mil/mm3 (4.00-5.30); Red Cell Distribution Width 13.9 % (11.6-17.2); White Blood Count 10.8 th/mm3 (4.0-11.0)
[2018-09-01 07:11] LABS: Albumin 1.9 g/dL (3.4-5.0)
[2018-09-01 07:13] LABS: Total Protein 5.3 g/dL (6.4-8.2)
[2018-09-01 07:22] LABS: Alanine Aminotransferase 51 U/L (10-53); Albumin 1.9 g/dL (3.4-5.0); Alkaline Phosphatase 231 U/L (45-117); Anion Gap 9 meq/L (5-15); Aspartate Aminotransferase 25 U/L (15-37); Blood Urea Nitrogen 5 mg/dL (7-18); Calcium 7.3 mg/dL (8.5-10.1); Carbon Dioxide 25.1 meq/L (21.0-32.0); Chloride 107 meq/L (98-107); Glomerular Filtration Rate Greater Than 89 mL/min (>89); Glucose,Random 72 mg/dL (74-106); Magnesium 1.5 mg/dL (1.5-2.5); Phosphorus 3.5 mg/dL (2.5-4.9); Potassium 3.1 meq/L (3.5-5.1); Sodium 141 meq/L (136-145); Total Protein 5.4 g/dL (6.4-8.2)
[2018-09-01] MEDS: Senna/Docusate Sodium 8.6/50 MG Tablet PO SCH ×2 (10:37→20:46)
--- NOTE | 2018-09-01 10:54 | P.PN ---
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 K+ 3.0. UA positive for UTI. +Clue Cells. Chlamydia/Gonorrhoeae negative, Monoscreen negative. CT Abdomen/Pelvis with cholelithiasis, dilatation of CBD but no stone identified , recommendation for MRCP. CXR negative. S/p Rocephin and Flagyl PO in ER. as per General surgery recommended for Cholecystectomy, for Acute cholecystitis. GI DID ERCP 08-28. Pt is NPO currently. She was started on Flagyl due to BV. We will change Flagyl to 500mg Q8 and add Levaquin 750mg Qday. Levaquin + Flagyl will give Gram negative and anaerobic coverage. Patient is allergic to PCN. 08/29: Had ERCP wit stent placement and sphincterotomy 08/28, had Lap cholecystectomy 08/29, not yet cleared by General Surgery. 09/01: Seen in her bedroom, no nausea, vomit or diarrhea, with Diagnosis of Cholelithiasis, Common bile duct dilatation, status post Laparoscopic cholecystectomy with intraoperative cholangiogram with intraoperative use of fluoroscopy POD#3, Status post ERCP, likely post procedural pancreatitis, plan to discharge tomorrow. Physical Exam Vital signs: Vital Signs 08/31/18 12:00 08/31/18 16:00 08/31/18 20:00 Temperature 99.6 F 99.6 F 100.5 F H Pulse Rate 66 58 L 60 Respiratory Rate 18 18 18 Blood Pressure 118/75 128/79 131/77 Pulse Oximetry 91 L 93 L 97 08/31/18 22:21 09/01/18 00:00 09/01/18 02:18 Temperature 99.2 F Pulse Rate 69 Respiratory Rate 18 18 18 Blood Pressure 114/71 Pulse Oximetry 96 09/01/18 04:00 09/01/18 04:52 09/01/18 08:00 Temperature 98.8 F 98.6 F Pulse Rate 58 L 55 L Respiratory Rate 17 18 17 Blood Pressure 124/78 130/63 Pulse Oximetry 97 91 L Intake & Output 08/31/18 09/01/18 09/01/18 18:59 06:59 18:59 Intake Total 200 / 200 100 / 100 Balance 200 / 200 100 / 100 Weight 74.8 kg Intake: IV 200 / 200 100 / 100 Ofirmev Inj 1,000 mg In 100 ml 200 / 200 @ 400 mls/hr IV.SIG Q6H [facility] Rx# :[id number] Rocephin Inj 2,000 MG In NS Inj 100 / 100 100 ML @ 200 mls/hr IV.SIG Q24H [facility] Rx#:[id number] Other: # Voids 5 Date of Last Bowel Movement 08/28/18 08/31/18 Narrative: GENERAL: No acute distress. Neck is supple there is no JVD RESPIRATORY: No obvious rhonchi or wheezing. GASTROINTESTINAL: Abdomen soft MUSCULOSKELETAL: Extremities without clubbing, cyanosis, or edema. NEUROLOGICAL: Awake, alert and oriented x4. Results - Labs CBC & Chem 7: 09/01/18 06:08 09/01/18 06:08 Laboratory Results - last 24 hr 09/01/18 09/01/18 09/01/18 06:08 06:08 06:08 WBC 10.8 RBC 3.88 L Hgb 11.8 Hct 35.2 MCV 90.7 MCH 30.4 MCHC 33.5 RDW 13.9 Plt Count 296 MPV 8.2 Neut % (Auto) 82.6 H Lymph % (Auto) 12.0 [place] % (Auto) 4.2 Eos % (Auto) 0.7 Baso % (Auto) 0.5 Neut # (Auto) 8.9 H Lymph # (Auto) 1.3 [place] # (Auto) 0.5 Eos # (Auto) 0.1 Baso # (Auto) 0.1 WBC Differential . Differential Comment Auto diff final Sodium 141 Potassium 3.1 L Chloride 107 Carbon Dioxide 25.1 Anion Gap 9 BUN 5 L Creatinine 0.49 L Estimated GFR Greater than 89 Random Glucose 72 L Calcium 7.3 L* Prot Corrected Calcium 8.2 L Phosphorus 3.5 Magnesium 1.5 Total Bilirubin 0.7 0.7 Direct Bilirubin 0.5 H Indirect Bilirubin 0.2 AST 20 25 ALT 53 51 Alkaline Phosphatase 228 H 231 H Total Protein 5.3 L 5.4 L Albumin 1.9 L 1.9 L Amylase 28 Microbiology 08/27/18 22:35 Blood - Peripheral Aerobic Blood Culture - Preliminary No growth in 4 days 08/27/18 22:35 Blood - Peripheral Anaerobic Blood Culture - Preliminary No growth in 4 days 08/27/18 22:40 Blood - Peripheral Aerobic Blood Culture - Preliminary No growth in 4 days 08/27/18 22:40 Blood - Peripheral Anaerobic Blood Culture - Preliminary No growth in 4 days - Imaging Abdomen/Pelvis CT 08/27/18 22:06 CONCLUSION: Cholelithiasis with dilatation of common bile duct but no discrete stone identified. MRCP could be performed for further evaluation if clinically indicated. Cholangiopancreatography MRI 08/28/18 00:00 CONCLUSION: 1. There is extrahepatic bile duct dilatation, as above with likely 2 tiny stones in the distal common duct measuring between 2 and 3 mm. 2. Gallbladder is distended and contains multiple stones. However, the gallbladder demonstrates no wall thickening or inflammatory change. 3. There is significant left perinephric inflammation and inflammation extending in the inferior perinephric space. Prior CT demonstrated questionable abnormal enhancement the lower pole. These findings raise suspicion for pyelonephritis. Suggest correlating with clinical examination and a urinalysis. GI Procedure 08/28/18 00:00 CONCLUSION: Dilated common bile duct. Please refer to endoscopist report for further details. Cholangiogram,Operative 08/29/18 00:00 The common duct and intrahepatic biliary ducts are opacified. Common duct appears dilated. It is again tapered distally. Possible faint filling defects in the duct distally on one of the views. CONCLUSION: Dilated common duct again seen. Please refer to surgical report for further details. Chest X-Ray 08/31/18 00:00 CONCLUSION: Hazy bibasilar pleural-parenchymal opacities. - Procedures Most importantly patient will need to have the pancreatic stent removed if it does not fall out by itself within the next week or so Patient to have a KUB of the abdomen in 1 week and based on that we will make a decision about going in to remove the pancreatic stent Addendum Documented By: Juan Bass MD 08/28/[id number] Addendum Signed By: <Electronically signed by Juan Bass MD> 12/14 Date of procedure: 08/28/18 Pre-op diagnosis: Choledocholithiasis as evidenced on MRCP Procedure: PROCEDURE PERFORMED [] PROCEDURE: The procedure, risks and benefits were discussed with Patient/POA and informed consent was obtained. Anesthesia sedated Patient with Diprivan. Patient was placed in prone position. ERCP: Patient was placed in a prone position. The Pentax videoscope was introduced through the oropharynx and advanced to the second portion of the duodenum where the ampula was identified. FINDINGS: The ampulla appeared to be unremarkable and within normal limits initial cannulation was that of the pancreatic duct several cannulations were made of the pancreatic duct and a such a 5 Prydeinig 3 cm pancreatic stent was placed to reduce risk of pancreatitis and indomethacin 100 mg suppositories were given needle-knife was performed in order to allow for bile duct cannulation again several attempts were made with no cannulation then Kinevac was given but no secretions were noted finally prior to giving up I was able to obtain cannulation of the common bile duct which appeared to be significantly dilated to about 15 mm with a gradual tapering towards the ampulla 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 a generous sphincterotomy was performed then using the 15 mm balloon we were able to perform 2 sweeps with no stones noted to be coming out and no filling defects were seen in the bile duct and subsequently the procedure was terminated ESTIMATED BLOOD LOSS: None SPECIMENS REMOVED: None COMPLICATIONS: None 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 Documented By: Juan Bass MD (1) Choledocholithiasis with acute cholecystitis with obstruction (2) Cholelithiasis (3) Common bile duct dilatation - Postoperative Diagnosis (1) Choledocholithiasis with acute cholecystitis with obstruction Date of procedure: 08/29/18 Procedure: Laparoscopic cholecystectomy with intraoperative cholangiogram with intraoperative use of fluoroscopy Surgeon: Shin Joy MD Pin Game Machine Inspector: Shoshana Christensen CFA Estimated blood loss (mL): 50 IV fluids (mL): 1,100 Pathology: other (Gallbladder and contents to pathology) Operation and Findings: Patient was taken to the operating room and placed on the operating table in the supine position. After an adequate level of general endotracheal anesthesia was achieved the abdomen was prepped and draped in the usual fashion. Time-out was taken, confirming the correct patient, site, and procedure to be performed. Skin and subcutaneous tissue was infiltrated with local anesthetic and incision made in the umbilicus. The peritoneal cavity was directly visualized. A 12 mm balloon trocar was inserted and the balloon inflated. The abdomen was insufflated. The patient was placed in reverse Trendelenburg position. Three 5 mm trocars were then placed, with the first to the right of the falciform ligament and the second and third in the right subcostal region. All entered the abdominal cavity under direct vision uneventfully. The fundus of the gallbladder was grasped and retracted upward. Omental adhesions were taken down off of the gallbladder with both electrocautery and blunt dissection. The infundibulum was retracted laterally. The cystic artery was circumferentially dissected, doubly clipped proximally, singly clipped on the gallbladder side and divided. The cystic duct was circumferentially dissected as well and a single clip placed on the gallbladder side. A cystic ductotomy was made and an Jewell cholangiocatheter brought in via separate stab incision. A cholangiocatheter was inserted and secured in the to the cystic duct with an Endo Clip. Cholangiogram was obtained as the patient had ERCP the previous day and as there was some difficulty with cannulating the duct, the undersigned wanted to confirm that all filling defects were cleared. Real-time cholangio-gram was obtained under fluoroscopy; however, while the contrast filled the common bile duct, common hepatic duct, right and left hepatic ducts and some of the right hepatic radicles, no contrast flowed into the duodenum. 1 mg of glucagon was given IV and after waiting 3-5 minutes, repeat cholangiogram failed to demonstrate any flow of contrast into the duodenum. This was felt to be due to swelling at the papilla and thus no further manipulations were made. The cholangiocatheter was removed and the cystic duct divided. The cystic duct was secured with a 0 PDS Endoloop and 3 endoclips to help minimize the chance of any bile leakage while the papillary swelling resolved. The gallbladder was then dissected off of the liver bed with electrodissection. The gallbladder was placed into an Endo Catch device and removed via the umbilical port while observing via the upper 5 mm trocar site. The liver bed was made hemostatic with electrocautery. The cystic artery stump and cystic duct stump are seen to be clean and dry. All irrigation was aspirated from the abdominal cavity. Insufflation was discontinued and the upper abdominal trocars removed under direct vision. During desufflation, no bleeding was noted from the upper abdominal trocar sites. The laparoscope and umbilical port were then removed. The fascia was closed in the umbilicus with two figure- of-eight 0 Vicryl sutures and a single simple interrupted 0 Vicryl suture. The remaining local anesthetic was injected into each of the trocar sites. The skin was closed at each of the trocar sites with 4-0 Vicryl in an interrupted buried fashion. All sites were dressed with Steri-Strips. The patient was extubated and taken back to the recovery room in stable condition. Sponge and needle counts were reported to be correct. Patient tolerated the procedure extremely well. Documented By: Shin Joy MD 08/29/18 1016 Assessment and Plan - Assessment (1) Sepsis Code(s): A41.9 - Sepsis, unspecified organism Status: Acute (2) UTI (urinary tract infection) Code(s): N39.0 - Urinary tract infection, site not specified Status: Acute (3) Bacterial vaginosis Code(s): N76.0 - Acute vaginitis; B96.89 - Other specified bacterial agents as the cause of diseases classified elsewhere Status: Acute (4) Cholelithiasis Code(s): K80.20 - Calculus of gallbladder without cholecystitis without obstruction Status: Acute - Plan 1. Sepsis: Temp 100.5, HR 114, WBC 20.3, Source-UTI, S/p Blood cultures, continue IV Rocephin, follow up cultures, IVF for hydration. 2. UTI secondary to E Coli on Ceftriaxone. 3. Cholelithiasis: CT Abd/Pelvis w/ cholelithiasis and CBD dilatation, images reviewed, will check MRCP-IUD in place +copper. Status post ERCP and stent placement and sphincterotomy, with Diagnosis of Cholelithiasis, Common bile duct dilatation, status post Laparoscopic cholecystectomy with intraoperative cholangiogram with intraoperative use of fluoroscopy POD#3, Likely post procedural Pancreatitis, will discharge in am tomorrow. 4. Bacterial Vaginosis: S/p Flagyl PO in ER, will continue w/ Flagyl 500mg bid x7 days. 5. history of IVDU. DVT Prophylaxis: SCD/Teds Code Status: Full code. Discussed Condition With: patient and Nurse Miss Orosco Discharge Planning: Expected in am tomorrow. (1) Sepsis Qualifiers: Sepsis type: sepsis due to unspecified organism Qualified Code(s): A41.9 - Sepsis, unspecified organism (2) UTI (urinary tract infection) Qualifiers: Urinary tract infection type: site unspecified Hematuria presence: with hematuria Qualified Code(s): N39.0 - Urinary tract infection, site not specified; R31.9 - Hematuria, unspecified (4) Cholelithiasis Qualifiers: Cholelithiasis location: gallbladder Cholecystitis presence: without cholecystitis Biliary obstruction: without biliary obstruction Qualified Code( s): K80.20 - Calculus of gallbladder without cholecystitis without obstruction
--- NOTE | 2018-09-01 12:42 | P.PNGS ---
Subjective Interval history: Resting in bed Would like to go home today but continues to require IV pain medications Less painful than yesterday, but still using IV pain meds. Physical Exam Vital signs: Vital Signs 08/31/18 16:00 08/31/18 20:00 08/31/18 22:21 Temperature 99.6 F 100.5 F H Pulse Rate 58 L 60 Respiratory Rate 18 18 18 Blood Pressure 128/79 131/77 Pulse Oximetry 93 L 97 09/01/18 00:00 09/01/18 02:18 09/01/18 04:00 Temperature 99.2 F 98.8 F Pulse Rate 69 58 L Respiratory Rate 18 18 17 Blood Pressure 114/71 124/78 Pulse Oximetry 96 97 09/01/18 04:52 09/01/18 08:00 09/01/18 12:00 Temperature 98.6 F 98.7 F Pulse Rate 55 L 58 L Respiratory Rate 18 17 17 Blood Pressure 130/63 143/78 H Pulse Oximetry 91 L 95 Intake & Output 08/31/18 09/01/18 09/01/18 18:59 06:59 18:59 Intake Total 200 / 200 100 / 100 Balance 200 / 200 100 / 100 Weight 74.8 kg Intake: IV 200 / 200 100 / 100 Ofirmev Inj 1,000 mg In 100 ml 200 / 200 @ 400 mls/hr IV.SIG Q6H [facility] Rx# :[id number] Rocephin Inj 2,000 MG In NS Inj 100 / 100 100 ML @ 200 mls/hr IV.SIG Q24H [facility] Rx#:[id number] Other: # Voids 5 Date of Last Bowel Movement 08/28/18 08/31/18 Narrative: Alert and awake Abd: soft; incision c/d/i; continues to have epigastric tenderness to palpation Results - Labs 09/01/18 06:08 09/01/18 06:08 Laboratory Results - last 24 hr 09/01/18 09/01/18 09/01/18 06:08 06:08 06:08 WBC 10.8 RBC 3.88 L Hgb 11.8 Hct 35.2 MCV 90.7 MCH 30.4 MCHC 33.5 RDW 13.9 Plt Count 296 MPV 8.2 Neut % (Auto) 82.6 H Lymph % (Auto) 12.0 [place] % (Auto) 4.2 Eos % (Auto) 0.7 Baso % (Auto) 0.5 Neut # (Auto) 8.9 H Lymph # (Auto) 1.3 [place] # (Auto) 0.5 Eos # (Auto) 0.1 Baso # (Auto) 0.1 WBC Differential . Differential Comment Auto diff final Sodium 141 Potassium 3.1 L Chloride 107 Carbon Dioxide 25.1 Anion Gap 9 BUN 5 L Creatinine 0.49 L Estimated GFR Greater than 89 Random Glucose 72 L Calcium 7.3 L* Prot Corrected Calcium 8.2 L Phosphorus 3.5 Magnesium 1.5 Total Bilirubin 0.7 0.7 Direct Bilirubin 0.5 H Indirect Bilirubin 0.2 AST 20 25 ALT 53 51 Alkaline Phosphatase 228 H 231 H Total Protein 5.3 L 5.4 L Albumin 1.9 L 1.9 L Amylase 28 - Imaging Imaging: ITS Impressions Abdomen/Pelvis CT 08/27/18 22:06 CONCLUSION: Cholelithiasis with dilatation of common bile duct but no discrete stone identified. MRCP could be performed for further evaluation if clinically indicated. Cholangiopancreatography MRI 08/28/18 00:00 CONCLUSION: 1. There is extrahepatic bile duct dilatation, as above with likely 2 tiny stones in the distal common duct measuring between 2 and 3 mm. 2. Gallbladder is distended and contains multiple stones. However, the gallbladder demonstrates no wall thickening or inflammatory change. 3. There is significant left perinephric inflammation and inflammation extending in the inferior perinephric space. Prior CT demonstrated questionable abnormal enhancement the lower pole. These findings raise suspicion for pyelonephritis. Suggest correlating with clinical examination and a urinalysis. GI Procedure 08/28/18 00:00 CONCLUSION: Dilated common bile duct. Please refer to endoscopist report for further details. Cholangiogram,Operative 08/29/18 00:00 The common duct and intrahepatic biliary ducts are opacified. Common duct appears dilated. It is again tapered distally. Possible faint filling defects in the duct distally on one of the views. CONCLUSION: Dilated common duct again seen. Please refer to surgical report for further details. Chest X-Ray 08/31/18 00:00 CONCLUSION: Hazy bibasilar pleural-parenchymal opacities. Assessment and Plan - Assessment (1) Status post laparoscopic cholecystectomy Code(s): Z90.49 - Acquired absence of other specified parts of digestive tract Status: Acute Plan: 33 year old female POD3 lap matti -S/p ERCP -Likely post procedure pancreatitis -Continue low fat diet -Pain control--- wean off IV morphine; Percocet available -Plan for DC home tomorrow Still painful; recommended to stay at least one more day The exam, history, and the medical decision-making described in the above note were completed with the assistance of the mid-level provider. I reviewed and agree with the findings presented. I attest that I had a [id number] encounter with the patient on the same day, and personally performed and documented my assessment and findings in the medical record. (2) Cholelithiasis Code(s): K80.20 - Calculus of gallbladder without cholecystitis without obstruction Status: Acute (3) Common bile duct dilatation Code(s): K83.8 - Other specified diseases of biliary tract Status: Acute (2) Cholelithiasis Qualifiers: Cholelithiasis location: gallbladder Cholecystitis presence: without cholecystitis Biliary obstruction: without biliary obstruction Qualified Code( s): K80.20 - Calculus of gallbladder without cholecystitis without obstruction
--- NOTE | 2018-09-01 20:32 | XR ---
EXAM DATE: 09/01/2018 8:28 PM EST AGE/SEX: 33 years / Female INDICATIONS: Abdominal pain. CLINICAL DATA: This is the patient's subsequent encounter. Patient reports that signs and symptoms h ave been present for 1 week and indicates a pain score of 10/10. MEDICAL/SURGICAL HISTORY: . Sepsis. Smoker. Cholecystectomy. COMPARISON: [facility] – [place], [place] ABDOMEN & PELVIS W CONTRAST, 08/27/2018. . FINDINGS: The abdominal bowel gas pattern is normal. The liver is estimated at 25 cm craniocaudal. No abnormal masses, calcifications, or other organomegaly is seen. The osseous structures are unremarkable. IUD seen. CONCLUSION: Nonobstructive bowel gas pattern. Nonspecific hepatomegaly. Electronically signed by: Dl Kwok MD 09/01/2018 8:31 PM EST
[2018-09-02] MEDS: metroNIDAZOLE 500 MG Tablet PO SCH ×2 (00:30→09:05)
[2018-09-02] MEDS: oxyCODONE/Acetaminophen 10/325 Tablet PO PRN ×2 (02:08→09:07)
[2018-09-02] MEDS: Morphine Inj 4 MG/ML Vial IV.PUSH PRN ×2 (02:39→06:35)
--- NOTE | 2018-09-02 08:49 | P.PN ---
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 K+ 3.0. UA positive for UTI. +Clue Cells. Chlamydia/Gonorrhoeae negative, Monoscreen negative. CT Abdomen/Pelvis with cholelithiasis, dilatation of CBD but no stone identified , recommendation for MRCP. CXR negative. S/p Rocephin and Flagyl PO in ER. as per General surgery recommended for Cholecystectomy, for Acute cholecystitis. GI DID ERCP 08-28. Pt is NPO currently. She was started on Flagyl due to BV. We will change Flagyl to 500mg Q8 and add Levaquin 750mg Qday. Levaquin + Flagyl will give Gram negative and anaerobic coverage. Patient is allergic to PCN. 08/29: Had ERCP wit stent placement and sphincterotomy 08/28, had Lap cholecystectomy 08/29, not yet cleared by General Surgery. 09/01: Seen in her bedroom, no nausea, vomit or diarrhea, with Diagnosis of Cholelithiasis, Common bile duct dilatation, status post Laparoscopic cholecystectomy with intraoperative cholangiogram with intraoperative use of fluoroscopy POD#3, Status post ERCP, likely post procedural pancreatitis, plan to discharge tomorrow. 09/02: Stable POD#4, No nausea, vomit or diarrhea, okay to discharge as per General monitoring specialist, replaced Electrolytes. Physical Exam Vital signs: Vital Signs 09/01/18 12:00 09/01/18 16:00 09/01/18 20:00 Temperature 98.7 F 99 F 99.5 F Pulse Rate 58 L 59 L 72 Respiratory Rate 17 17 18 Blood Pressure 143/78 H 116/72 126/69 Pulse Oximetry 95 94 L 94 L 09/02/18 00:00 09/02/18 04:00 Temperature 99.3 F 98.3 F Pulse Rate 76 61 Respiratory Rate 18 18 Blood Pressure 165/75 H 120/66 Pulse Oximetry 93 L 95 Intake & Output 09/01/18 09/02/18 09/02/18 18:59 06:59 18:59 Intake Total 580 / 580 Balance 580 / 580 Weight 76.3 kg Intake: IV 100 / 100 Rocephin Inj 2,000 MG In NS Inj 100 / 100 100 ML @ 200 mls/hr IV.SIG Q24H [facility] Rx#:[id number] Oral 480 / 480 Other: # Voids 4 5 Date of Last Bowel Movement 08/31/18 Narrative: GENERAL: No acute distress. Neck is supple there is no JVD RESPIRATORY: No obvious rhonchi or wheezing. GASTROINTESTINAL: Abdomen soft, clean surgical wounds MUSCULOSKELETAL: Extremities without clubbing, cyanosis, or edema. NEUROLOGICAL: Awake, alert and oriented x4. Results - Labs CBC & Chem 7: 09/01/18 06:08 09/01/18 06:08 Microbiology 08/27/18 22:35 Blood - Peripheral Aerobic Blood Culture - Final No growth in 5 days 08/27/18 22:35 Blood - Peripheral Anaerobic Blood Culture - Final No growth in 5 days 08/27/18 22:40 Blood - Peripheral Aerobic Blood Culture - Final No growth in 5 days 08/27/18 22:40 Blood - Peripheral Anaerobic Blood Culture - Final No growth in 5 days - Imaging Impressions Abdomen X-Ray 09/01/18 00:00 CONCLUSION: Nonobstructive bowel gas pattern. Nonspecific hepatomegaly. - Procedures Most importantly patient will need to have the pancreatic stent removed if it does not fall out by itself within the next week or so Patient to have a KUB of the abdomen in 1 week and based on that we will make a decision about going in to remove the pancreatic stent Addendum Documented By: Juan Bass MD 08/28/[id number] Addendum Signed By: <Electronically signed by Juan Bass MD> 12/14 Date of procedure: 08/28/18 Pre-op diagnosis: Choledocholithiasis as evidenced on MRCP Procedure: PROCEDURE PERFORMED [] PROCEDURE: The procedure, risks and benefits were discussed with Patient/POA and informed consent was obtained. Anesthesia sedated Patient with Diprivan. Patient was placed in prone position. ERCP: Patient was placed in a prone position. The Pentax videoscope was introduced through the oropharynx and advanced to the second portion of the duodenum where the ampula was identified. FINDINGS: The ampulla appeared to be unremarkable and within normal limits initial cannulation was that of the pancreatic duct several cannulations were made of the pancreatic duct and a such a 5 Slovak 3 cm pancreatic stent was placed to reduce risk of pancreatitis and indomethacin 100 mg suppositories were given needle-knife was performed in order to allow for bile duct cannulation again several attempts were made with no cannulation then Kinevac was given but no secretions were noted finally prior to giving up I was able to obtain cannulation of the common bile duct which appeared to be significantly dilated to about 15 mm with a gradual tapering towards the ampulla 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 a generous sphincterotomy was performed then using the 15 mm balloon we were able to perform 2 sweeps with no stones noted to be coming out and no filling defects were seen in the bile duct and subsequently the procedure was terminated ESTIMATED BLOOD LOSS: None SPECIMENS REMOVED: None COMPLICATIONS: None 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 Documented By: Juan Bass MD (1) Choledocholithiasis with acute cholecystitis with obstruction (2) Cholelithiasis (3) Common bile duct dilatation - Postoperative Diagnosis (1) Choledocholithiasis with acute cholecystitis with obstruction Date of procedure: 08/29/18 Procedure: Laparoscopic cholecystectomy with intraoperative cholangiogram with intraoperative use of fluoroscopy Surgeon: Shin Joy MD Folder Operator: Shoshana Christensen CFA Estimated blood loss (mL): 50 IV fluids (mL): 1,100 Pathology: other (Gallbladder and contents to pathology) Operation and Findings: Patient was taken to the operating room and placed on the operating table in the supine position. After an adequate level of general endotracheal anesthesia was achieved the abdomen was prepped and draped in the usual fashion. Time-out was taken, confirming the correct patient, site, and procedure to be performed. Skin and subcutaneous tissue was infiltrated with local anesthetic and incision made in the umbilicus. The peritoneal cavity was directly visualized. A 12 mm balloon trocar was inserted and the balloon inflated. The abdomen was insufflated. The patient was placed in reverse Trendelenburg position. Three 5 mm trocars were then placed, with the first to the right of the falciform ligament and the second and third in the right subcostal region. All entered the abdominal cavity under direct vision uneventfully. The fundus of the gallbladder was grasped and retracted upward. Omental adhesions were taken down off of the gallbladder with both electrocautery and blunt dissection. The infundibulum was retracted laterally. The cystic artery was circumferentially dissected, doubly clipped proximally, singly clipped on the gallbladder side and divided. The cystic duct was circumferentially dissected as well and a single clip placed on the gallbladder side. A cystic ductotomy was made and an Jewell cholangiocatheter brought in via separate stab incision. A cholangiocatheter was inserted and secured in the to the cystic duct with an Endo Clip. Cholangiogram was obtained as the patient had ERCP the previous day and as there was some difficulty with cannulating the duct, the undersigned wanted to confirm that all filling defects were cleared. Real-time cholangio-gram was obtained under fluoroscopy; however, while the contrast filled the common bile duct, common hepatic duct, right and left hepatic ducts and some of the right hepatic radicles, no contrast flowed into the duodenum. 1 mg of glucagon was given IV and after waiting 3-5 minutes, repeat cholangiogram failed to demonstrate any flow of contrast into the duodenum. This was felt to be due to swelling at the papilla and thus no further manipulations were made. The cholangiocatheter was removed and the cystic duct divided. The cystic duct was secured with a 0 PDS Endoloop and 3 endoclips to help minimize the chance of any bile leakage while the papillary swelling resolved. The gallbladder was then dissected off of the liver bed with electrodissection. The gallbladder was placed into an Endo Catch device and removed via the umbilical port while observing via the upper 5 mm trocar site. The liver bed was made hemostatic with electrocautery. The cystic artery stump and cystic duct stump are seen to be clean and dry. All irrigation was aspirated from the abdominal cavity. Insufflation was discontinued and the upper abdominal trocars removed under direct vision. During desufflation, no bleeding was noted from the upper abdominal trocar sites. The laparoscope and umbilical port were then removed. The fascia was closed in the umbilicus with two figure- of-eight 0 Vicryl sutures and a single simple interrupted 0 Vicryl suture. The remaining local anesthetic was injected into each of the trocar sites. The skin was closed at each of the trocar sites with 4-0 Vicryl in an interrupted buried fashion. All sites were dressed with Steri-Strips. The patient was extubated and taken back to the recovery room in stable condition. Sponge and needle counts were reported to be correct. Patient tolerated the procedure extremely well. Documented By: Shin Joy MD 08/29/18 1016 Assessment and Plan - Assessment (1) Sepsis Code(s): A41.9 - Sepsis, unspecified organism Status: Acute (2) UTI (urinary tract infection) Code(s): N39.0 - Urinary tract infection, site not specified Status: Acute (3) Bacterial vaginosis Code(s): N76.0 - Acute vaginitis; B96.89 - Other specified bacterial agents as the cause of diseases classified elsewhere Status: Acute (4) Cholelithiasis Code(s): K80.20 - Calculus of gallbladder without cholecystitis without obstruction Status: Acute - Plan 1. Sepsis: Temp 100.5, HR 114, WBC 20.3, Source-UTI, S/p Blood cultures, continue IV Rocephin, follow up cultures, IVF for hydration. 2. UTI secondary to E Coli on Ceftriaxone. 3. Cholelithiasis: CT Abd/Pelvis w/ cholelithiasis and CBD dilatation, images reviewed, will check MRCP-IUD in place +copper. Status post ERCP and stent placement and sphincterotomy, with Diagnosis of Cholelithiasis, Common bile duct dilatation, status post Laparoscopic cholecystectomy with intraoperative cholangiogram with intraoperative use of fluoroscopy POD#3, Likely post procedural Pancreatitis, stable today better pain control, okay to discharge home. 4. Bacterial Vaginosis: S/p Flagyl PO in ER, will continue w/ Flagyl 500mg bid x7 days. 5. history of IVDU. 6. Electrolyte derangement replaced. DVT Prophylaxis: SCD/Teds Code Status: Full code. Discussed Condition With: Patient and Nurse Miss Orosco. Discharge Planning: Discharge home today. (1) Sepsis Qualifiers: Sepsis type: sepsis due to unspecified organism Qualified Code(s): A41.9 - Sepsis, unspecified organism (2) UTI (urinary tract infection) Qualifiers: Urinary tract infection type: site unspecified Hematuria presence: with hematuria Qualified Code(s): N39.0 - Urinary tract infection, site not specified; R31.9 - Hematuria, unspecified (4) Cholelithiasis Qualifiers: Cholelithiasis location: gallbladder Cholecystitis presence: without cholecystitis Biliary obstruction: without biliary obstruction Qualified Code( s): K80.20 - Calculus of gallbladder without cholecystitis without obstruction
[2018-09-02] MEDS: Senna/Docusate Sodium 8.6/50 MG Tablet PO SCH (09:05)
[2018-09-02] MEDS ORDERED: Magnesium Sulfate Inj 2 GM in Sodium Chlor 0.9% Inj 96 ML IV.SIG ONE (10:00)
[2018-09-02] MEDS ORDERED: oxyCODONE/Acetaminophen 10/325 Tablet PO PRN (11:07)
--- NOTE | 2018-09-02 11:45 | P.PNGS ---
Subjective Interval history: Resting in bed Wants to go home Still used morphine overnight Physical Exam Vital signs: Vital Signs 09/01/18 12:00 09/01/18 16:00 09/01/18 20:00 Temperature 98.7 F 99 F 99.5 F Pulse Rate 58 L 59 L 72 Respiratory Rate 17 17 18 Blood Pressure 143/78 H 116/72 126/69 Pulse Oximetry 95 94 L 94 L 09/02/18 00:00 09/02/18 04:00 09/02/18 08:00 Temperature 99.3 F 98.3 F 98.5 F Pulse Rate 76 61 66 Respiratory Rate 18 18 18 Blood Pressure 165/75 H 120/66 123/77 Pulse Oximetry 93 L 95 92 L Intake & Output 09/01/18 09/02/18 09/02/18 18:59 06:59 18:59 Intake Total 580 / 580 Balance 580 / 580 Weight 76.3 kg Intake: IV 100 / 100 Rocephin Inj 2,000 MG In NS Inj 100 / 100 100 ML @ 200 mls/hr IV.SIG Q24H [facility] Rx#:[id number] Oral 480 / 480 Other: # Voids 4 5 Date of Last Bowel Movement 08/31/18 08/31/18 Narrative: Alert and awake Abd: mild epigastric tenderness to palpation; Steri Strips in place; abdomen soft Results - Labs 09/01/18 06:08 09/01/18 06:08 - Imaging Imaging: ITS Impressions Abdomen/Pelvis CT 08/27/18 22:06 CONCLUSION: Cholelithiasis with dilatation of common bile duct but no discrete stone identified. MRCP could be performed for further evaluation if clinically indicated. Cholangiopancreatography MRI 08/28/18 00:00 CONCLUSION: 1. There is extrahepatic bile duct dilatation, as above with likely 2 tiny stones in the distal common duct measuring between 2 and 3 mm. 2. Gallbladder is distended and contains multiple stones. However, the gallbladder demonstrates no wall thickening or inflammatory change. 3. There is significant left perinephric inflammation and inflammation extending in the inferior perinephric space. Prior CT demonstrated questionable abnormal enhancement the lower pole. These findings raise suspicion for pyelonephritis. Suggest correlating with clinical examination and a urinalysis. GI Procedure 08/28/18 00:00 CONCLUSION: Dilated common bile duct. Please refer to endoscopist report for further details. Cholangiogram,Operative 08/29/18 00:00 The common duct and intrahepatic biliary ducts are opacified. Common duct appears dilated. It is again tapered distally. Possible faint filling defects in the duct distally on one of the views. CONCLUSION: Dilated common duct again seen. Please refer to surgical report for further details. Chest X-Ray 08/31/18 00:00 CONCLUSION: Hazy bibasilar pleural-parenchymal opacities. Abdomen X-Ray 09/01/18 00:00 CONCLUSION: Nonobstructive bowel gas pattern. Nonspecific hepatomegaly. Assessment and Plan - Assessment (1) Status post laparoscopic cholecystectomy Code(s): Z90.49 - Acquired absence of other specified parts of digestive tract Status: Acute Plan: 33 year old female POD4 lap matti -S/p ERCP -Likely post procedure pancreatitis ---resolving -Continue low fat diet -Pain control--- DC morphine -Home when pain controlled using Percocet -Rx on chart (2) Cholelithiasis Code(s): K80.20 - Calculus of gallbladder without cholecystitis without obstruction Status: Acute (3) Common bile duct dilatation Code(s): K83.8 - Other specified diseases of biliary tract Status: Acute (2) Cholelithiasis Qualifiers: Cholelithiasis location: gallbladder Cholecystitis presence: without cholecystitis Biliary obstruction: without biliary obstruction Qualified Code( s): K80.20 - Calculus of gallbladder without cholecystitis without obstruction
--- NOTE | 2018-09-02 17:02 | P.DS ---
Date of admission: 08/28/18 01:19 Primary care physician: No Primary Care Physician Attending physician on discharge: Shun Rodriguez Anticipated date of discharge: 09/02/18 Brief History from admission: This is a 33-year-old female with no significant PMH who presented to the ER with complaints of left flank pain in addition to fever and vaginal discharge x2 days. Pain is intermittent, sharp, 10/10, non-radiating. Reports h/o IVDU, however no use in several months. On arrival, BP 101/52, HR 115, O2 sat 97% on RA, Temp 100.5. WBC 20.3. INR 1.1. K+ 3.0. Creatinine 1.11. UA positive for UTI. +Clue Cells. Chlamydia/Gonorrhoeae negative, Monoscreen negative. CT Abdomen/Pelvis with cholelithiasis, dilatation of CBD but no stone identified , recommendation for MRCP. CXR negative. S/p Rocephin and Flagyl PO in ER. DS: Diagnosis - Discharge Diagnosis (1) Sepsis Status: Acute (2) UTI (urinary tract infection) Status: Acute (3) Bacterial vaginosis Status: Acute (4) Cholelithiasis Status: Acute DS: Medications - Discharge Medications Prescriptions: metronidazole 500 mg PO BID #10 tab oxycodone-acetaminophen [Percocet] 1 tab PO Q4H PRN #25 tab PRN Reason: Acute Pain Exception DS: Summary Hospital Course: This is a pleasant 33 y/o female admitted to the Hospital with left flank pain, fever and vaginal discharge for 2 days, reported history of IVDU, WBC 20.3. K+ 3.0. UA positive for UTI. +Clue Cells. Chlamydia/Gonorrhoeae negative, Monoscreen negative. CT Abdomen/Pelvis with cholelithiasis, dilatation of CBD but no stone identified , recommendation for MRCP. CXR negative. S/p Rocephin and Flagyl PO in ER. as per General surgery recommended for Cholecystectomy, for Acute cholecystitis. GI DID ERCP 08-28. Pt is NPO currently. She was started on Flagyl due to BV. We will change Flagyl to 500mg Q8 and add Levaquin 750mg Qday. Levaquin + Flagyl will give Gram negative and anaerobic coverage. Patient is allergic to PCN. 08/29: Had ERCP wit stent placement and sphincterotomy 08/28, had Lap cholecystectomy 08/29, not yet cleared by General Surgery. 09/01: Seen in her bedroom, no nausea, vomit or diarrhea, with Diagnosis of Cholelithiasis, Common bile duct dilatation, status post Laparoscopic cholecystectomy with intraoperative cholangiogram with intraoperative use of fluoroscopy POD#3, Status post ERCP, likely post procedural pancreatitis, plan to discharge tomorrow. 09/02: Stable POD#4, No nausea, vomit or diarrhea, okay to discharge as per General technology infusion specialist, replaced Electrolytes. Assessment and Plan - Assessment (1) Sepsis Code(s): A41.9 - Sepsis, unspecified organism Status: Acute (2) UTI (urinary tract infection) Code(s): N39.0 - Urinary tract infection, site not specified Status: Acute (3) Bacterial vaginosis Code(s): N76.0 - Acute vaginitis; B96.89 - Other specified bacterial agents as the cause of diseases classified elsewhere Status: Acute (4) Cholelithiasis Code(s): K80.20 - Calculus of gallbladder without cholecystitis without obstruction Status: Acute - Plan 1. Sepsis: Temp 100.5, HR 114, WBC 20.3, Source-UTI, S/p Blood cultures, continue IV Rocephin, follow up cultures, IVF for hydration. 2. UTI secondary to E Coli on Ceftriaxone. 3. Cholelithiasis: CT Abd/Pelvis w/ cholelithiasis and CBD dilatation, images reviewed, will check MRCP-IUD in place +copper. Status post ERCP and stent placement and sphincterotomy, with Diagnosis of Cholelithiasis, Common bile duct dilatation, status post Laparoscopic cholecystectomy with intraoperative cholangiogram with intraoperative use of fluoroscopy POD#3, Likely post procedural Pancreatitis, stable today better pain control, okay to discharge home. 4. Bacterial Vaginosis: S/p Flagyl PO in ER, will continue w/ Flagyl 500mg bid x7 days. 5. history of IVDU. 6. Electrolyte derangement replaced. DVT Prophylaxis: SCD/Teds Code Status: Full code. Discussed Condition With: Patient and Nurse Miss Orosco. Discharge Planning: Discharge home today. - Time Spent with Patient Total time spent providing and/or coordinating discharge services: Greater than 30 minutes - Quality: VTE Deep Vein Thrombosis/Pulmonary Embolism Present on Admission: No Exam Vital signs: Vital Signs 09/01/18 20:00 09/02/18 00:00 09/02/18 04:00 Temperature 99.5 F 99.3 F 98.3 F Pulse Rate 72 76 61 Respiratory Rate 18 18 18 Blood Pressure 126/69 165/75 H 120/66 Pulse Oximetry 94 L 93 L 95 09/02/18 08:00 09/02/18 12:00 Temperature 98.5 F 98.2 F Pulse Rate 66 56 L Respiratory Rate 18 14 Blood Pressure 123/77 113/68 Pulse Oximetry 92 L 94 L Intake & Output 09/01/18 09/02/18 09/02/18 18:59 06:59 18:59 Intake Total 580 / 580 Balance 580 / 580 Weight 76.3 kg Intake: IV 100 / 100 Rocephin Inj 2,000 MG In NS Inj 100 / 100 100 ML @ 200 mls/hr IV.SIG Q24H [facility] Rx#:[id number] Oral 480 / 480 Other: # Voids 4 5 Date of Last Bowel Movement 08/31/18 08/31/18 Narrative: GENERAL: No acute distress. Neck is supple there is no JVD RESPIRATORY: No obvious rhonchi or wheezing. GASTROINTESTINAL: Abdomen soft, clean surgical wounds MUSCULOSKELETAL: Extremities without clubbing, cyanosis, or edema. NEUROLOGICAL: Awake, alert and oriented x4. Results Procedures completed during hospitalization: Most importantly patient will need to have the pancreatic stent removed if it does not fall out by itself within the next week or so Patient to have a KUB of the abdomen in 1 week and based on that we will make a decision about going in to remove the pancreatic stent Addendum Documented By: Juan Bass MD 08/28/[id number] Addendum Signed By: <Electronically signed by Juan Bass MD> 12/14 Date of procedure: 08/28/18 Pre-op diagnosis: Choledocholithiasis as evidenced on MRCP Procedure: PROCEDURE PERFORMED [] PROCEDURE: The procedure, risks and benefits were discussed with Patient/POA and informed consent was obtained. Anesthesia sedated Patient with Diprivan. Patient was placed in prone position. ERCP: Patient was placed in a prone position. The Pentax videoscope was introduced through the oropharynx and advanced to the second portion of the duodenum where the ampula was identified. FINDINGS: The ampulla appeared to be unremarkable and within normal limits initial cannulation was that of the pancreatic duct several cannulations were made of the pancreatic duct and a such a 5 [place] 3 cm pancreatic stent was placed to reduce risk of pancreatitis and indomethacin 100 mg suppositories were given needle-knife was performed in order to allow for bile duct cannulation again several attempts were made with no cannulation then Kinevac was given but no secretions were noted finally prior to giving up I was able to obtain cannulation of the common bile duct which appeared to be significantly dilated to about 15 mm with a gradual tapering towards the ampulla 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 a generous sphincterotomy was performed then using the 15 mm balloon we were able to perform 2 sweeps with no stones noted to be coming out and no filling defects were seen in the bile duct and subsequently the procedure was terminated ESTIMATED BLOOD LOSS: None SPECIMENS REMOVED: None COMPLICATIONS: None 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 Documented By: Juan Bass MD (1) Choledocholithiasis with acute cholecystitis with obstruction (2) Cholelithiasis (3) Common bile duct dilatation - Postoperative Diagnosis (1) Choledocholithiasis with acute cholecystitis with obstruction Date of procedure: 08/29/18 Procedure: Laparoscopic cholecystectomy with intraoperative cholangiogram with intraoperative use of fluoroscopy Surgeon: Shin Joy MD [employer] Operator: Shoshana Christensen CFA Estimated blood loss (mL): 50 IV fluids (mL): 1,100 Pathology: other (Gallbladder and contents to pathology) Operation and Findings: Patient was taken to the operating room and placed on the operating table in the supine position. After an adequate level of general endotracheal anesthesia was achieved the abdomen was prepped and draped in the usual fashion. Time-out was taken, confirming the correct patient, site, and procedure to be performed. Skin and subcutaneous tissue was infiltrated with local anesthetic and incision made in the umbilicus. The peritoneal cavity was directly visualized. A 12 mm balloon trocar was inserted and the balloon inflated. The abdomen was insufflated. The patient was placed in reverse Trendelenburg position. Three 5 mm trocars were then placed, with the first to the right of the falciform ligament and the second and third in the right subcostal region. All entered the abdominal cavity under direct vision uneventfully. The fundus of the gallbladder was grasped and retracted upward. Omental adhesions were taken down off of the gallbladder with both electrocautery and blunt dissection. The infundibulum was retracted laterally. The cystic artery was circumferentially dissected, doubly clipped proximally, singly clipped on the gallbladder side and divided. The cystic duct was circumferentially dissected as well and a single clip placed on the gallbladder side. A cystic ductotomy was made and an Jewell cholangiocatheter brought in via separate stab incision. A cholangiocatheter was inserted and secured in the to the cystic duct with an Endo Clip. Cholangiogram was obtained as the patient had ERCP the previous day and as there was some difficulty with cannulating the duct, the undersigned wanted to confirm that all filling defects were cleared. Real-time cholangio-gram was obtained under fluoroscopy; however, while the contrast filled the common bile duct, common hepatic duct, right and left hepatic ducts and some of the right hepatic radicles, no contrast flowed into the duodenum. 1 mg of glucagon was given IV and after waiting 3-5 minutes, repeat cholangiogram failed to demonstrate any flow of contrast into the duodenum. This was felt to be due to swelling at the papilla and thus no further manipulations were made. The cholangiocatheter was removed and the cystic duct divided. The cystic duct was secured with a 0 PDS Endoloop and 3 endoclips to help minimize the chance of any bile leakage while the papillary swelling resolved. The gallbladder was then dissected off of the liver bed with electrodissection. The gallbladder was placed into an Endo Catch device and removed via the umbilical port while observing via the upper 5 mm trocar site. The liver bed was made hemostatic with electrocautery. The cystic artery stump and cystic duct stump are seen to be clean and dry. All irrigation was aspirated from the abdominal cavity. Insufflation was discontinued and the upper abdominal trocars removed under direct vision. During desufflation, no bleeding was noted from the upper abdominal trocar sites. The laparoscope and umbilical port were then removed. The fascia was closed in the umbilicus with two figure- of-eight 0 Vicryl sutures and a single simple interrupted 0 Vicryl suture. The remaining local anesthetic was injected into each of the trocar sites. The skin was closed at each of the trocar sites with 4-0 Vicryl in an interrupted buried fashion. All sites were dressed with Steri-Strips. The patient was extubated and taken back to the recovery room in stable condition. Sponge and needle counts were reported to be correct. Patient tolerated the procedure extremely well. Documented By: Shin Joy MD 08/29/18 1016 Completed studies during hospitalization: Pending at discharge 08/29/18 07:32 Surgical [PTH] Routine - Impressions ITS Impressions Abdomen/Pelvis CT 08/27/18 22:06 CONCLUSION: Cholelithiasis with dilatation of common bile duct but no discrete stone identified. MRCP could be performed for further evaluation if clinically indicated. Cholangiopancreatography MRI 08/28/18 00:00 CONCLUSION: 1. There is extrahepatic bile duct dilatation, as above with likely 2 tiny stones in the distal common duct measuring between 2 and 3 mm. 2. Gallbladder is distended and contains multiple stones. However, the gallbladder demonstrates no wall thickening or inflammatory change. 3. There is significant left perinephric inflammation and inflammation extending in the inferior perinephric space. Prior CT demonstrated questionable abnormal enhancement the lower pole. These findings raise suspicion for pyelonephritis. Suggest correlating with clinical examination and a urinalysis. GI Procedure 08/28/18 00:00 CONCLUSION: Dilated common bile duct. Please refer to endoscopist report for further details. Cholangiogram,Operative 08/29/18 00:00 The common duct and intrahepatic biliary ducts are opacified. Common duct appears dilated. It is again tapered distally. Possible faint filling defects in the duct distally on one of the views. CONCLUSION: Dilated common duct again seen. Please refer to surgical report for further details. Chest X-Ray 08/31/18 00:00 CONCLUSION: Hazy bibasilar pleural-parenchymal opacities. Abdomen X-Ray 09/01/18 00:00 CONCLUSION: Nonobstructive bowel gas pattern. Nonspecific hepatomegaly. Discharge Plan - Discharge Disposition Patient Disposition: Discharge Home - Discharge Condition Condition: Stable - Discharge Order Discharge Orders: Discharge Order (Routine); Ordered 09/02/18 Ordered By: Shun Rodriguez - Discharge Details Anticipated Discharge Date: 09/02/18 Discharge Comment: Follow up with PCP in three days - Physicians Team Primary Care Provider: Primary Care Roeli,No Attending Provider: Shun Rodriguez Other Providers: Juan Bass MD ; Shin Joy MD
== END 2018-09-02 15:37 | disposition home or self-care (01) ==
LOC: NEPD 19:32 → NEDA 08-28 01:19 → N06 08-28 02:00
PROVIDERS: ADMIT Internal Medicine; ATTEND Internal Medicine